=== PATIENT | male | born 1965 | race Caucasian/White ===

== ENCOUNTER 2019-08-30 08:31 | Emergency (ER) | payer OTHER, SELFPAY ==
[2019-08-30 08:44] VITALS: BP 144/81; PULSE 74; RESP 16; TEMP 37.2; O2SAT 100
--- NOTE | 2019-08-30 08:55 | ED.MALEGU ---
HPI - Male Genitourinary General Chief complaint: Urogenital-Male Stated complaint: Frequent urination and burning Time Seen by Provider: 08/30/19 08:56 Source: patient and RN notes reviewed History of Present Illness HPI Narrative: Patient is a 53-year-old male presents the urgent care with complaints of urinary frequency, urgency, burning with urination. Patient states is been ongoing for approximately 5 days. Patient has a history of kidney stones and had at the lips a trip see procedure done approximately 2 weeks ago. Patient denies any notable blood in the urine, visible with the naked eye. States that he called his urologist and they were unable to get him in until . Patient was instructed to follow-up at the urgent care to determine whether he had a urinary tract infection. Patient denies of any low back pain, fever, nausea, vomiting, abdominal pain. Patient has been using Tylenol. No other acute complaints. No acute distress noted. Patient read the plan of care. Related Data Home Medications Medication Instructions Recorded Confirmed aspirin 81 mg tablet,delayed 81 mg PO DAILY 07/22/19 release atorvastatin 80 mg tablet 80 mg PO DAILY 07/22/19 carvedilol 6.25 mg tablet 6.25 mg PO Q12H 07/22/19 ezetimibe 10 mg tablet 10 mg PO DAILY 07/22/19 losartan 25 mg tablet 25 mg PO DAILY 07/22/19 calcium polycarbophil [FiberCon] 1,250 mg PO WEEKLY 08/30/19 08/30/19 cholecalciferol (vitamin D3) 125 mcg PO DAILY 08/30/19 08/30/19 [Vitamin D3] nitroglycerin 0.4 mg SUBLINGUAL ONCE 08/30/19 08/30/19 tadalafil 20 mg PO DAILY 08/30/19 08/30/19 ticagrelor [Brilinta] 60 mg PO Q12H 08/30/19 08/30/19 Allergies Allergy/AdvReac Type Severity Reaction Status Date / Time lisinopril Allergy Unknown Verified 08/30/19 08:57 Review of Systems Review of Systems: Narrative: CONSTITUTIONAL: Denies fever, chills, or sweats. EYES: Denies visual changes, redness, or discharge. ENT: Denies rhinorrhea, congestion, sore throat, or otalgia. CARDIOVASCULAR: Denies chest pain, palpitations, or edema. RESPIRATORY: Denies cough or dyspnea. GASTROINTESTINAL: Denies abdominal pain, nausea, vomiting, or diarrhea. GENITOURINARY: Reports of dysuria, frequency, urgency SKIN: Denies rash or itching. MUSCULOSKELETAL: Denies back pain, joint pain, or myalgia. NEUROLOGIC: Denies headache, numbness, or weakness. All other systems reviewed are negative, except as documented in HPI. [facility] Past Medical History Medical History (Updated 08/30/19 @ 09:10 by KELLIE Pryor) Coronary artery disease involving [place] heart with angina pectoris Essential hypertension Surgical History Surgical History (Updated 07/22/19 @ 14:57 by Екатерина Ruiz, [facility]) History of heart artery stent Family History Family History (Updated 11/23/17 @ 07:15 by DOCTOR UNKNOWN) Sibling Family history of obesity Family history of coronary artery disease Family history of diabetes mellitus in first degree relative Mother Patient's mother is Family history of heart disease in male family member before age 55 Father Acute myocardial infarction, Onset Age: 52 Family history of coronary artery disease, Onset Age: 52 Family history of heart disease in male family member before age 55 Grandparent Carcinoma of colon Social History Social History Smoking status: Never smoker Second hand tobacco smoke exposure: No Alcohol intake: never Gender identity (if verbalized by the patient): Male Comments At the time of my signature, I reviewed and agree with the nursing past medical, surgical, social, and family history. There is no relevant family history pertinent to the patient complaint. Exam Narrative: Exam Narrative: GENERAL: This is a well-nourished, well-developed patient, in no apparent distress. HEAD: normocephalic, atraumatic. EYES: PERRL. Sclera clear/white. Vision
== END 2019-08-30 09:15 | disposition home or self-care (01) ==
PROVIDERS: Emergency Provider Nurse Practitioner Family; PCP Internal Medicine
DX: R30.0 Dysuria (principal); I25.110 Atherosclerotic heart disease of native coronary artery with unstable angina pectoris; I10 Essential (primary) hypertension; Z95.5 Presence of coronary angioplasty implant and graft; Z87.442 Personal history of urinary calculi
CPT/HCPCS: 81003; 99212; G0463

== ENCOUNTER 2020-02-06 08:21 | Outpatient (CLI) | payer OTHER, SELFPAY ==
[2020-02-06 09:09] LABS: Alanine Aminotransferase 33 U/L (4-50); Albumin Level 4.4 g/dL (3.5-5.1); Alkaline Phosphatase 63 U/L (38-126); Anion Gap 11.4 mmol/L (7-16); Aspartate Amino Transferase 26 U/L (17-59); Bilirubin,Total 0.8 mg/dL (0.2-1.3); Blood Urea Nitrogen 19 mg/dL (9-20); Calcium 9.5 mg/dL (8.4-10.2); Carbon Dioxide 27 mmol/L (22-30); Chloride 104 mmol/L (98-107); Cholesterol 152 mg/dL (0-200); Estimated Glomerular Filt Rate > 60; Glucose 104 mg/dL (75-110); HDL Direct 40 mg/dL; Potassium 4.4 mmol/L (3.4-5.0); Sodium 138 mmol/L (137-145); Triglycerides 79 mg/dL (<150)
[2020-02-06 09:20] LABS: LDL Cholesterol Direct 90 mg/dL
[2020-02-06 09:35] LABS: Vitamin D 25 Hydroxy 34.6 ng/mL
== END 2020-02-06 08:22 | disposition home or self-care (01) ==
PROVIDERS: PCP Internal Medicine; Visit Provider Nurse Practitioner Adult Health
DX: E78.00 Pure hypercholesterolemia, unspecified (principal); I25.2 Old myocardial infarction; E55.9 Vitamin D deficiency, unspecified
CPT/HCPCS: 36415; 80053; 80061; 82306

== ENCOUNTER 2021-08-18 10:30 | Emergency (ER) | payer OTHER, SELFPAY ==
[2021-08-18 10:39] VITALS: BP 136/86; PULSE 89; RESP 16; TEMP 36.8; O2SAT 98
--- NOTE | 2021-08-18 10:46 | ED.URI ---
HPI - URI/Sore Throat General Chief Complaint: Upper Respiratory Infection Stated Complaint: Cough Time Seen by Provider: 08/18/21 10:46 Source: patient, family, RN notes reviewed and old records reviewed Mode of arrival: ambulatory Limitations: no limitations History of Present Illness HPI Narrative: 55-year-old male presents to the [facility] with complaints of a cough. States he has had it since he is recovered from Covid. Was diagnosed July 31 with Covid. Reports very mild symptoms. States he just cannot get over the cough. Has tried [id number] products with minimal to no relief. Related Data Home Medications Medication Instructions Recorded Confirmed aspirin 81 mg tablet,delayed 81 mg PO DAILY 07/22/19 08/18/21 release atorvastatin 80 mg tablet 80 mg PO DAILY 07/22/19 08/18/21 carvedilol 6.25 mg tablet 6.25 mg PO Q12H 07/22/19 08/18/21 ezetimibe 10 mg tablet 10 mg PO DAILY 07/22/19 08/18/21 calcium polycarbophil [FiberCon] 1,250 mg PO WEEKLY 08/30/19 08/18/21 cholecalciferol (vitamin D3) 125 mcg PO DAILY 08/30/19 08/18/21 [Vitamin D3] nitroglycerin 0.4 mg SUBLINGUAL ONCE 08/30/19 08/18/21 tadalafil 20 mg PO DAILY 08/30/19 08/18/21 ticagrelor [Brilinta] 60 mg PO Q12H 08/30/19 08/18/21 losartan 50 mg PO DAILY 08/18/21 08/18/21 Allergies Allergy/AdvReac Type Severity Reaction Status Date / Time lisinopril Allergy Unknown Verified 08/18/21 10:49 Review of Systems Review of Systems: All systems reviewed & are unremarkable except as noted in HPI and below Constitutional: Constitutional: Reports no additional constitutional complaints, Denies chills, Denies fever(s) and Denies headache(s) Eyes: Eyes: Reports no additional eye complaints ENT: Reports system reviewed and no additional complaints, except as documented, Denies vertigo, Denies dizziness, Denies headache(s), Denies nasal congestion and Denies sore throat Cardiovascular: Cardiovascular: Reports no additional cardiovascular complaints, Denies chest pain, Denies syncope, Denies rapid heart rate and Denies dyspnea Respiratory: Respiratory: Reports no additional respiratory complaints, Denies chest congestion, Reports cough, Denies dyspnea and Denies wheezing Gastrointestinal: Gastrointestinal: Reports no additional gastrointestinal complaints, Denies abdominal pain, Denies diarrhea, Denies nausea and Denies vomiting Musculoskeletal: Musculoskeletal: Reports no additional musculoskeletal complaints and Denies numbness Integumentary/Breasts: Skin/Breast: Reports system reviewed and no additional complaints, except as docu Neurologic: Reports system reviewed and no additional complaints, except as documented, Denies vertigo, Denies dizziness, Denies syncope, Denies headache(s), Denies focal weakness and Denies numbness Psychiatric: Psychiatric: Reports no additional psychiatric complaints Allergic/Immunologic: Allergic/Immunologic: Reports no additional allergic/immunologic complaints and Denies wheezing PMFSH Past Medical History Medical History Coronary artery disease involving [place] heart with angina pectoris Essential hypertension Surgical History Surgical History History of heart artery stent Family History Family History Sibling Family history of obesity Family history of coronary artery disease Family history of diabetes mellitus in first degree relative Mother Patient's mother is Family history of heart disease in male family member before age 55 Father Acute myocardial infarction, Onset Age: 52 Family history of coronary artery disease, Onset Age: 52 Family history of heart disease in male family member before age 55 Grandparent Carcinoma of colon Social History Social History Smoking status: Never smoker Second h
== END 2021-08-18 11:06 | disposition home or self-care (01) ==
PROVIDERS: Emergency Provider Nurse Practitioner; PCP Internal Medicine
DX: U07.1 COVID-19 (principal); J20.8 Acute bronchitis due to other specified organisms; I25.110 Atherosclerotic heart disease of native coronary artery with unstable angina pectoris; I10 Essential (primary) hypertension; Z79.82 Long term (current) use of aspirin
CPT/HCPCS: 99213; G0463

== ENCOUNTER 2022-09-24 14:10 | Emergency (ER) | payer OTHER, SELFPAY ==
--- NOTE | 2022-09-24 14:12 | ED.URI ---
HPI - URI/Sore Throat General Chief Complaint: Upper Respiratory Infection Stated Complaint: Covid+ Time Seen by Provider: 09/24/22 14:12 Source: patient Mode of arrival: ambulatory Limitations: no limitations History of Present Illness HPI Narrative: Mr. Hubbard is a 56-year-old male patient presenting to the clinic today with complaints of cough and sinus congestion x5 days. He reports his tested positive for COVID earlier today clinic. He denies any fever or chills. He did an at-home COVID test and stated it was faintly positive. He denies any shortness of breath or chest pain. MD elicited complaint: sore throat and nasal congestion Related Data Home Medications Medication Instructions Recorded Confirmed aspirin 81 mg tablet,delayed 81 mg PO DAILY 07/22/19 10/30/21 release (Adult Aspirin Regimen) atorvastatin 80 mg tablet (Lipitor) 80 mg PO DAILY 07/22/19 10/30/21 carvedilol 6.25 mg tablet 6.25 mg PO Q12H 07/22/19 10/30/21 ezetimibe 10 mg tablet 10 mg PO DAILY 07/22/19 10/30/21 calcium polycarbophil 625 mg 1,250 mg PO WEEKLY 08/30/19 10/30/21 tablet (FiberCon) cholecalciferol (vitamin D3) 125 125 mcg PO DAILY 08/30/19 10/30/21 mcg (5,000 unit) tablet (Vitamin D3) tadalafil 20 mg tablet 20 mg PO DAILY 08/30/19 10/30/21 ticagrelor 60 mg tablet (Brilinta) 60 mg PO Q12H 08/30/19 10/30/21 losartan 50 mg tablet 50 mg PO DAILY 08/18/21 10/30/21 Allergies Allergy/AdvReac Type Severity Reaction Status Date / Time lisinopril Allergy Unknown Verified 09/24/22 14:22 Review of Systems Review of Systems: Pertinent positives per HPI. Patient denies any fever, chills, rash, headache, visual changes, dizziness, cough, shortness of breath, chest pain, palpitations, nausea, vomiting, diarrhea, constipation, abdominal pain, or any urinary issues. [facility] Past Medical History Medical History Coronary artery disease involving [place] heart with angina pectoris Essential hypertension Surgical History Surgical History History of heart artery stent Family History Family History Sibling Family history of obesity Family history of coronary artery disease Family history of diabetes mellitus in first degree relative Mother Patient's mother is Family history of heart disease in male family member before age 55 Father Acute myocardial infarction, Onset Age: 52 Family history of coronary artery disease, Onset Age: 52 Family history of heart disease in male family member before age 55 Grandparent Carcinoma of colon Social History Social History Smoking status: Never smoker Second hand tobacco smoke exposure: No Alcohol intake: never Gender identity (if verbalized by the patient): Male Comments At the time of my signature, I reviewed and agree with the nursing past medical, surgical, social, and family history. There is no relevant family history pertinent to the patient complaint. Exam Narrative: General: Well-developed, well nourished, in no apparent distress Head: Normocephalic, atraumatic Eyes: Pupils equally round and reactive to light bilaterally, EOM intact, sclera and conjunctive clear, no discharge, lids normal Ears: TMs intact and clear, ear canals clear, no drainage, grossly hearing normal. Nose: Nares patent, clear nasal discharge, no inflammation, no sinus tenderness. Mouth: Oral pharynx without lesions or masses, good dentition, MMM. Postnasal drip Neck: Supple, trachea midline, no enlargement of anterior or posterior cervical nodes, no thyroid masses or goiter palpable. Cardio: Regular rate and rhythm, s1 and s2 normal, no murmur appreciated. Resp: Clear to auscultation bilaterally, no rhonchi, rales, wheezing or rubs [place]
[2022-09-24 14:20] VITALS: BP 151/104; PULSE 65; RESP 16; TEMP 36.4; O2SAT 98
== END 2022-09-24 14:49 | disposition home or self-care (01) ==
PROVIDERS: Emergency Provider Nurse Practitioner Family; PCP Internal Medicine
DX: J06.9 Acute upper respiratory infection, unspecified (principal); I25.10 Atherosclerotic heart disease of native coronary artery without angina pectoris; I10 Essential (primary) hypertension; Z20.822 Contact with and (suspected) exposure to COVID-19
CPT/HCPCS: 87426; 99212; C9803; G0463

== ENCOUNTER 2023-12-08 06:33 | Emergency (ER) | payer OTHER, SELFPAY ==
[2023-12-08 06:37] VITALS: BP 185/112; PULSE 83; RESP 15; TEMP 36.8; O2SAT 100
[2023-12-08 07:26] VITALS: BP 149/102; PULSE 72; RESP 18; O2SAT 100
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
--- NOTE | 2023-12-08 07:38 | ECG_ITS ---
SEE SCANNED COPY FOR CONFIRMED REPORT MTDD
--- NOTE | 2023-12-08 07:39 | ED.EPISTAXIS ---
HPI - Epistaxis General Chief complaint: Epistaxis Stated complaint: nose bleed Time Seen by Provider: 12/08/23 06:54 History of Present Illness HPI Narrative: 57-year-old male presents emergency department for evaluation of epistaxis. Patient states Thursday he was getting into the shower had episode of nose bleeding. Patient suspects this was initiated by him blowing his nose. Patient had no epistaxis on Thursday. Patient was getting a shower today blew his nose again and did have some recurrent bleeding. Patient states he was unable to get the bleeding stopped at home so he presented to the emergency department for evaluation. Patient does take Brilinta. Patient does wear a CPAP at nighttime with the admitted he said to the lowest setting. Patient does have an air conditioner running in the house. Patient had epistaxis clamp placed in the waiting room and on on show evaluation bleeding had stopped. Related Data Home Medications Medication Instructions Recorded Confirmed aspirin 81 mg tablet,delayed 81 mg PO DAILY 07/22/19 09/24/22 release (Adult Aspirin Regimen) atorvastatin 80 mg tablet (Lipitor) 80 mg PO DAILY 07/22/19 09/24/22 carvedilol 6.25 mg tablet 6.25 mg PO Q12H 07/22/19 09/24/22 ezetimibe 10 mg tablet 10 mg PO DAILY 07/22/19 09/24/22 calcium polycarbophil 625 mg 1,250 mg PO WEEKLY 08/30/19 09/24/22 tablet (FiberCon) cholecalciferol (vitamin D3) 125 125 mcg PO DAILY 08/30/19 09/24/22 mcg (5,000 unit) tablet (Vitamin D3) tadalafil 20 mg tablet 20 mg PO DAILY 08/30/19 09/24/22 ticagrelor 60 mg tablet (Brilinta) 60 mg PO Q12H 08/30/19 09/24/22 losartan 50 mg tablet 50 mg PO DAILY 08/18/21 09/24/22 Allergies Allergy/AdvReac Type Severity Reaction Status Date / Time lisinopril Allergy Unknown Verified 12/08/23 07:29 Review of Systems Review of Systems: All systems reviewed & are unremarkable except as noted in HPI and below PMFSH Past Medical History Medical History Coronary artery disease involving [place] heart with angina pectoris Essential hypertension Surgical History Surgical History History of heart artery stent Family History Family History Sibling Family history of obesity Family history of coronary artery disease Family history of diabetes mellitus in first degree relative Mother Patient's mother is Family history of heart disease in male family member before age 55 Father Acute myocardial infarction, Onset Age: 52 Family history of coronary artery disease, Onset Age: 52 Family history of heart disease in male family member before age 55 Grandparent Carcinoma of colon Social History Social History Smoking status: Never smoker Second hand tobacco smoke exposure: No Alcohol intake: never Gender identity (if verbalized by the patient): Male Exam Narrative: APPEARANCE: Well appearing, no pain, no distress, well-nourished. HEAD: normocephalic, atraumatic. EYES: PERRLA/EOMI, conjunctivae clear. NOSE: Normal no drainage EARS:TMS clear with good light reflex. THROAT: Pharynx clear, no exudate. Nasal: Epistaxis was resolved after nasal clamp placed in triage, patient was asked to blow his nose and did clear additional clot out of the left nostril. Clamp was reapplied. NECK: Supple. No adenopathy, no masses. RESPIRATORY: Airway patent, respirations nonlabored. Clear to auscultation bilaterally, no rales, rhonchi, wheezing. CARDIOVASCULAR: Regular rate and rhythm without murmurs rubs or gallops. ABDOMINAL: Soft, nontender, nondistended, normal bowel sounds MUSCULOSKELETAL: Moves all extremities. Strength/ROM intact, No edema, No calf tenderness. NEURO: Alert. Cranial nerves II through XII intact. Good gait. Good
--- NOTE | 2023-12-08 08:18 | PC.NURSE ---
Active bleeding noted from left nares. Nasal clamped applied with gauze nasal drip pad. Dr. García informed
[2023-12-08 08:19] VITALS: BP 149/101; PULSE 70; RESP 18; TEMP 36.6; O2SAT 98
[2023-12-08 08:21] LABS: Basophils Percent Auto 0.7 % (0.2-1.2); Eosinophils Absolute Auto 0.1 K/mm3 (0-0.3); Eosinophils Percent Auto 1.7 % (0-4.4); Hematocrit 44.1 % (42.0-52.0); Hemoglobin 14.4 g/dL (14.0-18.0); Immature Granulocyte Absolute 0.02 K/mm3 (0.00-0.031); Immature Granulocyte Percent A 0.3 % (0-0.5); Lymphocytes Absolute Auto 1.64 K/mm3 (0.9-3.2); Lymphocytes Percent Auto 28.2 % (18.3-44.2); Mean Corpuscular HGB Conc 32.7 g/dl (32-36); Mean Corpuscular Hemoglobin 30.8 pg (26-34); Mean Corpuscular Volume 94.4 fl (80-100); Mean Platelet Volume 9.9 fl (7.4-10.4); Monocytes Absolute Auto 0.7 K/mm3 (0.1-0.6); Monocytes Percent Auto 11.9 % (2.6-8.5); Neutrophils Absolute Auto 3.3 K/mm3 (1.3-6.7); Neutrophils Percent Auto 57.2 % (45.5-73.1); Platelet Count Result 235 k/mm3 (150-375); Red Blood Count 4.67 M/mm3 (4.6-6.20); Red Cell Distribution Width 13.2 % (11.5-14.5); White Blood Count 5.8 K/mm3 (4.5-10.0)
[2023-12-08 08:31] LABS: Partial Thromboplastin Time 25.6 Seconds (22.3-36.8); Prothrombin Time 13.7 Seconds (11.1-14.7)
[2023-12-08 08:32] LABS: Alanine Aminotransferase 21 U/L (6-50); Albumin Level 3.9 g/dL (3.5-5.1); Alkaline Phosphatase 58 U/L (38-126); Anion Gap 4 mmol/L (4-12); Aspartate Amino Transferase 26 U/L (17-59); Blood Urea Nitrogen 22 mg/dL (9-20); Calcium 8.9 mg/dL (8.4-10.2); Carbon Dioxide 24 mmol/L (22-30); Chloride 110 mmol/L (98-107); Estimated CRCL calculation 90 ml/min; Estimated Glomerular Filt Rate > 60; Glucose 118 mg/dL (65-110); Potassium 3.8 mmol/L (3.4-5.0); Sodium 138 mmol/L (137-145)
--- NOTE | 2023-12-08 09:14 | PC.NURSE ---
Packing intact to left nares, no increase in bleeding noted.
[2023-12-08 09:37] VITALS: BP 151/90; PULSE 72; RESP 16; O2SAT 98
== END 2023-12-08 09:39 | disposition home or self-care (01) ==
PROVIDERS: Emergency Provider Emergency Medicine
DX: R04.0 Epistaxis (principal); I10 Essential (primary) hypertension; I25.119 Atherosclerotic heart disease of native coronary artery with unspecified angina pectoris; Z95.5 Presence of coronary angioplasty implant and graft; Z79.82 Long term (current) use of aspirin; Z79.899 Other long term (current) drug therapy; R94.31 Abnormal electrocardiogram [ECG] [EKG]; I51.7 Cardiomegaly
CPT/HCPCS: 30901; 36415; 80053; 85025; 85610; 85730; 93005; 99283; A9270

== ENCOUNTER 2023-12-16 19:30 | Emergency (ER) | payer OTHER, SELFPAY ==
[2023-12-16 19:35] VITALS: BP 151/89; PULSE 74; RESP 18; TEMP 36.6; O2SAT 100
--- NOTE | 2023-12-16 19:47 | ED.EPISTAXIS ---
HPI - Epistaxis General Chief complaint: Epistaxis Stated complaint: epitaxis Time Seen by Provider: 12/16/23 19:35 Source: patient Mode of arrival: ambulatory Limitations: no limitations History of Present Illness HPI Narrative: this is a 57-year-old male With PMH of CAD, HTN, NOAH who presents to the ED with chief complaint of epistaxis ongoing intermittently for the past week or so. Patient reports that today it started back up around 1800 and lasted about 20 minutes. He thought it had stopped but then it started again so he presents to the ER. takes Brilinta for CAD. reports starting air humidifier last night but does not seem to help. Bleeding is predominantly worse on the left. There was maybe a little bit of bleeding on the right today. He does feel the blood has been draining into his throat and he has had to hack up blood occasionally. Denies syncope, lightheadedness, shortness of breath. Related Data Home Medications Medication Instructions Recorded Confirmed aspirin 81 mg tablet,delayed 81 mg PO DAILY 07/22/19 09/24/22 release (Adult Aspirin Regimen) atorvastatin 80 mg tablet (Lipitor) 80 mg PO DAILY 07/22/19 09/24/22 carvedilol 6.25 mg tablet 6.25 mg PO Q12H 07/22/19 09/24/22 ezetimibe 10 mg tablet 10 mg PO DAILY 07/22/19 09/24/22 calcium polycarbophil 625 mg 1,250 mg PO WEEKLY 08/30/19 09/24/22 tablet (FiberCon) cholecalciferol (vitamin D3) 125 125 mcg PO DAILY 08/30/19 09/24/22 mcg (5,000 unit) tablet (Vitamin D3) tadalafil 20 mg tablet 20 mg PO DAILY 08/30/19 09/24/22 ticagrelor 60 mg tablet (Brilinta) 60 mg PO Q12H 08/30/19 09/24/22 losartan 50 mg tablet 50 mg PO DAILY 08/18/21 09/24/22 Allergies Allergy/AdvReac Type Severity Reaction Status Date / Time lisinopril Allergy Unknown Verified 12/08/23 07:29 Review of Systems Review of Systems: All systems as dictated in [facility] Past Medical History Medical History Coronary artery disease involving [place] heart with angina pectoris Essential hypertension Surgical History Surgical History History of heart artery stent Family History Family History Sibling Family history of obesity Family history of coronary artery disease Family history of diabetes mellitus in first degree relative Mother Patient's mother is Family history of heart disease in male family member before age 55 Father Acute myocardial infarction, Onset Age: 52 Family history of coronary artery disease, Onset Age: 52 Family history of heart disease in male family member before age 55 Grandparent Carcinoma of colon Social History Social History Smoking status: Never smoker Second hand tobacco smoke exposure: No Alcohol intake: never Gender identity (if verbalized by the patient): Male Exam Narrative: GENERAL: Well-appearing, well-nourished, and in no acute distress. HEAD: Normocephalic, atraumatic. EYES: PERRLA and EOMI. ENT: active epistaxis on the left. No active epistaxis on the right. Difficult to visualize exact spot of bleeding but seems to be anterior and along the septum. Mucous membranes moist. Oropharynx without tonsillar hypertrophy exudate or other lesions. NECK: Supple. No adenopathy or masses. CHEST: No respiratory distress. Clear to auscultation. No wheezes rales or rhonchi HEART: Regular rate and rhythm. No murmur heard. Normal peripheral pulses. ABDOMEN: Soft, nontender, nondistended, normal active bowel sounds. MSK: Normal range of motion. No edema. SKIN: Warm, dry, no rash. NEURO: Alert and oriented x3. No focal deficits. PSYCH: Normal mood and affect. Course Vital Signs Vital signs: Vital Signs Temperature 97.8 F 12/16/23 19:35 Pulse Rate 7
[2023-12-16] MEDS: OXYMETAZOLINE HCL 0.05% NAS 15 ML BTL (*BKC) 1 SPRAY NASAL (20:24)
== END 2023-12-16 21:52 | disposition home or self-care (01) ==
PROVIDERS: Emergency Provider Physician Assistant
DX: R04.0 Epistaxis (principal); I25.10 Atherosclerotic heart disease of native coronary artery without angina pectoris; I10 Essential (primary) hypertension; G47.33 Obstructive sleep apnea (adult) (pediatric); Z79.82 Long term (current) use of aspirin
CPT/HCPCS: 30901; 99283; A9270

== ENCOUNTER 2024-02-26 10:48 | Outpatient (CLI) | payer OTHER, SELFPAY ==
[2024-02-26 11:46] LABS: Cholesterol 149 mg/dL (0-200); HDL Direct 46 mg/dL; Triglycerides 73 mg/dL (<150)
[2024-02-26 11:57] LABS: LDL Cholesterol Direct 80 mg/dL
== END 2024-02-26 10:49 | disposition home or self-care (01) ==
LOC: ANHLAB 10:51
PROVIDERS: Visit Provider Nurse Practitioner Adult Health
DX: E78.00 Pure hypercholesterolemia, unspecified (principal)
CPT/HCPCS: 36415; 80061

== ENCOUNTER 2024-07-12 08:51 | Emergency (ER) | payer BC, SELFPAY ==
--- NOTE | ~2024-07-12 | XR_ITS ---
Clinical Indication: Cough PA and lateral views of the chest: Comparison: 03/17/2013 Findings: The lungs are clear, without evidence of focal consolidation or pleural effusion. Cardiome diastinal silhouette is within normal limits. Bones and soft tissues are unremarkable. Impression: Normal chest. Reviewed, dictated and finalized at [facility]. 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
--- NOTE | 2024-07-12 08:53 | ED_ITS ---
HPI - URI/Sore Throat General Chief Complaint: Upper Respiratory Infection Stated Complaint: Cold/flu symptoms Time Seen by Provider: 07/12/24 08:53 Source: patient Mode of arrival: ambulatory Limitations: no limitations History of Present Illness HPI Narrative: Ruben is a 58 old male patient presenting to the clinic today with complaints of cold/flu symptoms. He reports he is having cough, sinus pressure, nasal congestion, chest congestion, and chest discomfort with taking deep breaths and coughing. States the symptoms have been going on for or 6 days. Denies any known fever or chills. Cough is productive with yellow phlegm. Is a nonsmoker. No history of COPD or asthma. MD elicited complaint: sore throat and nasal congestion Related Data Home Medications ?Medication ?Instructions ?Recorded ?Confirmed ?Last Taken ?Type aspirin 81 mg tablet,delayed 81 mg PO DAILY 07/22/19 07/12/24 Unknown History release (Adult Aspirin Regimen) atorvastatin 80 mg tablet (Lipitor) 80 mg PO DAILY 07/22/19 07/12/24 Unknown History carvedilol 6.25 mg tablet 6.25 mg PO Q12H 07/22/19 07/12/24 Unknown History ezetimibe 10 mg tablet 10 mg PO DAILY 07/22/19 07/12/24 Unknown History calcium polycarbophil 625 mg 1,250 mg PO WEEKLY 08/30/19 07/12/24 Unknown History tablet (FiberCon) cholecalciferol (vitamin D3) 125 125 mcg PO DAILY 08/30/19 07/12/24 Unknown History mcg (5,000 unit) tablet (Vitamin D3) tadalafil 20 mg tablet 20 mg PO DAILY 08/30/19 07/12/24 Unknown History ticagrelor 60 mg tablet (Brilinta) 60 mg PO Q12H 08/30/19 07/12/24 Unknown History losartan 50 mg tablet 50 mg PO DAILY 08/18/21 07/12/24 Unknown History Allergies Allergy/AdvReac Type Severity Reaction Status Date / Time lisinopril Allergy Unknown Verified 07/12/24 08:59 Review of Systems Review of Systems: Pertinent positives per HPI. Patient denies any fever, chills, rash, headache, visual changes, dizziness, sore throat, chest pain, palpitations, nausea, vomiting, diarrhea, constipation, abdominal pain, or any urinary issues. PMFSH Past Medical History Medical History Coronary artery disease involving [place] heart with angina pectoris Essential hypertension Surgical History Surgical History History of heart artery stent Family History Family History Sibling Family history of obesity Family history of coronary artery disease Family history of diabetes mellitus in first degree relative Mother Patient's mother is Family history of heart disease in male family member before age 55 Father Acute myocardial infarction, Onset Age: 52 Family history of coronary artery disease, Onset Age: 52 Family history of heart disease in male family member before age 55 Grandparent Carcinoma of colon Social History Social History Smoking status: Never smoker Second hand tobacco smoke exposure: No Alcohol intake: never Gender identity (if verbalized by the patient): Male Comments At the time of my signature, I reviewed and agree with the nursing past medical, surgical, social, and family history. There is no relevant family history pertinent to the patient complaint. Exam Narrative: General: Well-developed, well nourished, in no apparent distress Head: Normocephalic, atraumatic Eyes: Pupils equally round and reactive to light bilaterally, EOM intact, sclera and conjunctive clear, no discharge, lids normal Ears: TMs intact and congested, ear canals ceruminous, no drainage, grossly hearing normal. Nose: Nares patent, and nasal discharge, no inflammation, no sinus tenderness. Mouth: Oral pharynx without lesions or masses, good dentition, MMM. Postnasal drip Neck: Supple, trachea midline, no enlargement of anterior or posterior cervical nodes, no thyroid masses or goiter palpable. Cardio: Regular rate and rhythm, s1 and s2 normal, no murmur appreciated. Resp: Diminished in the bases otherwise clear, no rhonchi, rales, wheezing or rubs Course Course Emergency Course: Portions of this record may have been created with voice recognition software. Level of Care: Express Care Visit Vital Signs Vital signs: Vital Signs Temperature 36.2 C L 07/12/24 09:01 Pulse Rate 87 07/12/24 09:01 Respiratory Rate 16 07/12/24 09:01 Blood Pressure 151/109 H 07/12/24 09:01 Pulse Oximetry 98 07/12/24 09:01 Oxygen Delivery Room Air 07/12/24 09:01 Temperature 36.2 C L 07/12/24 09:01 Pulse Rate 87 07/12/24 09:01 Respiratory Rate 16 07/12/24 09:01 Blood Pressure 151/109 H 07/12/24 09:01 Pulse Oximetry 98 07/12/24 09:01 Oxygen Delivery Room Air 07/12/24 09:01 Vital signs reviewed MDM - URI/Sore Throat MDM Narrative Medical decision making narrative: At the time of visit patient is resting comfortably on the exam table. Patient appears to be nontoxic. Diagnostics: Chest x-ray was performed negative in the clinic today. Plan: I suspect patient has bronchitis/URI. Supportive measures were discussed with the patient and they voiced understanding discharge instructions and agrees to treatment plan. Return precautions reviewed Differential Diagnosis Differential diagnosis: Likely upper respiratory infection, otitis media, sinusitis, viral infection, bronchitis, influenza, pharyngitis and other (COVID) Imaging Data Radiologist's impression: ITS Impressions Chest X-Ray 07/12/24 09:14 Impression: Normal chest. Discharge Plan Discharge Clinical Impression: Bronchitis Upper respiratory infection Qualifiers: URI type: unspecified URI Qualified Code(s): J06.9 - Acute upper respiratory infection, unspecified Patient Disposition: Home, Self-Care Condition: Stable Instructions: Antibiotic Form, Upper Respiratory Infection (ED), Acute Bronchitis (ED) Additional Instructions: Chest x-rays negative for any acute cardiopulmonary process. Take prescription medications only as prescribed-prednisone and albuterol inhaler Increase fluids and stay well hydrated Tylenol/motrin for pain/fever Flonase and OTC antihistamines as directed Vicks vapor rub to open sinuses Sinus rinses for congestion Cepacol spray, cough drops, throat lozenges, warm tea with honey/lemon, gargle salt water to soothe throat BRAT diet for diarrhea Clear liquids x 24 hours then advance as tolerated for nausea/vomiting Go to the ED if you develop a worsening in your condition- high fever not controlled by Tylenol or Motrin, dehydration, weakness, lethargy, shortness of breath, or chest pain. Follow up with your PCP in 3-5 days if symptoms persist. Patient Language: Korean Prescriptions: New prednisone 20 mg tablet 40 mg PO DAILY 5 Days Qty: 10 0RF albuterol sulfate 90 mcg/actuation HFA aerosol inhaler 2 puff inhalation Q4-6H PRN (Reason: shortness of breath or wheezing) 30 Days Qty: 8.5 0RF No Action losartan 50 mg tablet 50 mg PO DAILY calcium polycarbophil [FiberCon] 625 mg Tablet 1,250 mg PO WEEKLY Brilinta 60 mg Tablet 60 mg PO Q12H tadalafil 20 mg Tablet 20 mg PO DAILY cholecalciferol (vitamin D3) [Vitamin D3] 125 mcg (5,000 unit) Tablet 125 mcg PO DAILY aspirin [Adult Aspirin Regimen] 81 mg tablet,delayed release (DR/EC) 81 mg PO DAILY Patient Comments: carvedilol 6.25 mg tablet 6.25 mg PO Q12H ezetimibe 10 mg tablet 10 mg PO DAILY atorvastatin [Lipitor] 80 mg tablet 80 mg PO DAILY Follow-up/Referrals: UNKNOWN,DOCTOR [Non-Staff] - Time of Disposition: 09:19 Quality NIHSS Nursing Documentation ED NIHSS nursing documentation: reviewed/agree
[2024-07-12 09:01] VITALS: BP 151/109; PULSE 87; RESP 16; TEMP 36.2; O2SAT 98
== END 2024-07-12 09:25 | disposition home or self-care (01) ==
PROVIDERS: Emergency Provider Nurse Practitioner Family
DX: J40 Bronchitis, not specified as acute or chronic (principal); J06.9 Acute upper respiratory infection, unspecified; I25.110 Atherosclerotic heart disease of native coronary artery with unstable angina pectoris; I10 Essential (primary) hypertension; Z95.5 Presence of coronary angioplasty implant and graft
CPT/HCPCS: 71046; 99213; G0463

== ENCOUNTER 2024-12-19 13:40 | Emergency (ER) | payer BC, SELFPAY ==
--- NOTE | ~2024-12-19 | CT_ITS ---
EXAMINATION: CT abdomen pelvis wo con DATE: 12/19/2024 14:55 INDICATION: flank pain, hematuria TECHNIQUE: Computed tomography (CT) of the abdomen and pelvis was performed without intravenous contr ast. Automated exposure control and iterative reconstruction technique were employed. The dose-length product was 856.95 mGy-cm. COMPARISON: 05/29/2017; MR abdomen 06/12/2017. FINDINGS: Lower thorax: Coronary artery calcifications. Liver: Unremarkable. Redemonstration of a segment 4A hemangioma as determined by prior MR, decreased in size. Biliary/Gallbladder: Gallbladder is normal. No bile duct dilation. Pancreas: No mass or duct dilation. Spleen: Normal. Adrenals:No mass. Kidneys: Subcentimeter right upper pole hypodensity, too small to characterize, cyst on prior MRI. Mi ld right hydronephrosis. Normal left kidney. GI tract: No small or large bowel dilation. Normal appendix. Mesentery/Peritoneum: No ascites, mass, or free air. Retroperitoneum: No mass. Atherosclerotic calcifications of intra-abdominal arterial vessels. Pelvis: Nearly empty urinary bladder. Prostatomegaly 5 x 9 mm calcification in the right distal urete r. Soft Tissues: Small uncomplicated fat-containing umbilical and left inguinal hernias. Bones: No acute osseous finding. IMPRESSION: 5 x 9 mm right distal ureteral stone causing mild obstructive uropathy. Reviewed, dictated and finalized at location K.
[2024-12-19 13:43] VITALS: BP 177/100; PULSE 90; RESP 16; TEMP 36.6; O2SAT 96
[2024-12-19 14:02] VITALS: BP 194/111; PULSE 76; RESP 12; TEMP 36.6; O2SAT 97
[2024-12-19 14:14] VITALS: BP 194/111; PULSE 76; RESP 15; O2SAT 99
--- OUTSIDE RECORDS SUMMARY | 2024-12-19 14:53 | XMS_ITS | Clinical Summary ---
Author Organization [facility] [address] Address [address] [place] [address] Care Team Providers Care Car Repairer Name Role Phone Unknown, Notinfile Primary Care Provider Unavail able Allergies Active Allergy Reactions Criticality Noted Date Comments Lisinopril Cough Low 02/15/2019 Medications aspirin (ASPIRIN LOW DOSE) 81 mg tablet take 1 tablet by oral route every day 0 0 4 Active cholecalciferol (VITAMIN D-3) 5,000 unit tablet Take 1 tablet (5,000 Units total) by mouth daily Active polycarbophil (FIBERCON) 625 mg tablet Take 1 tablet (625 mg total) by mouth as needed Active tadalafiL (CIALIS) 20 mg tabletIndications :Erectile dysfunction due to arterial insufficiency TAKE 1 TABLET DAILY NEEDED FOR ERECTILE DYSFUNCTION 10 tablet 11 3 Active atorvastatin (LIPITOR) 80 mg tabletIndications :Pure hypercholesterole gelacio,Coronary artery disease involving [place] coronary artery of [place] heart without angina pectoris Take 1 tablet (80 mg total) by mouth daily 90 tablet 3 4 Active ticagrelor (Brilinta) 60 mg tabletIndications :Coronary artery disease involving [place] coronary artery of [place] heart without angina pectoris Take 1 tablet (60 mg total) by mouth 2 (two) times a day 180 tablet 3 4 Active carvediloL (COREG) 6.25 mg tabletIndications :Coronary artery disease involving [place] coronary artery of [place] heart without angina pectoris,Essentia l hypertension Take 1 tablet (6.25 mg total) by mouth 2 (two) times a day with meals 180 tablet 3 4 Active ezetimibe (ZETIA) 10 mg tabletIndications :Pure hypercholesterole gelacio,Coronary artery disease involving [place] coronary artery of [place] heart without angina pectoris Take 1 tablet (10 mg total) by mouth daily 90 tablet 3 4 Active losartan (COZAAR) 50 mg tabletIndications :Essential hypertension Take 1 tablet (50 mg total) by mouth daily 90 tablet 3 4 Active Active Problems Problem Noted Date Diagnosed Date Morbid (severe) obesity due to excess calories 0 03/07/2022 Essential hypertension 03/13/2021 NOAH (obstructive sleep apnea) 03/13/2021 Obesity (BMI 30-39.9) 08/10/2018 Family history of premature CAD 08/10/[address] elevation myocardial infarction (S TAVO) 03/04/2018 Presence of stent in coronary artery 01/23/2016 Overview (10/18/2016): Hx of heart artery stent Male erectile disorder 07/09/2015 Overview (10/18/2016): Mixed erectile dysfunction Coronary artery disease invo lving [place] coronary artery of [place] heart without angina pectoris 12/12/2014 Overview (10/18/2016): Coronary atherosclerosis Old myocardial infarction 12/12/2014 Overview (10/18/2016): Old myocardial infarction Pure hypercholesterolemia 12/12/2014 Overview (10/18/2016): Hyperlipidemia Resolved Problems Problem Noted Date Diagnosed Date Resolved Date Acute pain of left knee 03/13/202102/11 Counseling procedure with explicit context 07/09/2015 03/13/2021 Overview (10/18/2016): Encounter for medication counseling Patient encounter status 07/09/201507/2020 Overview (10/18/2016): Dietary counseling Encounters Date Type Department Care Team Description 12/14/[address] [facility] Cardiology [address] [place] [id number] Keesha Robertson NP from Last 3 Months Surgical History Surgery Date Site/Laterality Comments LITHOTRIPSY 08/13/2019 - 09/10/2019 CORONARY ANGIOPLASTY CARDIAC CATHETERIZATION Medical History Medical History Date Comments Hx Other Medical NOAH, HLD, CAD s /p PCI to Dx/LAD/Cx Heart disease 03/14/2013 Sleep apnea 03/15/2013 Kidney stone 1999 and 2019 Family History Medical History Relation Name Comments Coronary artery disease Brother 2 Hamilton Dorothy nary Artery Disease; Coronary artery disease Father Donavan Hubbard Dorothy nary Artery Disease; Cause of : Coronary Artery Disease Heart attack Father Donavan Hubbard Several MIs, st arting age 37, at 52 y.o. 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 Gender Identity Male 03/13/2021 12:39 AM CDT Sexual Orientation Straight 03/13/2021 12 :39 AM CDT Obstetrics History Last Filed Vital Signs Vital Sign Reading Time Taken Comments Blood Pressure 122/72 03/01/2024 3:36 PM CDT Pulse 82 03/01/2024 3:36 PM CDT Temperature - - Respiratory Rate - - Oxygen Saturation 96% 03/01/2024 3:36 PM CDT Inhaled Oxygen Concentration - - Weight 107 kg (236 lb) 03/01/2024 3:36 PM CDT Height 167.6 cm (5' 6) 03/01/2024 3:36 PM CDT Body Mass Index 38.09 03/01/2024 3:36 PM CDT Plan of Treatment Health Maintenance Due Date Last Done Comments Colon Cancer Screening-Colonoscopy 1965 Depression Screening 1965 Hepatitis C Screening 1965 Prostate Cancer Screening-PSA 1965 Hepatitis B Screening 12/28/1983 Regular Well Visit/Exam 18-64 12/28/1983 Zoster Vaccine (1 of 2) 12/28/2015 Influenza Vaccine (Season Ended) 2025 04/01/2021, 04/18/2020, 04/22/2019, Additional history exists DTaP/Tdap/Td Vaccine (2 - Td or Tdap) 06/29/2029 06/29/2019 Pneumococcal vaccine <65 Aged Out No longer eligible based on patient's age to complete this topic Insurance ANTHEM ACCESS ANTHEM ACCESS Care Teams Car Repairer Relationship Specialty Start Date End Date Unknown, Notinfile PCP - General 04/06/23
--- OUTSIDE RECORDS SUMMARY | 2024-12-19 14:53 | XMS_ITS | Clinical Summary ---
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 Gender Identity Not on file Sexual Orientation Not on file Plan of Treatment Health Maintenance Due Date Last Done Comments Hepatitis C Virus (HCV) Screening 1965 Hepatitis B Immunization (1 of 3 - 19+ 3-dose series) 1984 Colonoscopy 2010 Colorectal Cancer Screening 2010 Cologuard 12/28/2015 Immunochemical Fecal Occult Blood 12/28/2015 Pneumococcal Immunization (50+ years) (1 of 1 - PCV) 12/28/2015 Zoster Immunization (1 of 2) 12/28/2015 PSA Discussion 2020 Influenza Immunization (#1) 03/13/20240 01/2020, 04/22/2019, 04/12/2019, Additional history exists SARS-COV-2 Immunization ( season) 2024 Respiratory Syncytial Virus (RSV) Immunization (Adult) (1 - 1-dose 75+ series) 2040 DTaP/Tdap/Td Immunization Discontinued 06/29/2019 TdaP Immunization Completed 06/29/2019 Meningococcal Immunization (ACWY) Aged Out No longer eligible based on patient's age to complete this topic Pneumococcal Immunization Combined Aged Out No longer eligible based on patient's age to complete this topic Rotavirus Immunization Aged Out No lo nger eligible based on patient's age to complete this topic Insurance [employer] Member Subscriber Plan / Payer (Ef fective for All Dates) Name:Ruben Hubbard Member ID:[id number] Relation to Subscriber:Self Name:Ruben Hubbard Subscriber ID:Not on file Payer ID:PAPER Type:Not on file
--- OUTSIDE RECORDS SUMMARY | 2024-12-19 14:53 | XMS_ITS | Referral Summary ---
Author Organization [facility] [address] Address [address] [place] [address] Care Team Providers Care Water Carter Name Role Phone Unknown, Notinfile Primary Care Provider Unavail able Encounters Date Type Department Care Team Description 12/14/[address] [facility] Cardiology [address] [place] [address] Keesha Robertson NP from Last 3 Months Allergies Active Allergy Reactions Criticality Noted Date [...] tabletIndications :Pure hypercholesterole gelacio,Coronary artery disease involving [place] coronary artery of [place] heart without angina pectoris Take 1 tablet (80 mg total) by mouth daily 90 tablet 3 4 Active ticagrelor (Brilinta) 60 mg tabletIndications :Coronary artery disease involving [place] coronary artery of [place] heart without angina pectoris Take 1 tablet (60 mg total) by mouth 2 (two) times a day 180 tablet 3 4 Active carvediloL (COREG) 6.25 mg tabletIndications :Coronary artery disease involving [place] coronary artery of [place] heart without angina pectoris,Essentia l hypertension Take 1 tablet (6.25 mg total) by mouth 2 (two) times a day with meals 180 tablet 3 4 Active ezetimibe (ZETIA) 10 mg tabletIndications :Pure hypercholesterole gelacio,Coronary artery disease involving [place] coronary artery of [place] heart without angina pectoris Take 1 tablet [...] erectile dysfunction Coronary artery disease invo lving [place] coronary artery of [place] heart without angina pectoris 12/12/2014 Overview (10/18/2016): Coronary atherosclerosis Old myocardial infarction 12/12/2014 Overview (10/18/2016): Old myocardial infarction Pure hypercholesterolemia 12/12/2014 Overview (10/18/2016): Hyperlipidemia Resolved Problems Problem Noted Date Diagnosed Date Resolved Date Acute pain of left knee 03/13/202102/11 Counseling procedure with explicit context 07/09/2015 03/13/2021 Overview (10/18/2016): Encounter for medication counseling Patient encounter status 07/09/201507/2020 Overview (10/18/2016): Dietary counseling Social History Tobacco Use Types Packs/Day Years Used Date Smoking Tobacco: Never Smokeless Tobacco: Never Alcohol Use Standard Drinks/Week Comments Never 0 (1 standard drink = 0.6 oz pur e alcohol) Sex and Gender Information Value Date Recorded Sex Assigned at Not on file Legal Sex Male 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
--- OUTSIDE RECORDS SUMMARY | 2024-12-19 14:53 | XMS_ITS | Clinical Summary ---
Author Organization [facility] Address [address] [place] [address] Phone Care Team Providers Care Trust Evaluation Supervisor Name Role Phone Cecilia Gomez MD Primary Care Provider [phone] Allergies No known active allergies Medications carvedilol (COREG) 12.5 mg tablet Take 12.5 mg by mouth 2 times daily with meals. Active losartan (COZAAR) 100 mg tablet Take 100 mg by mouth daily. Active aspirin (JOHANN CHEWABLE) 81 mg Tablet, Chewable Take 81 mg by mouth daily. Active polycarbophil calcium (FIBERCON) 625 mg tablet Take 625 mg by mouth daily. Active prasugrel (EFFIENT) 10 mg Tablet Take 10 mg by mouth. Active silver sulfADIAZINE (SILVADENE) 1 % Cream Apply to affected area daily. 50 Gram None 6 Active traMADol (ULTRAM) 50 mg tablet Take 1 Tablet (50 mg) by mouth every 6 hours as needed for Pain, Moderate or Pain, Severe. 12 Tablet None 6 Active atorvastatin (LIPITOR) 10 mg tablet Take 10 mg by mouth Daily LATE. Active Active Problems No known active problems Social History Tobacco Use Types Packs/Day Years Used Date Smoking Tobacco: Never Smokeless Tobacco: Never Alcohol Use Standard Drinks/Week Comments No 0 (1 standard drink = 0.6 oz pur e alcohol) Sex and Gender Information Value Date Recorded Sex Assigned at Not on file Legal Sex Male 7:33 PM CDT Gender Identity Not on file Sexual Orientation Not on file Last Filed Vital Signs Vital Sign Reading Time Taken Comments Blood Pressure 112/76 02/05/2016 1:31 PM CDT Pulse - - Temperature 37.6 C (99.6 F) 01/16/2016 7:41 PM CDT Respiratory Rate 15 01/16/2016 10:54 PM CDT Oxygen Saturation 94% 01/16/2016 10:54 PM CDT Inhaled Oxygen Concentration - - Weight 102.1 kg (225 lb) 02/05/2016 1:31 PM CDT Height 167.6 cm (5' 6) 02/05/2016 1:31 PM CDT Body Mass Index 36.32 02/05/2016 1:31 PM CDT Plan of Treatment Health Maintenance Due Date Last Done Comments DTAP/TDAP/TD VACCINES (1 - Tdap) 1984 HEPATITIS B VACCINES (1 of 3 - 19+ 3-dose series) 12/11 COLORECTAL SCREENING 2010 Colorectal Cancer Screening 2010 FIT-DNA Q 3 years 2010 FIT/FOBT Q 1 year 2010 Flex Sig/CT Colonography Q 5 years 2010 ZOSTER VACCINE (1 of 2) 12/28/2015 INFLUENZA VACCINE (#1) 2024 Care Teams Trust Evaluation Supervisor Relationship Specialty Start Date End Date Cecilia Gomez MD PCP - General Family Practice 01/16/16
[2024-12-19 14:58] LABS: Add Urine Microscopic? YES; Appearance Urine Clear (Clear); Bacteria Urine None Seen /hpf; Bilirubin Urine Negative (Negative); Blood Urine 3+ (Negative); Color Urine Yellow (Yellow); Glucose Urine UA Negative (Negative); Ketones Urine Trace mg/dL (Negative); Leukocyte Esterase Ur Negative LEU/UL (Negative); Nitrate Urine Negative (Negative); Non Pathogenic Casts 0-2; Protein Urine Trace mg/dL (Negative); RBC Urine >100 /hpf (0-2); Specific Grav Ur 1.022 (1.001-1.035); Squamous Epithelial Cell Urine None Seen /hpf (Few); WBC Urine 0-5 /hpf (0-3); pH Urine 5.5 (5.0-9.0)
--- NOTE | 2024-12-19 15:07 | ED.MALEGU ---
HPI - Male Genitourinary General Chief complaint: Urogenital-Male Stated complaint: possible stone obstruction? Urinary output decreas Time Seen by Provider: 12/19/24 14:27 Source: patient, RN notes reviewed and old records reviewed Mode of arrival: ambulatory Limitations: no limitations History of Present Illness HPI Narrative: This is a 58 year old male who presents for evaluation of difficulty urinating. PAtient states that starting 1 month ago he developed right flank pain. He was out of town so did not seek treatment but he presumed he had a kidney stone. He was evaluated at an urgent care 2 weeks ago for penile pain, dysuria and he was treated for UTI. He states his flank pain has resolved but he reports he is urinating little bit at a time. He states his urine is dark yellow but he has not seen blood since the beginning of November. Related Data Home Medications ?Medication ?Instructions ?Recorded ?Confirmed ?Last Taken ?Type aspirin 81 mg tablet,delayed 81 mg PO DAILY 07/22/19 07/12/24 Unknown History release (Adult Aspirin Regimen) atorvastatin 80 mg tablet (Lipitor) 80 mg PO DAILY 07/22/19 07/12/24 Unknown History carvedilol 6.25 mg tablet 6.25 mg PO Q12H 07/22/19 07/12/24 Unknown History ezetimibe 10 mg tablet 10 mg PO DAILY 07/22/19 07/12/24 Unknown History calcium polycarbophil 625 mg 1,250 mg PO WEEKLY 08/30/19 07/12/24 Unknown History tablet (FiberCon) cholecalciferol (vitamin D3) 125 125 mcg PO DAILY 08/30/19 07/12/24 Unknown History mcg (5,000 unit) tablet (Vitamin D3) tadalafil 20 mg tablet 20 mg PO DAILY 08/30/19 07/12/24 Unknown History ticagrelor 60 mg tablet (Brilinta) 60 mg PO Q12H 08/30/19 07/12/24 Unknown History losartan 50 mg tablet 50 mg PO DAILY 08/18/21 07/12/24 Unknown History Allergies Allergy/AdvReac Type Severity Reaction Status Date / Time lisinopril Allergy Unknown Verified 07/12/24 08:59 [facility] Past Medical History Medical History (Updated 12/19/24 @ 16:31 by Melissa Ruiz MD) Calculus of ureter Coronary artery disease involving [place] heart with angina pectoris Essential hypertension Surgical History Surgical History History of heart artery stent Family History Family History Sibling Family history of obesity Family history of coronary artery disease Family history of diabetes mellitus in first degree relative Mother Patient's mother is Family history of heart disease in male family member before age 55 Father Acute myocardial infarction, Onset Age: 52 Family history of coronary artery disease, Onset Age: 52 Family history of heart disease in male family member before age 55 Grandparent Carcinoma of colon Social History Social History Smoking status: Never smoker Second hand tobacco smoke exposure: No Alcohol intake: never Gender identity (if verbalized by the patient): Male Exam Const: General: no acute distress and alert HENMT: Head: normal to inspection Ears: TM's normal bilaterally Eyes: EOM: EOMs intact bilaterally Resp: Effort & Inspection: normal respiratory effort Auscultation: clear to auscultation bilaterally Cardio: Rate: regular rate Rhythm: regular rhythm Heart sounds: no murmurs GI: GI Palp: Yes Soft to palpation, No Tenderness to palpation present (GI), No Guarding due to palpation present (GI) and No Rigid due to palpation Auscultation: normal bowel sounds : General: Yes no CVA tenderness Back/Spine/Pelvis: Back: no CVA tenderness Skin: General skin exam: normal color Rashes: no rashes Wounds: no wounds Neuro: General: patient oriented x3 and moves all extremities Cranial nerves: Yes CN's II-XII intact bilaterally Extrem: General: normal to inspection Psych: Mental Status: mental status grossly normal Affect: normal affect Attitude: cooperative Course Reevaluation(s) Reevaluation #1: I Discussed follow up with patient and CT findings of distal ureter stone as well as enlarged prostate. He understands and denies any other questions or concerns. Date: 12/19/24 Time: 16:28 Consultations Consultation #1: I spoke with Dr. Barrientos with urology of [facility]. I discussed case and that patient is to be discharged on flomax with follow up . He took patient;s info and patient and call [facility] for follow up . Date: 12/19/24 Time: 16:27 Vital Signs Vital signs: Vital Signs Temperature 97.9 F 12/19/24 13:43 Pulse Rate 90 12/19/24 13:43 Respiratory Rate 16 12/19/24 13:43 Blood Pressure 177/100 H 12/19/24 13:43 Pulse Oximetry 96 12/19/24 13:43 Oxygen Delivery Room Air 12/19/24 13:43 Temperature 97.9 F 12/19/24 14:02 Pulse Rate 70 12/19/24 16:48 Respiratory Rate 20 12/19/24 16:48 Blood Pressure 159/101 H 12/19/24 16:48 Pulse Oximetry 96 12/19/24 16:48 Oxygen Delivery Room Air 12/19/24 14:02 MDM - Male Genitourinary Differential Diagnosis Differential diagnosis: Likely urinary tract infection, urethritis, acute retention of urine, inguinal hernia and other (renal colic, kidney stone) Medical Records Attestation: I reviewed the patient's medical records. Lab Data Attestation: I reviewed the patient's lab results. 12/19/24 15:04 12/19/24 15:04 Labs: Lab Results 12/19/24 12/19/24 Range/Units 14:48 15:04 WBC 6.7 (4.5-10.0) K/mm3 RBC 4.68 (4.6-6.20) M/mm3 Hgb 14.5 (14.0-18.0) g/dL Hct 43.4 (42.0-52.0) % MCV 92.7 (80-100) fl MCH 31.0 (26-34) pg MCHC 33.4 (32-36) g/dl RDW 13.1 (11.5-14.5) % Plt Count 245 (150-375) k/mm3 MPV 9.7 (7.4-10.4) fl Immature Gran % (Auto) 0.2 (0-0.5) % Neut % (Auto) 51.8 (45.5-73.1) % Lymph % (Auto) 32.7 (18.3-44.2) % [place] % (Auto) 13.1 H (2.6-8.5) % Eos % (Auto) 1.4 (0-4.4) % Baso % (Auto) 0.8 (0.2-1.2) % Lymph # (Auto) 2.18 (0.9-3.2) K/mm3 [place] # (Auto) 0.9 H (0.1-0.6) K/mm3 Eos # (Auto) 0.1 (0-0.3) K/mm3 Baso # (Auto) 0.1 (0.0-0.1) K/mm3 Abs Immat Gran (auto) 0.01 (0.00-0.031) K/mm3 Absolute Neuts (auto) 3.5 (1.3-6.7) K/mm3 Absolute Nucleated RBC 0.000 (0.0-0.012) K/mm3 Nucleated RBC % 0.0 (0.0-0.2) % Sodium 136 L (137-145) mmol/L Potassium 3.7 (3.4-5.0) mmol/L Chloride 106 (98-107) mmol/L Carbon Dioxide 25 (22-30) mmol/L Anion Gap 5 (4-12) mmol/L BUN 17 (9-20) mg/dL Creatinine 0.82 (0.7-1.3) mg/dL Estim Creat Clear Calc 94 ml/min Estimated GFR > 60 (59 - ) Glucose 91 (65-110) mg/dL Calcium 9.5 (8.4-10.2) mg/dL Total Bilirubin 0.8 (0.2-1.3) mg/dL AST 28 (17-59) U/L ALT 29 (6-50) U/L Alkaline Phosphatase 65 (38-126) U/L Total Protein 7.0 (6.3-8.2) g/dL Albumin 4.0 (3.5-5.1) g/dL Urine Color Yellow (Yellow) Urine Appearance Clear (Clear) Urine pH 5.5 (5.0-9.0) Ur Specific [place] 1.022 (1.001-1.035) Urine Protein Trace (Negative) mg/dL Urine Glucose (UA) Negative (Negative) mg/dL Urine Ketones Trace H (Negative) mg/dL Ur Blood (Man) 3+ H (Negative) Urine Nitrate Negative (Negative) Urine Bilirubin Negative (Negative) Urine Urobilinogen 1.0 (<2.0) mg/dL Leukocyte Esterase Rfl Negative (Negative) MARY CARMEN/UL Urine RBC >100 H (0-2) /hpf Urine WBC 0-5 (0-3) /hpf Ur Squamous Epith Cells None seen (Few) /hpf Urine Bacteria None seen /hpf Urine Casts 0-2 Imaging Data Radiologist's impression: ITS Impressions Abdomen/Pelvis CT 12/19/24 15:56 IMPRESSION: 5 x 9 mm right distal ureteral stone causing mild obstructive uropathy. Discharge Plan Discharge Clinical Impression: Calculus of distal right ureter Patient Disposition: Home Condition: Stable Instructions: Antibiotic Form, Kidney Stones (ED), How to Strain Your Urine (ED) Additional Instructions: Today you were found to have right distal ureter kidney stone that is 5x9 mm. You will need to call urology for further treatment. Take flomax daily. REturn to ER if you develop vomiting, fever, or unbearable pain. You can call urology of [facility] [phone] or to arrange for evaluation of your kidney stone Patient Language: Chinese Prescriptions: New tamsulosin [Flomax] 0.4 mg capsule 0.4 mg PO DAILY Qty: 7 0RF No Action losartan 50 mg tablet 50 mg PO DAILY calcium polycarbophil [FiberCon] 625 mg Tablet 1,250 mg PO WEEKLY Brilinta 60 mg Tablet 60 mg PO Q12H tadalafil 20 mg Tablet 20 mg PO DAILY cholecalciferol (vitamin D3) [Vitamin D3] 125 mcg (5,000 unit) Tablet 125 mcg PO DAILY prednisone 20 mg tablet 40 mg PO DAILY 5 Days Qty: 10 0RF albuterol sulfate 90 mcg/actuation HFA aerosol inhaler 2 puff inhalation Q4-6H PRN (Reason: shortness of breath or wheezing) 30 Days Qty: 8.5 0RF aspirin [Adult Aspirin Regimen] 81 mg tablet,delayed release (DR/EC) 81 mg PO DAILY Patient Comments: carvedilol 6.25 mg tablet 6.25 mg PO Q12H ezetimibe 10 mg tablet 10 mg PO DAILY atorvastatin [Lipitor] 80 mg tablet 80 mg PO DAILY Follow-up/Referrals: Ankit Barrientos MD [Physician] - UNKNOWN,DOCTOR [Primary Care Provider] -
[2024-12-19 15:12] LABS: Basophils Absolute Auto 0.1 K/mm3 (0.0-0.1); Basophils Percent Auto 0.8 % (0.2-1.2); Eosinophils Absolute Auto 0.1 K/mm3 (0-0.3); Eosinophils Percent Auto 1.4 % (0-4.4); Hematocrit 43.4 % (42.0-52.0); Hemoglobin 14.5 g/dL (14.0-18.0); Immature Granulocyte Absolute 0.01 K/mm3 (0.00-0.031); Immature Granulocyte Percent A 0.2 % (0-0.5); Lymphocytes Absolute Auto 2.18 K/mm3 (0.9-3.2); Lymphocytes Percent Auto 32.7 % (18.3-44.2); Mean Corpuscular HGB Conc 33.4 g/dl (32-36); Mean Corpuscular Volume 92.7 fl (80-100); Mean Platelet Volume 9.7 fl (7.4-10.4); Monocytes Absolute Auto 0.9 K/mm3 (0.1-0.6); Monocytes Percent Auto 13.1 % (2.6-8.5); Neutrophils Absolute Auto 3.5 K/mm3 (1.3-6.7); Neutrophils Percent Auto 51.8 % (45.5-73.1); Platelet Count Result 245 k/mm3 (150-375); Red Blood Count 4.68 M/mm3 (4.6-6.20); Red Cell Distribution Width 13.1 % (11.5-14.5); White Blood Count 6.7 K/mm3 (4.5-10.0)
[2024-12-19 15:19] VITALS: BP 142/104; PULSE 72; RESP 14; O2SAT 97
[2024-12-19 15:27] LABS: Alanine Aminotransferase 29 U/L (6-50); Alkaline Phosphatase 65 U/L (38-126); Anion Gap 5 mmol/L (4-12); Aspartate Amino Transferase 28 U/L (17-59); Bilirubin,Total 0.8 mg/dL (0.2-1.3); Blood Urea Nitrogen 17 mg/dL (9-20); Calcium 9.5 mg/dL (8.4-10.2); Carbon Dioxide 25 mmol/L (22-30); Chloride 106 mmol/L (98-107); Estimated CRCL calculation 94 ml/min; Estimated Glomerular Filt Rate > 60; Glucose 91 mg/dL (65-110); Potassium 3.7 mmol/L (3.4-5.0); Sodium 136 mmol/L (137-145)
--- OUTSIDE RECORDS SUMMARY | 2024-12-19 15:45 | XMS_ITS | Clinical Summary ---
Author Organization [facility] Address [address] [place] [address] Phone Care Team Providers Care Mirror Fabrication Supervisor Name Role Phone Cecilia Gomez MD Primary Care Provider [phone] Allergies No known active allergies Medications carvedilol [...] 12/28/2015 INFLUENZA VACCINE (#1) 2024 Care Teams Mirror Fabrication Supervisor Relationship Specialty Start Date End Date Cecilia Gomez MD PCP - General Family Practice 01/16/16
--- OUTSIDE RECORDS SUMMARY | 2024-12-19 15:45 | XMS_ITS | Clinical Summary ---
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
--- OUTSIDE RECORDS SUMMARY | 2024-12-19 15:45 | XMS_ITS | Referral Summary ---
Author Organization [facility] [place] [address] Address [address] [place] [address] Care Team Providers Care Senior Support Analyst Name Role Phone Unknown, Notinfile Primary Care Provider Unavail able Encounters Date Type Department Care Team Description 12/14/2024 Telephone [facility] Cardiology [address] [place] [address] Keesha Robertson NP from Last [...] tabletIndications :Pure hypercholesterole gelacio,Coronary artery disease involving [place] coronary artery of [place] heart without angina pectoris Take 1 tablet (80 mg total) by mouth daily 90 tablet 3 4 Active ticagrelor (Brilinta) 60 mg tabletIndications :Coronary artery disease involving [place] coronary artery of [place] heart without angina pectoris Take 1 tablet (60 mg total) by mouth 2 (two) times a day 180 tablet 3 4 Active carvediloL (COREG) 6.25 mg tabletIndications :Coronary artery disease involving [place] coronary artery of [place] heart without angina pectoris,Essentia l hypertension Take 1 tablet (6.25 mg total) by mouth 2 (two) times a day with meals 180 tablet 3 4 Active ezetimibe (ZETIA) 10 mg tabletIndications :Pure hypercholesterole gelacio,Coronary artery disease involving [place] coronary artery of [place] heart without angina pectoris Take 1 tablet [...] erectile dysfunction Coronary artery disease invo lving [place] coronary artery of [place] heart without angina pectoris 12/12/2014 Overview (10/18/2016): [...] on file 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
--- OUTSIDE RECORDS SUMMARY | 2024-12-19 15:45 | XMS_ITS | Clinical Summary ---
Author Organization [facility] [address] Address [address] [place] [address] Care Team Providers Care Party Plan Dealer Name Role Phone Unknown, Notinfile Primary Care [...] tabletIndications :Pure hypercholesterole gelacio,Coronary artery disease involving [place] coronary artery of [place] heart without angina pectoris Take 1 tablet (80 mg total) by mouth daily 90 tablet 3 4 Active ticagrelor (Brilinta) 60 mg tabletIndications :Coronary artery disease involving [place] coronary artery of [place] heart without angina pectoris Take 1 tablet (60 mg total) by mouth 2 (two) times a day 180 tablet 3 4 Active carvediloL (COREG) 6.25 mg tabletIndications :Coronary artery disease involving [place] coronary artery of [place] heart without angina pectoris,Essentia l hypertension Take 1 tablet (6.25 mg total) by mouth 2 (two) times a day with meals 180 tablet 3 4 Active ezetimibe (ZETIA) 10 mg tabletIndications :Pure hypercholesterole gelacio,Coronary artery disease involving [place] coronary artery of [place] heart without angina pectoris Take 1 tablet [...] erectile dysfunction Coronary artery disease invo lving [place] coronary artery of [place] heart without angina pectoris 12/12/2014 Overview (10/18/2016): [...] Type Department Care Team Description 12/14/2024 Telephone [facility] Medical [facility] Cardiology [address] [place] [phone] Keesha Robertson NP from Last 3 Months [...] on file 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
[2024-12-19 16:48] VITALS: BP 159/101; PULSE 70; RESP 20; O2SAT 96
== END 2024-12-19 16:50 | disposition home or self-care (01) ==
PROVIDERS: Emergency Provider General Practice
DX: N13.9 Obstructive and reflux uropathy, unspecified (principal); N20.1 Calculus of ureter; I25.119 Atherosclerotic heart disease of native coronary artery with unspecified angina pectoris; I10 Essential (primary) hypertension; Z95.5 Presence of coronary angioplasty implant and graft; Z87.442 Personal history of urinary calculi; Z79.82 Long term (current) use of aspirin; Z79.899 Other long term (current) drug therapy
CPT/HCPCS: 36415; 74176; 80053; 81001; 85025; 99284

== ENCOUNTER 2024-12-26 12:16 | Outpatient (CLI) | payer BC, SELFPAY ==
--- NOTE | ~2024-12-26 | XR_ITS ---
XR abdomen/kub 1V Ordering provider: Simi Harley APRN History: . Rt ureteral stone . Comparison: None. FINDINGS: BOWEL: Nonobstructive bowel gas pattern. ORGANOMEGALY: None. SIGNIFICANT PATHOLOGIC CALCIFICATIONS: Calcification seen bilaterally laterally in the pelvis are most likely phlebolith' s. Linear calcific ations seen in the area of the right sacral alar inferiorly which may be a stone in the right lower u reter measuring 10 x 2.4 millimeters. OTHER: No free air is seen under the diaphragm. IMPRESSION: Highly suggestive stone in the right lower ureter. Follow-up advised. Reviewed, dictated and finalized at location A.
--- OUTSIDE RECORDS SUMMARY | 2024-12-26 13:15 | XMS_ITS | Clinical Summary ---
Author Organization 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
--- OUTSIDE RECORDS SUMMARY | 2024-12-26 13:15 | XMS_ITS | Clinical Summary ---
Author Organization [facility] [address] Address [address] [place] [address] Care Team Providers Care Gunner'S Mate G Name Role Phone Unknown, Notinfile Primary Care [...] tabletIndications :Pure hypercholesterole gelacio,Coronary artery disease involving [place] coronary artery of [place] heart without angina pectoris Take 1 tablet (80 mg total) by mouth daily 90 tablet 3 4 Active ticagrelor (Brilinta) 60 mg tabletIndications :Coronary artery disease involving [place] coronary artery of [place] heart without angina pectoris Take 1 tablet (60 mg total) by mouth 2 (two) times a day 180 tablet 3 4 Active carvediloL (COREG) 6.25 mg tabletIndications :Coronary artery disease involving [place] coronary artery of [place] heart without angina pectoris,Essentia l hypertension Take 1 tablet (6.25 mg total) by mouth 2 (two) times a day with meals 180 tablet 3 4 Active ezetimibe (ZETIA) 10 mg tabletIndications :Pure hypercholesterole gelacio,Coronary artery disease involving [place] coronary artery of [place] heart without angina pectoris Take 1 [...] erectile dysfunction Coronary artery disease invo lving [place] coronary artery of [place] heart without angina pectoris 12/12/2014 Overview [...] Encounters Date Type Department Care Team Description 12/23/2024 Telephone [facility] Medical [facility] Cardiology [address] [place] [phone] Keseha Robertson NP 12/14/2024 Telephone [facility] Medical [facility] Cardiology [address] [facility] [address] [place] [address] Keesha Robertson NP from Last [...] on file 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
--- OUTSIDE RECORDS SUMMARY | 2024-12-26 13:15 | XMS_ITS | Clinical Summary ---
Author Organization [facility] Address [address] [place] [address] Phone Care Team Providers Care Welfare Worker Name Role Phone Cecilia Gomez MD Primary Care Provider [phone]- [phone] Allergies No known active allergies Medications carvedilol [...] 12/28/2015 INFLUENZA VACCINE (#1) 2024 Care Teams Welfare Worker Relationship Specialty Start Date End Date Cecilia Gomez MD PCP - General Family Practice 01/16/16
--- OUTSIDE RECORDS SUMMARY | 2024-12-26 13:15 | XMS_ITS | Referral Summary ---
Author Organization [facility] [place] [address] [facility] [address] Address [address] [place] [address] Care Team Providers Care Office Executive Name Role Phone Unknown, Notinfile Primary Care Provider Unavail able Encounters Date Type Department Care Team Description 12/23/2024 Telephone [facility] Medical [facility] Cardiology [address] [place] [address] Keesha Robertson NP 12/14/2024 Telephone [facility] Cardiology [address] [place] [address] Keesha Robertson NP from Last [...] tabletIndications :Pure hypercholesterole gelacio,Coronary artery disease involving [place] coronary artery of [place] heart without angina pectoris Take 1 tablet (80 mg total) by mouth daily 90 tablet 3 4 Active ticagrelor (Brilinta) 60 mg tabletIndications :Coronary artery disease involving [place] coronary artery of [place] heart without angina pectoris Take 1 tablet (60 mg total) by mouth 2 (two) times a day 180 tablet 3 4 Active carvediloL (COREG) 6.25 mg tabletIndications :Coronary artery disease involving [place] coronary artery of [place] heart without angina pectoris,Essentia l hypertension Take 1 tablet (6.25 mg total) by mouth 2 (two) times a day with meals 180 tablet 3 4 Active ezetimibe (ZETIA) 10 mg tabletIndications :Pure hypercholesterole gelacio,Coronary artery disease involving [place] coronary artery of [place] heart without angina pectoris Take 1 tablet [...] erectile dysfunction Coronary artery disease invo lving [place] coronary artery of [place] heart without angina pectoris 12/12/2014 Overview (10/18/2016): [...] on file 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
--- OUTSIDE RECORDS SUMMARY | 2024-12-26 13:15 | XMS_ITS | Encounter Summary ---
Author Organization [facility] Address [address] [place] [address] Care Team Providers Care Single Needle Operator Name Role Phone Unknown, Notinfile Primary Care Provider Unavail able Encounter Details Date Type Department Care Team (Late st Contact Info) Description 12/23/[address] 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 * Telephone Encounter - Ria Zhou - 12/23/2024 8:12 AM CDT Pt states he is currently taking Losartan but he has kidney stones and he was just prescribed Flomax (Tamsulosin). Wants to know if it is safe to take both meds together. Please advise, thank you. Contact: documented in this encounter Plan of Treatment Not on file documented as of this encounter Visit Diagnoses Not on filedocumented in this encounter Care Teams Single Needle Operator Relationship Specialty Start Date End Date Unknown, Notinfile PCP - General 04/06/23 documented as of this encounter
== END 2024-12-26 12:17 | disposition home or self-care (01) ==
PROVIDERS: Visit Provider Nurse Practitioner Family
DX: N20.1 Calculus of ureter (principal)
CPT/HCPCS: 74018

== ENCOUNTER 2025-01-12 09:02 | Outpatient (CLI) | payer BC, SELFPAY ==
--- OUTSIDE RECORDS SUMMARY | 2025-01-12 09:11 | XMS_ITS | Clinical Summary ---
Author Organization [facility] Address [address] [place] [address] Phone Care Team Providers Care Processing Spec Name Role Phone Cecilia Gomez MD Primary Care Provider +1- [phone] Allergies No known active allergies Medications carvedilol [...] (1 of 2) 12/28/2015 INFLUENZA VACCINE (#1) 2025 Care Teams Processing Spec Relationship Specialty Start Date End Date Cecilia Gomez MD PCP - General Family Practice 01/16/16
--- OUTSIDE RECORDS SUMMARY | 2025-01-12 09:11 | XMS_ITS | Encounter Summary ---
Author Organization [facility] Address [address] [place] [address] Care Team Providers Care Treating Plant Pumper Name Role Phone Lc Mosher MD Primary Care Provider Yamel Siu NP Primary Care Provider [phone] Encounter Details Date Type Department Care Team (Late st Contact Info) Description 10/04/2021 [place] Message Enc [facility] Medical Group Family & Internal Medicine [address] [address] [facility] Provider WANDA Social History Tobacco Use Types Packs/Day Years Used Date Smoking Tobacco: Never Smokeless Tobacco: Never Alcohol Use Standard Drinks/Week Comments No 0 (1 standard drink = 0.6 oz pur e alcohol) AUDIT-C Answer Date Recorded Frequency of Alcohol Consumption Never 06/28/2018 Average Number of Drinks Not on file 018 Frequency of Binge Drinking Not on file 06/12 PHQ-2 Answer Date Recorded PHQ-2 Score - If the patient scores above 3, please move on to questions 3-9 0 08/23/2021 Education Answer Date Recorded What is the highest level of school you have completed or the highest degree you have received? Associate degree: occupational, technical, or vocational program 06/28/2018 Sex and Gender Information Value Date Recorded Sex Assigned at Not on file Legal Sex Male 8:54 PM CDT Gender Identity Male 07/29/2021 3:15 PM CAREGIVER SERVICES HOME Sexual Orientation Straight 07/29/2021 3: 15 PM CAREGIVER SERVICES HOME documented as of this encounter Plan of Treatment Not on file documented as of this encounter Visit Diagnoses Not on filedocumented in this encounter Additional Health Concerns Assessment Noted Time PHQ-9 Depression Total Score: 0 08/23/19 9:05 AM CAREGIVER SERVICES HOME documented as of this encounter Care Teams Treating Plant Pumper Relationship Specialty Start Date End Date Lc Mosher MD PCP - General INTERNAL MEDICINE 06/28/18 10/16/22 Yamel Gonzalez NP [address] [place] [address] PCP - General NURSE PRACTITIONER 10/17/22 documented as of this encounter
--- OUTSIDE RECORDS SUMMARY | 2025-01-12 09:11 | XMS_ITS | Clinical Summary ---
Author Organization [facility] Address [address] [place] [address] Care Team Providers Care Implant Coordinator Name Role Phone Yamel Gonzalez NP Primary Care Provider [phone] Allergies Active Allergy Reactions Criticality Noted Date Comments Lisinopril Cough Low 02/15/2019 Medications aspirin (ASPIRIN LOW DOSE) 81 MG tablet Take 1 tablet by mouth daily. 8 Active atorvastatin 80 MG tablet Take 1 tablet by mouth nightly at bedtime. 7 Active polycarbophil (FIBERCON) 625 MG tablet Take 1 tablet by mouth once a week. 8 Active carvedilol 6.25 MG tablet Take 1 tablet by mouth 2 (two) times daily. 7 Active Cholecalciferol (VITAMIN D-3) 5000 units Tab Take 4,000 Units by mouth daily. 8 Active nitroglycerin 0.[address] 0.4 mg under the tongue. 8 Active ezetimibe 10 MG tablet Take 10 mg by mouth daily. 9 Active BRILINTA 60 MG tablet Take 1 tablet by mouth 2 (two) times daily. 9 Active losartan 50 MG tablet Take 50 mg by mouth daily. 2 Active benzonatate 100 MG capsule TAKE 1 CAPSULE BY MOUTH 3 TIMES A DAY NEEDED FOR COUGH 2 Active predniSONE 20 MG tablet Take 20 mg by mouth daily. 2 Active tadalafil (CIALIS) 20 MG tabletIndications :Vasculogenic erectile dysfunction, unspecified vasculogenic erectile dysfunction type Take 1 tablet (20 mg total) by mouth daily as needed. 10 tablet 4 2 Active Active Problems Problem Noted Date Diagnosed Date Bilateral impacted cerumen 08/23/2021 COVID-19 07/31/2021 Nephrolithiasis 01/04/2020 Hemangioma of liver 07/20/2019 Overview (07/20/2019): Seen on MRI of Abdomen 06/12/17 (in Media tab hx notes from 10/23/17) BMI 37.0-37.9, adult 08/10/[address] elevation myocardial infarction (S TAVO) 03/04/2018 Constipation 01/05/2018 Coronary disease 10/01/2017 Essential hypertension 10/01/2017 Hyperlipidemia 10/01/2017 S/P angioplasty with stent 10/01/2017 Sleep apnea 10/01/2017 Vitamin D deficiency 10/01/2017 Presence of stent in coronary artery 01/23/2016 Overview (06/29/2018): Overview: Hx of heart artery stent Male erectile disorder 07/09/2015 Overview (06/29/2018): Overview: Mixed erectile dysfunction Old myocardial infarction 12/12/2014 Overview (06/29/2018): Overview: Old myocardial infarction Resolved Problems Problem Noted Date Diagnosed Date Resolved Date Screening for prostate cancer 02/13/2021 02/18/2021 Wears glasses 10/01/2017 03/23/2020 Immunizations Immunization Administration Dates Next Due Flucelvax 6 Months+ (Prefill ed Syringe) 04/18/2020,04/22/2019 Influenza (Generic) 05/16/2018, 8,03/29/2017,2015,05/15/2014,04/28/2013 Influenza Adult (Generic) 04/01/2021,01/2020,04/12/2019,2017 Tdap (Adacel) 06/29/2019 Family History Medical History Relation Comments No Known Problems Daughter Heart Father Heart Disease Father IN Father Colon Cancer Maternal Grandmother Heart Mother IN Mother Diabetes Sister Relation Status Comments Daughter Alive Father Maternal Grandmother Mother Sister Social History Tobacco Use Types Packs/Day Years Used Date Smoking Tobacco: Never Smokeless Tobacco: Never Tobacco Cessation:Counseling Given: No Alcohol Use Standard Drinks/Week Comments No 0 [...] CDT Gender Identity Male 07/29/2021 3:15 PM LOCOMOTIVE OBSERVER Sexual Orientation Straight 07/29/2021 3: 15 PM LOCOMOTIVE OBSERVER Last Filed Vital Signs Vital Sign Reading Time Taken Comments Blood Pressure 120/80 08/23/2021 8:53 AM LOCOMOTIVE OBSERVER Pulse 78 08/23/2021 8:53 AM LOCOMOTIVE OBSERVER Temperature 36.6 C (97.8 F) 08/23/2021 8:53 AM LOCOMOTIVE OBSERVER Respiratory Rate 18 08/23/2021 8:53 AM LOCOMOTIVE OBSERVER Oxygen Saturation 98% 08/23/2021 8:53 AM LOCOMOTIVE OBSERVER Inhaled Oxygen Concentration - - Weight 103.1 kg (227 lb 3.2 oz) 08/23/2021 8:53 AM LOCOMOTIVE OBSERVER Height 167.6 cm (5' 6) 08/23/2021 8:53 AM LOCOMOTIVE OBSERVER Body Mass Index 36.67 08/23/2021 8:53 AM LOCOMOTIVE OBSERVER Plan of Treatment Health Maintenance Due Date Last Done Comments ASCVD Statin 1965 Colorectal Cancer Screening Colonoscopy (10 Years) 1965 Annual Physical 1968 Hepatitis C 12/28/1983 Hepatitis B Vaccines (1 of 3 - 19+ 3-dose series) 1984 Pneumococcal Vaccine: 50+ Years (1 of 2 - PCV) 1984 Zoster Vaccines (1 of 2) 12/28/2015 ASCVD LDL 11/05/2018 11/05/2017, 11/05/2017 COVID-19 Vaccine (4 - 2023-2 5 season) 2024 06/30/2021, 10/27/2020, 10/06/2020 DTaP, Tdap and Td Vaccines ( 2 - Td or Tdap) 06/29/2029 06/29/2019 Meningococcal B Vaccine Aged Out No l onger eligible based on patient's age to complete this topic Meningococcal Vaccine Aged Out No zachery katia eligible based on patient's age to complete this topic RSV Immunizations Under 20 Months Aged Out No longer eligible b ased on patient's age to complete this topic Procedures Procedure Name Priority Date/Time Associated Diagnosis Comments LIPID PANEL Routine 11/05/2017 9:32 AM CDT from Last 3 Months or Most Recently Relevant to Health Maintenance Results * (ABNORMAL) LIPID PANEL (11/05/2017 9:32 AM CDT) CHOLESTEROL 132 0.0 - 199.0 MG/DL 11/05/2017 10:55 AM T [facility] TRIGLYCERIDES 66 <150 MG/DL 11/05/2017 10:55 AM T [facility] HDL 41(H) >40.0 MG/DL 11/05/2017 10:55 AM [facility] LDL (CALCULATED) 77.8 <100 MG/L 11/06/19 18 10:55 AM T [facility] NON HDL CHOLESTEROL 91 0 - 129 MG/DL 11/05/2017 10:55 AM [facility] CHOL/HDL RATIO 3.2 0.0 - 4.5 11/05/2017 10:55 AM T [facility] VLDL CALCULATION 13 5 - 55 MG/DL 11/05/2017 10:55 AM [facility] LIPID INTERPRETATION 11/05/2017 10:55 AM T [facility] Comment: NIH CONCENSUS REPORT RECOMMENDATIONS: ADULT CHILD LOW RISK: CHOLESTEROL <200 <170 TRIGLYCERIDE <150 --- HDL >=60 --- LDL <100 <110 BORDERLINE: CHOLESTEROL 200-239 170-199 TRIGLYCERIDE 150-199 --- HDL 40-59 --- LDL 100-159 110-129 HIGH RISK: CHOLESTEROL >=240 >=200 TRIGLYCERIDE >=200 --- HDL <40 --- LDL >=160 >=130 11/05/2017 9:32 AM CDT 11/05/2017 9:33 AM CDT us Generic Conversion Md [facility] Final R esult [facility] [address] [place] [address], from Last 3 Months or Most Recently Relevant to Health Maintenance Insurance [employer] Advance Directives * Full Code (Latest Code Status on File) Date Activated Date Inactivated Comments 08/15/2019 3:15 PM 08/15/2019 6:32 PM Care Teams Implant Coordinator Relationship Specialty Start Date End Date Yamel Gonzalez NP [address] [place] [address] PCP - General NURSE PRACTITIONER 10/17/22
--- OUTSIDE RECORDS SUMMARY | 2025-01-12 09:11 | XMS_ITS | Encounter Summary ---
Author Organization [facility] Address [address] [place] [address] Care Team Providers Care Single Stayer Operator Name Role Phone Lc Mosher MD Primary Care Provider U Yamel Liriano NP Primary Care Provider [phone] Encounter Details Date Type Department Care Team (Late st Contact Info) Description 05/15/2020 [employer] Message Enc [facility] Medical Group Family & Internal Medicine [address] [address] [facility] MEDICATION CONTRA-INDICATION Social History Tobacco Use Types Packs/Day Years [...] please move on to questions 3-9 0 05/15/2020 Education Answer Date Recorded What is the highest level of school you have completed or the highest degree you have received? Associate degree: occupational, technical, or vocational program 06/28/2018 Sex and Gender Information Value Date Recorded Sex Assigned at Not on file Legal Sex Male 8:54 PM CDT Gender Identity Male 07/29/2021 3:15 PM MANAGER PATIENT Sexual Orientation Straight 07/29/2021 3: 15 PM MANAGER PATIENT COVID-19 Exposure Response Date Recorded In the last month, have you been in contact with someone who was confirmed or suspected to have Coronavirus / COVID-19? No / Unsure 05/14/2020 5:31 PM MANAGER PATIENT documented as of this encounter Plan of Treatment Not on file documented as of this encounter Visit Diagnoses Not on filedocumented in this encounter Additional Health Concerns Infection Onset Date Last Indicated Resolved Time COVID-19 Rule Out 07/29/2021 07/29/2021 07/30/2021 6:19 AM MANAGER PATIENT COVID-19 Confirmed 07/29/2021 07/29/2021 12:35 AM MANAGER PATIENT documented as of this encounter Care Teams Single Stayer Operator Relationship Specialty Start Date End Date Lc Mosher MD PCP - General INTERNAL MEDICINE 06/28/18 10/16/22 Yamel Gonzalez NP [address] [place] [address] PCP - General NURSE PRACTITIONER 10/17/22 documented as of this encounter
--- OUTSIDE RECORDS SUMMARY | 2025-01-12 09:11 | XMS_ITS | Encounter Summary ---
Author Organization [facility] Address Formerly [facility], [id number] [place] [address] Care Team Providers Care Veneer Clipper Name Role Phone Lc Mosher MD Primary Care Provider U Yamel Liriano NP Primary Care Provider [phone] Encounter Details Date Type Department Care Team (Late st Contact Info) Description 08/09/2019 Prep for Procedure [facility] [address] [place], [place] [id number] Josefina Mcdonald MD [address] [address] Social History Tobacco Use Types Packs/Day Years Used Date Smoking Tobacco: Never Smokeless Tobacco: Never Alcohol Use Standard Drinks/Week Comments No 0 (1 standard drink = 0.6 oz pur e alcohol) AUDIT-C Answer Date Recorded Frequency of Alcohol Consumption Never 06/28/2018 Average Number of Drinks Not on file 018 Frequency of Binge Drinking Not on file 06/12 PHQ-2 Answer Date Recorded PHQ-2 Score 0 06/21/2019 Education Answer Date Recorded What is the highest level of school you have completed or the highest degree you have received? Associate degree: occupational, technical, or vocational program 06/28/2018 Sex and Gender Information Value Date Recorded Sex Assigned at Not on file Legal Sex Male 8:54 PM CDT Gender Identity Male 07/29/2021 3:15 PM ENDOSCOPY RN Sexual Orientation Straight 07/29/2021 3: 15 PM ENDOSCOPY RN documented as of this encounter Plan of Treatment Not on file documented as of this encounter Results * XR ABD KUB (08/15/2019 10:46 AM ENDOSCOPY RN) Anatomical Region Laterality Modality Abdomen Radiographic Lakeshia ging 08/15/2019 3:50 PM ENDOSCOPY RN Impressions 08/15/2019 3:51 PM ENDOSCOPY RN IMPRESSION: 1. There is a 9 mm stone near the left UPJ. 2. Additional 6 mm left renal stone. Interpreted By: Roscoe Patel MD, 08/15/2019 3:50 PM Narrative 08/15/2019 3:51 PM ENDOSCOPY RN EXAMINATION: XR ABD KUB HISTORY: Postop evaluation, lithotripsy DATE: 08/15/2019 10:40 AM COMPARISON: None available TECHNIQUE: Supine AP view of the abdomen FINDINGS: There is a ovoid 9 mm stone near the expected position of the left UPJ. Additional 6 mm stone in the left kidney. No obvious right-sided stones. Calcified pelvic phleboliths. Nonobstructive gas pattern. Procedure Note Roscoe Patel MD - 08/15/2019 EXAMINATION: XR ABD KUB HISTORY: Postop evaluation, lithotripsy DATE: 08/15/2019 10:40 AM COMPARISON: None available TECHNIQUE: Supine AP view of the abdomen FINDINGS: There is a ovoid 9 mm stone near the expected position of theleft UPJ. Additional 6 mm stone in the left kidney. No obviousright-sided stones. Calcified pelvic phleboliths. Nonobstructive gaspattern. IMPRESSION: 1. There is a 9 mm stone near the left UPJ. 2. Additional 6 mm left renal stone. Interpreted By: Roscoe Patel MD, 08/15/2019 3:50 PM Josefina Mcdonald MD GENERAL IMAGING F inal Result * PROTIME/INR, VENOUS (08/15/2019 9:50 AM ENDOSCOPY RN) PROTIME 11.5 9.6 - 12.2 SEC 08/15/2019 10:31 AM ENDOSCOPY RN [facility] INR 1.0 08/15/2019 10:31 AM ENDOSCOPY RN [facility] Comment: Recommended INR Therapeutic Goals: 2.0-3.0 Routine Therapy 2.5-3.5 Mechanical Prosthetic Valves (High Risk) 3.0-4.0 Acute NV (to prevent Systemic Embolism) The INR is used only for patients on stable oral anticoagulant therapy. It makes no significant contribution to the diagnosis or treatment of patients whose Protime is prolonged for other reasons. 08/15/2019 9:50 AM ENDOSCOPY RN us Josefina Mcdonald MD LABORATORY F inal Result [facility] [address] [place] [address], [place] [phone] documented in this encounter Visit Diagnoses Diagnosis Kidney stone on left side- Primary Calculus of kidney Hematuria Hematuria, unspecified Kidney stone on left side Calculus of kidney Hematuria Hematuria, unspecified documented in this encounter Additional Health Concerns Infection Onset Date Last Indicated Resolved Time COVID-19 Rule Out 07/29/2021 07/29/2021 07/30/2021 6:19 AM ENDOSCOPY RN COVID-19 Confirmed 07/29/2021 07/29/2021 12:35 AM ENDOSCOPY RN documented as of this encounter Care Teams Veneer Clipper Relationship Specialty Start Date End Date Lc Mosher MD PCP - General INTERNAL MEDICINE 06/28/18 10/16/22 Yamel Gonzalez NP [address] [place] [address] PCP - General NURSE PRACTITIONER 10/17/22 documented as of this encounter
--- OUTSIDE RECORDS SUMMARY | 2025-01-12 09:11 | XMS_ITS | Encounter Summary ---
Author Organization [facility] Healthcare Address [address] [place] [address] Care Team Providers Care Technology Strategist Name Role Phone Unknown, Notinfile Primary Care Provider Unavail able Encounter Details Date Type Department Care Team (Late st Contact Info) Description 12/23/2024 Telephone [facility] Medical Group Cardiology [address] [facility] [address] [place] [address] Keesha Robertson NP [address] [place] [address] Social History Tobacco Use Types Packs/Day Years Used Date Smoking Tobacco: Never Smokeless Tobacco: Never Alcohol Use Standard Drinks/Week Comments Never 0 (1 standard drink = 0.6 oz pur e alcohol) Sex and Gender Information Value Date Recorded Sex Assigned at Not on file Legal Sex Male 3:00 AM WINDOWS SOFTWARE DEVELOPER Gender Identity Male 03/13/2021 12:39 AM CDT [...] on filedocumented in this encounter Care Teams Technology Strategist Relationship Specialty Start Date End Date Unknown, Notinfile PCP - General 04/06/23 documented as of this encounter
--- OUTSIDE RECORDS SUMMARY | 2025-01-12 09:11 | XMS_ITS | Referral Summary ---
Author Organization [facility] [address] Address [address] [place] [address] Care Team Providers Care Freight Adjuster Name Role Phone Unknown, Notinfile Primary Care Provider Unavail able Encounters Date Type Department Care Team Description 12/23/2024 Telephone [facility] Medical [facility] Cardiology [address] [place] [address] Keesha Robertson NP 12/14/2024 Telephone [facility] Cardiology [address] [place] [address] Keesha Robertson NP from Last [...] tabletIndications :Pure hypercholesterole gelacio,Coronary artery disease involving [place] coronary artery of [place] heart without angina pectoris Take 1 tablet (80 mg total) by mouth daily 90 tablet 3 4 Active ticagrelor (Brilinta) 60 mg tabletIndications :Coronary artery disease involving [place] coronary artery of [place] heart without angina pectoris Take 1 tablet (60 mg total) by mouth 2 (two) times a day 180 tablet 3 4 Active carvediloL (COREG) 6.25 mg tabletIndications :Coronary artery disease involving [place] coronary artery of [place] heart without angina pectoris,Essentia l hypertension Take 1 tablet (6.25 mg total) by mouth 2 (two) times a day with meals 180 tablet 3 4 Active ezetimibe (ZETIA) 10 mg tabletIndications :Pure hypercholesterole gelacio,Coronary artery disease involving [place] coronary artery of [place] heart without angina pectoris Take 1 tablet [...] erectile dysfunction Coronary artery disease invo lving [place] coronary artery of [place] heart without angina pectoris 12/12/2014 Overview (10/18/2016): [...] on file Legal Sex Male 3:00 AM OVEREDGER Gender Identity Male 03/13/2021 12:39 AM CDT [...] Plan of Treatment Not on file Insurance [facility] ACCESS JO ACCESS Care Teams Freight Adjuster Relationship Specialty Start Date End Date Unknown, Notinfile PCP - General 04/06/23
--- OUTSIDE RECORDS SUMMARY | 2025-01-12 09:11 | XMS_ITS | Clinical Summary ---
Author Organization [facility] [address] Address [address] [place] [address] Care Team Providers Care Gold Stamper Name Role Phone Unknown, Notinfile Primary Care [...] tabletIndications :Pure hypercholesterole gelacio,Coronary artery disease involving [place] coronary artery of [place] heart without angina pectoris Take 1 tablet (80 mg total) by mouth daily 90 tablet 3 4 Active ticagrelor (Brilinta) 60 mg tabletIndications :Coronary artery disease involving [place] coronary artery of [place] heart without angina pectoris Take 1 tablet (60 mg total) by mouth 2 (two) times a day 180 tablet 3 4 Active carvediloL (COREG) 6.25 mg tabletIndications :Coronary artery disease involving [place] coronary artery of [place] heart without angina pectoris,Essentia l hypertension Take 1 tablet (6.25 mg total) by mouth 2 (two) times a day with meals 180 tablet 3 4 Active ezetimibe (ZETIA) 10 mg tabletIndications :Pure hypercholesterole gelacio,Coronary artery disease involving [place] coronary artery of [place] heart without angina pectoris Take 1 tablet [...] erectile dysfunction Coronary artery disease invo lving [place] coronary artery of [place] heart without angina pectoris 12/12/2014 Overview (10/18/2016): [...] Type Department Care Team Description 12/23/2024 Telephone [facility] Medical Group Cardiology [address] [place] [phone] Keesha Robertson NP 12/14/2024 Telephone [facility] Medical Group Cardiology [address] [facility] [address] [place] [address] Keesha Robertson NP from Last [...] on file Legal Sex Male 3:00 AM FORGE TENDER Gender Identity Male 03/13/2021 12:39 AM CDT [...] patient's age to complete this topic Insurance [place] Care Teams Gold Stamper Relationship Specialty Start Date End Date Unknown, Notinfile PCP - General 04/06/23
--- OUTSIDE RECORDS SUMMARY | 2025-01-12 09:11 | XMS_ITS | Clinical Summary ---
Author Organization [facility] Address [address] [place] [address] Care Team Providers Care Claims Auditor Name Role Phone Unavailable Primary Care Provider Unavailabl e Social History Tobacco Use Types Packs/Day Years Used Date Smoking Tobacco: Never Assessed Sex and Gender Information Value Date Recorded Sex Assigned at Not on file Legal Sex Male 2:47 PM AUDIOLOGY DOCTOR Gender Identity Not on file Sexual Orientation [...]
[2025-01-12 09:33] LABS: Anion Gap 9 mmol/L (4-12); Blood Urea Nitrogen 20 mg/dL (9-20); Calcium 9.2 mg/dL (8.4-10.2); Carbon Dioxide 24 mmol/L (22-30); Chloride 108 mmol/L (98-107); Cholesterol 133 mg/dL (0-200); Estimated Glomerular Filt Rate > 60; Glucose 105 mg/dL (65-110); HDL Direct 42 mg/dL; Potassium 4.2 mmol/L (3.4-5.0); Sodium 141 mmol/L (137-145); Triglycerides 71 mg/dL (<150)
== END 2025-01-12 09:03 | disposition home or self-care (01) ==
LOC: ANHLAB 09:07
PROVIDERS: Visit Provider Nurse Practitioner Adult Health
DX: I25.10 Atherosclerotic heart disease of native coronary artery without angina pectoris (principal); I10 Essential (primary) hypertension; E78.00 Pure hypercholesterolemia, unspecified; I25.2 Old myocardial infarction
CPT/HCPCS: 36415; 80048; 80061

== ENCOUNTER 2025-01-20 09:23 | Outpatient (CLI) | payer BC, SELFPAY ==
--- NOTE | 2025-01-20 09:30 | ECG_ITS ---
Test Date: 2025-01-20 09:35:39 Measurements Intervals [place] Rate: 61 P: 40 [place]: 168 QRS: -31 QRSD: 128 T: -22 QT: 415 QTc: 420 Interpretive Statements SINUS RHYTHM LEFTWARD AXIS LEFT VENTRICULAR HYPERTROPHY AND ST-T CHANGE ANTEROSEPTAL MYOCARDIAL INFARCTION, PROBABLY RECENT Electronically Signed On 01-20-2025 11:08:25 CDT by Anderson Newell D.O
--- OUTSIDE RECORDS SUMMARY | 2025-01-20 09:31 | XMS_ITS | Encounter Summary ---
Author Organization [facility] Healthcare Address [address] [place] [address] Care Team Providers Care Electric Mule Driver Name Role Phone Unknown, Notinfile Primary Care Provider Unavail able No, Physician Primary Care Provider [phone] Encounter Details Date Type Department Care Team (Late st Contact Info) Description 12/23/2024 Telephone [facility] Medical Group Cardiology [address] [place] [address] Keesha Robertson NP [address] [place] [address] Social History Tobacco Use Types Packs/Day Years Used Date Smoking Tobacco: Never Smokeless Tobacco: Never Alcohol Use Standard Drinks/Week Comments Never 0 (1 standard drink = 0.6 oz pur e alcohol) Sex and Gender Information Value Date Recorded Sex Assigned at Not on file Legal Sex Male 3:00 AM PLATE FITTER Gender Identity Male 03/13/2021 12:39 AM CDT [...] on filedocumented in this encounter Care Teams Electric Mule Driver Relationship Specialty Start Date End Date Unknown, Notinfile PCP - General 04/06/23 01/19/25 No, Physician PCP - General 01/20/25 documented as of this encounter
--- OUTSIDE RECORDS SUMMARY | 2025-01-20 09:31 | XMS_ITS | Clinical Summary ---
Author Organization [facility] Address [address] [place] [address] Care Team Providers Care Cell Reliner Name Role Phone Unavailable Primary Care Provider Unavailabl e Social History Tobacco Use Types Packs/Day Years Used Date Smoking Tobacco: Never Assessed Sex and Gender Information Value Date Recorded Sex Assigned at Not on file Legal Sex Male 2:47 PM NEURORADIOLOGIST Gender Identity Not on file Sexual Orientation [...]
--- OUTSIDE RECORDS SUMMARY | 2025-01-20 09:31 | XMS_ITS | Encounter Summary ---
Author Organization [facility] Address [address] [place] [id number] Care Team Providers Care Real Estate Administrator Name Role Phone Lc Mosher MD Primary Care Provider Yamel Siu NP Primary Care Provider [phone] Encounter Details Date Type Department Care Team (Late st Contact Info) Description 10/04/2021 Avinger Message Enc [facility] Family & Internal Medicine [address] [address] [facility] Provider WANDA Social History Tobacco Use Types [...] CDT Gender Identity Male 07/29/2021 3:15 PM ORGAN PIPE VOICER Sexual Orientation Straight 07/29/2021 3: 15 PM ORGAN PIPE VOICER documented as of this encounter Plan of Treatment Not on file documented as of this encounter Visit Diagnoses Not on filedocumented in this encounter Additional Health Concerns Assessment Noted Time PHQ-9 Depression Total Score: 0 08/23/19 9:05 AM ORGAN PIPE VOICER documented as of this encounter Care Teams Real Estate Administrator Relationship Specialty Start Date End Date Lc Mosher MD PCP - General INTERNAL MEDICINE 06/28/18 10/16/22 Yamel Gonzalez NP [address] [place] [address] PCP - General NURSE PRACTITIONER 10/17/22 documented as of this encounter
--- OUTSIDE RECORDS SUMMARY | 2025-01-20 09:31 | XMS_ITS | Encounter Summary ---
Author Organization [facility] Address [address] [place] [id number] Care Team Providers Care Software Performance Engineer Name Role Phone Lc Mosher MD Primary Care Provider U Yamel Liriano NP Primary Care Provider [phone] Encounter Details Date Type Department Care Team (Late st Contact Info) Description 05/15/2020 Propertybase Message Enc [facility] Family & Internal Medicine [address] [address] [facility] Provider MEDICATION CONTRA-INDICATION Social History Tobacco Use [...] CDT Gender Identity Male 07/29/2021 3:15 PM SEAM SEWER Sexual Orientation Straight 07/29/2021 3: 15 PM SEAM SEWER COVID-19 Exposure Response Date Recorded In the last month, have you been in contact with someone who was confirmed or suspected to have Coronavirus / COVID-19? No / Unsure 05/14/2020 5:31 PM SEAM SEWER documented as of this encounter Plan of Treatment Not on file documented as of this encounter Visit Diagnoses Not on filedocumented in this encounter Additional Health Concerns Infection Onset Date Last Indicated Resolved Time COVID-19 Rule Out 07/29/2021 07/29/2021 07/30/2021 6:19 AM SEAM SEWER COVID-19 Confirmed 07/29/2021 07/29/2021 12:35 AM SEAM SEWER documented as of this encounter Care Teams Software Performance Engineer Relationship Specialty Start Date End Date Lc Mosher MD PCP - General INTERNAL MEDICINE 06/28/18 10/16/22 Yamel Gonzalez NP [address] [place] [address] PCP - General NURSE PRACTITIONER 10/17/22 documented as of this encounter
--- OUTSIDE RECORDS SUMMARY | 2025-01-20 09:31 | XMS_ITS | Encounter Summary ---
Author Organization [facility] Address [facility] [place] [address] Care Team Providers Care Linecasting Machine Keyboard Operator Name Role Phone Lc Mosher MD Primary Care Provider U Yamel Liriano NP Primary Care Provider [phone] Encounter Details Date Type Department Care Team (Late st Contact Info) Description 08/09/2019 Prep for Procedure [facility]-Admission Testing [address] [place], [place] [id number] Josefina Mcdonald MD [address] [address] Social History Tobacco Use Types [...] CDT Gender Identity Male 07/29/2021 3:15 PM SEWING TECHNIQUES DEMONSTRATOR Sexual Orientation Straight 07/29/2021 3: 15 PM SEWING TECHNIQUES DEMONSTRATOR documented as of this encounter Plan of Treatment Not on file documented as of this encounter Results * XR ABD KUB (08/15/2019 10:46 AM SEWING TECHNIQUES DEMONSTRATOR) Anatomical Region Laterality Modality Abdomen Radiographic Lakeshia ging 08/15/2019 3:50 PM SEWING TECHNIQUES DEMONSTRATOR Impressions 08/15/2019 3:51 PM SEWING TECHNIQUES DEMONSTRATOR IMPRESSION: 1. There is a 9 mm stone near the left UPJ. 2. Additional 6 mm left renal stone. Interpreted By: Roscoe Patel MD, 08/15/2019 3:50 PM Narrative 08/15/2019 3:51 PM SEWING TECHNIQUES DEMONSTRATOR EXAMINATION: XR ABD KUB HISTORY: Postop evaluation, [...] Result * PROTIME/INR, VENOUS (08/15/2019 9:50 AM SEWING TECHNIQUES DEMONSTRATOR) PROTIME 11.5 9.6 - 12.2 SEC 08/15/2019 10:31 AM SEWING TECHNIQUES DEMONSTRATOR [facility] INR 1.0 08/15/2019 10:31 AM SEWING TECHNIQUES DEMONSTRATOR [facility] Comment: Recommended INR Therapeutic Goals: 2.0-3.0 Routine Therapy 2.5-3.5 Mechanical Prosthetic Valves (High Risk) 3.0-4.0 Acute GA (to prevent Systemic Embolism) The INR is used only for patients on stable oral anticoagulant therapy. It makes no significant contribution to the diagnosis or treatment of patients whose Protime is prolonged for other reasons. 08/15/2019 9:50 AM SEWING TECHNIQUES DEMONSTRATOR us Josefina Mcdonald MD LABORATORY F inal Result [facility] [address] [place] [address], [place] [phone] documented in this encounter Visit Diagnoses Diagnosis Kidney stone on left side- Primary Calculus of kidney Hematuria Hematuria, unspecified Kidney stone on left side Calculus of kidney Hematuria Hematuria, unspecified documented in this encounter Additional Health Concerns Infection Onset Date Last Indicated Resolved Time COVID-19 Rule Out 07/29/2021 07/29/2021 07/30/2021 6:19 AM SEWING TECHNIQUES DEMONSTRATOR COVID-19 Confirmed 07/29/2021 07/29/2021 12:35 AM SEWING TECHNIQUES DEMONSTRATOR documented as of this encounter Care Teams Linecasting Machine Keyboard Operator Relationship Specialty Start Date End Date Lc Mosher MD PCP - General INTERNAL MEDICINE 06/28/18 10/16/22 Yamel Gonzalez NP [address] [place] [address] PCP - General NURSE PRACTITIONER 10/17/22 documented as of this encounter
--- OUTSIDE RECORDS SUMMARY | 2025-01-20 09:31 | XMS_ITS | Clinical Summary ---
Author Organization [facility] Address [address] [place] [address] Phone Care Team Providers Care Appliance Repair Technician Name Role Phone Cecilia Gomez MD Primary Care Provider [phone] Allergies No known active allergies Medications carvedilol [...] 12/28/2015 INFLUENZA VACCINE (#1) 2025 Care Teams Appliance Repair Technician Relationship Specialty Start Date End Date Cecilia Gomez MD PCP - General Family Practice 01/16/16
--- OUTSIDE RECORDS SUMMARY | 2025-01-20 09:31 | XMS_ITS | Referral Summary ---
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; Lipid screening; Pure hypercholesterolemia; Essential hypertension 12/23/2024 Telephone [facility] Cardiology [address] [place] [phone] Keesha Robertson NP 12/14/2024 Telephone [facility] Cardiology [address] [place] [phone] Keesha Robertson NP from Last 3 [...] tabletIndications :Pure hypercholesterole gelacio,Coronary artery disease involving upper [place] coronary artery of upper [place] heart without angina pectoris Take 1 tablet (80 mg total) by mouth daily 90 tablet 3 4 Active ticagrelor (Brilinta) 60 mg tabletIndications :Coronary artery disease involving upper [place] coronary artery of [place] heart without angina pectoris Take 1 tablet (60 mg total) by mouth 2 (two) times a day 180 tablet 3 4 Active carvediloL (COREG) 6.25 mg tabletIndications :Coronary artery disease involving upper [place] coronary artery of [place] heart without angina pectoris,Essentia l hypertension Take 1 tablet (6.25 mg total) by mouth 2 (two) times a day with meals 180 tablet 3 4 Active ezetimibe (ZETIA) 10 mg tabletIndications :Pure hypercholesterole gelacio,Coronary artery disease involving upper [place] coronary artery of [place] heart without angina pectoris Take 1 tablet [...] erectile dysfunction Coronary artery disease invo lving upper [place] coronary artery of [place] heart without angina pectoris 12/12/2014 Overview (10/18/2016): Coronary atherosclerosis Old myocardial infarction 12/12/2014 Overview (10/18/2016): Old myocardial infarction Pure hypercholesterolemia 12/12/2014 Overview (10/18/2016): Hyperlipidemia Resolved Problems Problem Noted Date Diagnosed Date Resolved Date Acute pain of left knee 03/13/2021 0812/2021 Counseling procedure with explicit context 07/09/2015 03/13/2021 [...] on file 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 Gender Identity Male 03/13/2021 12:39 AM CDT Sexual Orientation Straight 03/13/2021 12 :39 AM CDT Last Filed Vital Signs Vital Sign Reading Time Taken Comments Blood Pressure 96/60 01/20/2025 8:36 AM CDT Pulse 71 01/20/2025 8:36 AM CDT Temperature - - Respiratory Rate - - Oxygen Saturation 98% 01/20/2025 8:36 AM CDT Inhaled Oxygen Concentration - - Weight 95.7 kg (211 lb) 01/20/2025 8:36 AM CDT Height 167.6 cm (5' 6) 01/20/2025 8:36 AM CDT Body Mass Index 34.06 01/20/2025 8:36 AM CDT Plan of Treatment Not on file Procedures Procedure Name Priority Date/Time Associated Diagnosis Comments POCT LIPID PANEL Routine 01/20/2025 8:40 AM CDT Lipid screening from Last 3 Months Results * POCT lipid panel (01/20/2025 8:40 AM CDT) Cholesterol, POC 144 <200 MG/DL HDL, POC 43 >=40 mg/dL Triglycerides, POC 58 <=149 mg/dL LDL Cholesterol POC 89 <=129 mg/dL Chol/HDL Ratio, POC 2.1 NONE Non-HDL Cholesterol, POC 101 NONE mg/dL Cholesterol Total, POC 144 30 - 199 mg/dL Capillary blood 01/20/2025 8 :40 AM CDT Keesha Robertson NP POINT OF CARE TEST ORDERA BLES Final Result from Last 3 Months Insurance ANTHEM ACCESS ANTHEM ACCESS Care Teams Bumboater Relationship Specialty Start Date End Date No, Physician PCP - General 01/20/25
--- OUTSIDE RECORDS SUMMARY | 2025-01-20 09:31 | XMS_ITS | Encounter Summary ---
Author Organization [facility] Address [address] [place] [address] Care Team Providers Care System Development Manager Name Role Phone No, Physician Primary Care Provider [phone] Reason for Referral * Diagnostic Imaging (Routine) - Pending Review Specialty Diagnoses / Procedures Referred By Mimi t Referred To Contact Diagnoses Coronary artery disease of [place] artery of [place] heart with stable angina pectoris Procedures NM MPI SPECT (Rest and/or Stress) Multiple Studies Keesha Robertson NP [address] [address] Phone: tel: fax: [facility] Referral ID Status Reason Start Date Expiration Date V isits Requested Visits Authorized [id number] Pending Review 01/20/2025 02/19/2026 5 5 Reason for Visit * Reason Comments Annual Exam Encounter Details Date Type Department Care Team (Late st Contact Info) Description 01/20/2025 8:30 AM CDT Office Visit [facility] Cardiology [address] [phone] Keesha Robertson NP [address] [facility] [address] [id number] Coronary artery disease of [place] artery of [place] heart with stable angina pectoris; Lipid screening; Pure hypercholesterolemia; Essential hypertension Social History Tobacco Use Types Packs/Day Years Used Date Smoking Tobacco: Never Smokeless Tobacco: Never Alcohol Use Standard Drinks/Week Comments Never 0 (1 standard drink = 0.6 oz pur e alcohol) Sex and Gender Information Value Date Recorded Sex Assigned at Not on file 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 [facility] Cardiology [address] [place] [address] Date of Visit: 01/20/2025 Patient ID: Ruben Hubbard 1965 Chief Complaint Patient presents with Annual Exam Ruben Hubbard is a 59 y.o. male who is a former patient of Dr. Pacheco with a history of coronary artery disease coming to the office for routine follow-up. History of Present Illness: Ruben Hubbard is a 59 y.o. male with history of CAD starting when he was 47 years old. Also a hyperlipidemia, HTN, CPAP. Mr. Hubbard suffered an anterior STEMI & and had PCI to LAD 03/15/13. He occluded his LAD shortly thereafter and had a FAUSTINA to the Dx and the LAD placed. He recovered well after that. He had a staged intervention to his Cx with FAUSTINA x1 on 04/07/13. Developed chest tightness again and had a FAUSTINA to mRCA 03/2018 (Dr. Walker). Previously followed by Dr. Henning, Dr. Nieto, and Dr. Pacheco. 03/13/[address] Pacheco: Doing well. SBP at home 133-140 mmHg. No exertional CP or CHAHAL. Heavy breathing after two flights of steps. Uses CPAP. Lost 8#. Trying to fast for 16 hours/day. No trouble w/ meds, no bleeding. Active at work, no regular exercise. Mows the lawn w/ push mower and no pr oblems. 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 Trying diclofenac cream. Does use Cialis/Adcirca for ED; aware of interaction between this and TNG. His TNG is old, not used. Increase losartan to 50 mg daily. 03/05/[address] Pacheco: Doing well, no heart problems, angina, SOB. Still w/ left knee pain, takes Tylenol, Voltaren cream didn't help. Lost 5#. Watches 2 [email or web address] sometimes. Had COVID in July, mild case. Has questions re: getting a colonoscopy. Julia works, but gives him a H/A which lasts for 2 days. POC lipids reviewed 04/06/2023 OV with CHAIRMAN EMERITUS Sujit Ailyn: He is here for annual follow-up and has no complaints or concerns. He denies any changes in his health. He is had no significant chest pains. 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 Over the past 2 months he estimates he is missed his medication about 5 times. 03/01/2024 ov with CHAIRMAN EMERITUS C Ailyn: He is here for routine follow-up. He has no cardiac concerns. He denies any episodes of chest pain. Just started a new job where he will be walking around more. He had an episode of nosebleed a few months ago required cauterization with ENT, now resolved. 01/20/2025 office visit with CHAIRMAN EMERITUS: He is here for routine follow-up. He has been more active over thelast year due to a job change that requires more physical activity, resulting in weight loss. He isscheduled for ureteroscopy and lithotripsy next week and he began holding antiplatelets 2 days ago.Over the past few months he has noticed increasing episodes of pressure on the left side of the chest. However it is not daily. He tends to notice it more in the evening before he goes to work. It does remind him of the chest pressure he felt in 2018 before his RCA stenting. 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 Medical History: Past Medical History: Diagnosis Date Heart disease 03/14/2013 HX OTHER MEDICAL NOAH, HLD, CAD s/p PCI to Dx/LAD/Cx Kidney stone 1999 and 2019 Sleep apnea 03/15/2013 Past Surgical History: Procedure Laterality Date CARDIAC CATHETERIZATION CORONARY ANGIOPLASTY LITHOTRIPSY 08/2019 Social History Tobacco Use Smoking Status Never Smokeless Tobacco Never Social History Tobacco Use Smoking status: Never Smokeless tobacco: Never Substance and Sexual Activity Drug use: Never Sexual activity: Yes Partners: Female control/protection: None Alcohol Use: Not At Risk (06/28/2018) Received from [facility] AUDIT-C Frequency of Alcohol Consumption: Never Average Number of Drinks: Not on file Frequency of Binge Drinking: Not on file Family History Problem Relation Age of Onset Heart attack Father Several MIs, starting age 37, at 52 y.o. Coronary artery disease Father Coronary Artery Disease; Cause of : Coronary Artery Disease Coronary artery disease Mother Coronary Artery Disease; CABG Coronary artery disease Brother Coronary Artery Disease; Cancer Maternal Grandmother Review of Systems Constitutional: Positive for malaise/fatigue. Negative for weight gain and weight loss. Cardiovascular: Positive for chest pain. Negative for claudication, dyspnea on exertion, leg swelling, near-syncope, orthopnea, palpitations, paroxysmal nocturnal dyspnea and syncope. Respiratory: Negative for cough and sleep disturbances due to breathing. Hematologic/Lymphatic: Negative for bleeding problem. Does not bruise/bleed easily. Neurological: Negative for dizziness and light-headedness. Vital Signs: BP 96/60 (BP Location: Right arm, Patient Position: Sitting) Pulse 71 Ht 167.6 cm (5' 6) Wt 95.7 kg (211 lb) SpO2 98% BMI 34.06 kg/m?? Physical Exam Constitutional: General: He is not in acute distress. Appearance: He is well-developed. He is obese. HENT: Head: Normocephalic and atraumatic. Eyes: General: No scleral icterus. Conjunctiva/sclera: Conjunctivae normal. Neck: Vascular: No JVD. Trachea: No tracheal deviation. Cardiovascular: Rate and Rhythm: Normal rate and regular rhythm. Heart sounds: Normal heart sounds. No murmur heard. Pulmonary: Effort: Pulmonary effort is normal. No respiratory distress. Breath sounds: Normal breath sounds. Skin: General: Skin is warm and dry. Neurological: Mental Status: He is alert and oriented to person, place, and time. Psychiatric: Mood and Affect: Mood normal. Behavior: Behavior normal. Allergies Allergen Reactions Lisinopril Cough Current Outpatient Medications: atorvastatin (LIPITOR) 80 mg tablet, Take 1 tablet (80 mg total) by mouth daily, Disp: 90 tablet, Rfl: 3 carvediloL (COREG) 6.25 mg tablet, Take 1 tablet (6.25 mg total) by mouth 2 (two) times a day with meals, Disp: 180 tablet, Rfl: 3 cholecalciferol (VITAMIN D-3) 5,000 unit tablet, Take 1 tablet (5,000 Units total) by mouth daily, Disp: , Rfl: ezetimibe (ZETIA) 10 mg tablet, Take 1 tablet (10 mg total) by mouth daily, Disp: 90 tablet, Rfl: 3 losartan (COZAAR) 50 mg tablet, Take 1 tablet (50 mg total) by mouth daily, Disp: 90 tablet, Rfl: 3 tadalafiL (CIALIS) 20 mg tablet, TAKE 1 TABLET DAILY NEEDED FOR ERECTILE DYSFUNCTION, Disp: 10 tablet, Rfl: 11 aspirin (ASPIRIN LOW DOSE) 81 mg tablet, take 1 tablet by oral route every day, Disp: 0, Rfl: 0 polycarbophil (FIBERCON) 625 mg tablet, Take 1 tablet (625 mg total) by mouth as needed (Patient not taking: Reported on 01/20/2025), Disp: , Rfl: ticagrelor (Brilinta) 60 mg tablet, Take 1 tablet (60 mg total) by mouth 2 (two) times a day, Disp:180 tablet, Rfl: 3 Lab Results Component Value Date BUNSER 17 08/28/2016 CREATININE 0.89 08/28/2016 CHOL 142 08/28/2016 TRIG 84 08/28/2016 LDL 86 08/28/2016 HDL 39 (L) 08/28/2016 No results found for: WBC, HGB, HCT, MCV, PLT Recent Results (from the past 4 hours) POCT lipid panel Collection Time: 01/20/25 8:40 AM Result Value Ref Range Cholesterol, POC 144 <200 MG/DL HDL, POC 43 >=40 mg/dL Triglycerides, POC 58 <=149 mg/dL LDL Cholesterol POC 89 <=129 mg/dL Chol/HDL Ratio, POC 2.1 NONE Non-HDL Cholesterol, POC 101 NONE mg/dL Cholesterol Total, POC 144 30 - 199 mg/dL Lab Results Component Value Date POCCHOL 144 01/20/2025 POCHDL 43 01/20/2025 POCTRIG 58 01/20/2025 POCLDL 89 01/20/2025 POCNONHDL 101 01/20/2025 POCCHLPL 144 01/20/2025 Assessment: Diagnoses and all orders for this visit: Coronary artery disease of [place] artery of [place] heart with stable angina pectoris - NM MPI SPECT (Rest and/or Stress) Multiple Studies; Future Lipid screening - POCT lipid panel Pure hypercholesterolemia Essential hypertension Plan/Recommendations: He is noticing increasing left-sided chest pressure which reminds him of his previous angina. It has been 7 years since his last stress test and PCI. I recommend repeat ischemic evaluation to reassess his coronary perfusion. We will perform an exercise nuclear stress test which is the same study hehad in 2018. At this point his symptoms are mild and not occurring daily, but are gradually increasing. Therefore I feel he is an acceptable candidate to move forward with his lithotripsy next week and we will plan his stress testing after he recovers from that. However I cautioned him that if his symptoms accelerate that he needs to notify me sooner. He verbalized understanding and agreed. Continue aspirin, Brilinta, atorvastatin, carvedilol and losartan. His LDL has improved and is now at goal based on his lab draw lipids he had done on 01/12/2025, theLDL is 70. Continue ezetimibe and atorvastatin. Blood pressure is controlled. Continue carvedilol and losartan. I will have routine follow-up with him in 6 months but we will adjust this if clinically indicated. 01/20/2025 Keesha Robertson, ANP-BC Nurse Practitioner with [facility] This note is dictated and transcribed using [employer] Direct Software. Car Distributor variancesmay occur. Despite proofreading, typographical errors may occur. documented in this encounter Plan of Treatment Scheduled Orders Name Type Priority Associated Diagnoses Orde r Schedule NM MPI SPECT (Rest and/or Stress) Multiple Studies Imaging Schedule Routine, Read Routine (OP Routine) Coronary artery disease of [place] artery of [place] heart with stable angina pectoris Expected: 03/23/2025 (Approximate), Expires: 01/20/2026 documented as of this encounter Procedures Procedure Name Priority Date/Time Associated Diagnosis Comments POCT LIPID PANEL Routine 01/20/2025 8:40 AM CDT Lipid screening documented in this encounter Results * POCT lipid panel (01/20/2025 8:40 [...] OF CARE TEST ORDERA BLES Final Result documented in this encounter Visit Diagnoses Diagnosis Coronary artery disease of [place] artery of [place] heart with stable angina pectoris Lipid screening Screening for lipoid disorders Pure hypercholesterolemia Essential hypertension Unspecified essential hypertension documented in this encounter Care Teams System Development Manager Relationship Specialty Start Date End Date No, Physician PCP - General 01/20/25 documented as of this encounter
--- OUTSIDE RECORDS SUMMARY | 2025-01-20 09:31 | XMS_ITS | Clinical Summary ---
Author Organization [facility] [address] Address [address] [place] [address] Care Team Providers Care Electrician Front Name Role Phone No, Physician Primary Care Provider [phone] Allergies Active Allergy Reactions Criticality Noted Date [...] tabletIndications :Pure hypercholesterole gelacio,Coronary artery disease involving eastern shoshone coronary artery of eastern shoshone heart without angina pectoris Take 1 tablet (80 mg total) by mouth daily 90 tablet 3 4 Active ticagrelor (Brilinta) 60 mg tabletIndications :Coronary artery disease involving eastern shoshone coronary artery of eastern shoshone heart without angina pectoris Take 1 tablet (60 mg total) by mouth 2 (two) times a day 180 tablet 3 4 Active carvediloL (COREG) 6.25 mg tabletIndications :Coronary artery disease involving eastern shoshone coronary artery of eastern shoshone heart without angina pectoris,Essentia l hypertension Take 1 tablet (6.25 mg total) by mouth 2 (two) times a day with meals 180 tablet 3 4 Active ezetimibe (ZETIA) 10 mg tabletIndications :Pure hypercholesterole gelacio,Coronary artery disease involving eastern shoshone coronary artery of eastern shoshone heart without angina pectoris Take 1 tablet [...] erectile dysfunction Coronary artery disease invo lving eastern shoshone coronary artery of eastern shoshone heart without angina pectoris 12/12/2014 Overview (10/18/2016): [...] Description 01/20/2025 8:30 AM CDT Office Visit [facility] Medical [facility] Cardiology [address] [place] [address] Keesha Robertson NP Coronary artery disease of eastern shoshone artery of eastern shoshone heart with stable angina pectoris; Lipid screening; Pure hypercholesterolemia; Essential hypertension 12/23/2024 Telephone [facility] Cardiology [address] [place] [address] Keesha Robertson NP 12/14/2024 Telephone [facility] Cardiology [address] [place] [address] Keesha Robertson NP from Last [...] file 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 Gender Identity Male 03/13/2021 12:39 AM CDT [...] 01/20/2025 8:36 AM CDT Plan of Treatment Health Maintenance Due Date Last Done Comments Colon Cancer Screening-Colonoscopy 1965 Depression Screening 1965 Hepatitis C Screening 1965 Prostate Cancer Screening-PSA 1965 Hepatitis B Screening 12/28/1983 Regular Well Visit/Exam 18-64 12/28/1983 Pneumococcal vaccine <65 (1 of 2 - PCV) 1984 Zoster Vaccine (1 of 2) 12/28/2015 Influenza Vaccine (#1) 2025 1, 04/18/2020, 04/22/2019, Additional history exists DTaP/Tdap/Td Vaccine (2 - Td or Tdap) 06/29/2029 06/29/2019 Procedures Procedure Name Priority Date/Time Associated Diagnosis [...] Insurance ANTHEM ACCESS ANTHEM ACCESS Care Teams Electrician Front Relationship Specialty Start Date End Date No, Physician PCP - General 01/20/25
--- OUTSIDE RECORDS SUMMARY | 2025-01-20 09:31 | XMS_ITS | Clinical Summary ---
Author Organization [facility] Address [address] [place] [address] Care Team Providers Care Trust And Estates Attorney Name Role Phone Yamel Gonzalez NP Primary Care Provider [phone] Allergies Active Allergy Reactions Criticality Noted Date [...] Problems Daughter Heart Father Heart Disease Father AR Father Colon Cancer Maternal Grandmother Heart Mother AR Mother Diabetes Sister Relation Status Comments Daughter [...] CDT Gender Identity Male 07/29/2021 3:15 PM PERFORATOR TYPIST Sexual Orientation Straight 07/29/2021 3: 15 PM PERFORATOR TYPIST Last Filed Vital Signs Vital Sign Reading Time Taken Comments Blood Pressure 120/80 08/23/2021 8:53 AM PERFORATOR TYPIST Pulse 78 08/23/2021 8:53 AM PERFORATOR TYPIST Temperature 36.6 C (97.8 F) 08/23/2021 8:53 AM PERFORATOR TYPIST Respiratory Rate 18 08/23/2021 8:53 AM PERFORATOR TYPIST Oxygen Saturation 98% 08/23/2021 8:53 AM PERFORATOR TYPIST Inhaled Oxygen Concentration - - Weight 103.1 kg (227 lb 3.2 oz) 08/23/2021 8:53 AM PERFORATOR TYPIST Height 167.6 cm (5' 6) 08/23/2021 8:53 AM PERFORATOR TYPIST Body Mass Index 36.67 08/23/2021 8:53 AM PERFORATOR TYPIST Plan of Treatment Health Maintenance Due Date [...] - 199.0 MG/DL 11/05/2017 10:55 AM T [facility] TRIGLYCERIDES 66 <150 MG/DL 11/05/2017 10:55 AM T [facility] HDL 41(H) >40.0 MG/DL 11/05/2017 10:55 AM [facility] LDL (CALCULATED) 77.8 <100 MG/L 11/06/19 18 10:55 AM T [facility] NON HDL CHOLESTEROL 91 0 - 129 MG/DL 11/05/2017 10:55 AM [facility] CHOL/HDL RATIO 3.2 0.0 - 4.5 11/05/2017 10:55 AM T [facility] VLDL CALCULATION 13 5 - 55 MG/DL 11/05/2017 10:55 AM [facility] LIPID INTERPRETATION 11/05/2017 10:55 AM T [facility] Comment: NIH CONCENSUS REPORT RECOMMENDATIONS: [...] Conversion Md [facility] Final R esult [facility] [address] [place] [address], from Last 3 Months or Most Recently Relevant to Health Maintenance Insurance [employer] Advance Directives * Full Code (Latest Code Status on File) Date Activated Date Inactivated Comments 08/15/2019 3:15 PM 08/15/2019 6:32 PM Care Teams Trust And Estates Attorney Relationship Specialty Start Date End Date Yamel Gonzalez NP [address] [place] [address] PCP - General NURSE PRACTITIONER 10/17/22
== END 2025-01-20 09:24 | disposition home or self-care (01) ==
LOC: ANHSURGERY 09:28
PROVIDERS: Visit Provider Urology
DX: I10 Essential (primary) hypertension (principal)
CPT/HCPCS: 93005

== ENCOUNTER 2025-01-21 14:03 | Inpatient (IN) | payer BC, SELFPAY ==
[2025-01-21] VITALS (26 sets, daily range): BP systolic 121–198; BP diastolic 76–130; PULSE 56–75; RESP 12–22; TEMP 36.4–36.6; O2SAT 95–100; BMI 33.7
--- NOTE | ~2025-01-21 | XR_ITS ---
XR chest 2V Ordering provider: Vasile Goldberg History: 59 years Male with . chest pain . Comparison: July 12, 2024 FINDINGS: MEDIASTINUM: The cardiac silhouette is not enlarged. LUNGS: No infiltrates, effusions or pneumothorax. OTHER: No free air under the diaphragm. Degenerative changes of the spine. IMPRESSION: No acute cardiopulmonary pathology. Reviewed, dictated and finalized at location A.
--- NOTE | 2025-01-21 14:05 | ECG_ITS ---
Test Date: 2025-01-21 14:09:06 Measurements Intervals [place] Rate: 61 P: 45 MO: 175 QRS: -16 QRSD: 126 T: -17 QT: 412 QTc: 416 Interpretive Statements SINUS RHYTHM POSSIBLE LEFT ATRIAL ENLARGEMENT [-0.1mV P-WAVE IN V1/V2] LEFT VENTRICULAR HYPERTROPHY AND ST-T CHANGE [VOLTAGE CRITERIA PLUS ST/T ABNORMALITY] ANTEROSEPTAL MYOCARDIAL INFARCTION , PROBABLY RECENT [40+ ms Q WAVE IN V1-V4] ABNORMAL ECG Compared to ECG 01/20/2025 09:35:39 Left-axis deviation no longer present ST (T wave) deviation still present Myocardial infarct finding still present Electronically Signed On 01-21-2025 16:02:36 CDT by José Miguel Dsouza M.D.
--- OUTSIDE RECORDS SUMMARY | 2025-01-21 14:05 | XMS_ITS | Encounter Summary ---
Author Organization 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 Sexual Orientation Straight 07/29/2021 3: 15 PM FABRICATOR ASSEMBLER METAL PRODUCTS documented as of this encounter Plan of Treatment Not on file documented as of this encounter Visit Diagnoses Not on filedocumented in this encounter Additional Health Concerns Assessment Noted Time PHQ-9 Depression Total Score: 0 08/23/19 9:05 AM FABRICATOR ASSEMBLER METAL PRODUCTS documented as of this encounter Care Teams Lithograph Operator Relationship Specialty Start Date End Date Lc Mosher MD PCP - General INTERNAL MEDICINE 06/28/18 10/16/22 Yamel Gonzalez NP [address] [place] [address] PCP - General NURSE PRACTITIONER 10/17/22 documented as of this encounter
--- OUTSIDE RECORDS SUMMARY | 2025-01-21 14:05 | XMS_ITS | Encounter Summary ---
Author Organization [facility] Healthcare Address [address] [place] [address] Care Team Providers Care Land Inspector Name Role Phone Unknown, Notinfile Primary Care Provider Unavail able No, Physician Primary Care Provider [phone] Encounter Details Date Type Department Care Team (Late st Contact Info) Description 12/23/2024 Telephone [facility] Medical Group Cardiology [address] [place] [address] Keesha Robertson NP [address] [place] [address] Social History Tobacco Use Types Packs/Day Years Used Date Smoking Tobacco: Never Smokeless Tobacco: Never Alcohol Use Standard Drinks/Week Comments Never 0 (1 standard drink = 0.6 oz pur e alcohol) Sex and Gender Information Value Date Recorded Sex Assigned at Not on file Legal Sex Male 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
--- OUTSIDE RECORDS SUMMARY | 2025-01-21 14:05 | XMS_ITS | Clinical Summary ---
Author Organization [facility] Address [address] [place] [address] Care Team Providers Care Robotic Technician Name Role Phone Yamel Gonzalez NP Primary Care Provider [phone] Allergies Active Allergy Reactions Criticality Noted Date [...] CDT Gender Identity Male 07/29/2021 3:15 PM GASTROENTEROLOGIST Sexual Orientation Straight 07/29/2021 3: 15 PM GASTROENTEROLOGIST Last Filed Vital Signs Vital Sign Reading Time Taken Comments Blood Pressure 120/80 08/23/2021 8:53 AM GASTROENTEROLOGIST Pulse 78 08/23/2021 8:53 AM GASTROENTEROLOGIST Temperature 36.6 C (97.8 F) 08/23/2021 8:53 AM GASTROENTEROLOGIST Respiratory Rate 18 08/23/2021 8:53 AM GASTROENTEROLOGIST Oxygen Saturation 98% 08/23/2021 8:53 AM GASTROENTEROLOGIST Inhaled Oxygen Concentration - - Weight 103.1 kg (227 lb 3.2 oz) 08/23/2021 8:53 AM GASTROENTEROLOGIST Height 167.6 cm (5' 6) 08/23/2021 8:53 AM GASTROENTEROLOGIST Body Mass Index 36.67 08/23/2021 8:53 AM GASTROENTEROLOGIST Plan of Treatment Health Maintenance Due Date [...] - 199.0 MG/DL 11/05/2017 10:55 AM T [facility] TRIGLYCERIDES 66 <150 MG/DL 11/05/2017 10:55 AM T [facility] HDL 41(H) >40.0 MG/DL 11/05/2017 10:55 AM [facility] LDL (CALCULATED) 77.8 <100 MG/L 11/06/19 18 10:55 AM T [facility] NON HDL CHOLESTEROL 91 0 - 129 MG/DL 11/05/2017 10:55 AM [facility] CHOL/HDL RATIO 3.2 0.0 - 4.5 11/05/2017 10:55 AM T [facility] VLDL CALCULATION 13 5 - 55 MG/DL 11/05/2017 10:55 AM [facility] LIPID INTERPRETATION 11/05/2017 10:55 AM T [facility] Comment: NIH CONCENSUS REPORT RECOMMENDATIONS: [...] Conversion Md [facility] Final R esult [facility] [address] [place] [address], from Last 3 Months or Most Recently Relevant to Health Maintenance Insurance AET[employer] Advance Directives * Full Code (Latest Code Status on File) Date Activated Date Inactivated Comments 08/15/2019 3:15 PM 08/15/2019 6:32 PM Care Teams Robotic Technician Relationship Specialty Start Date End Date Yamel Gonzalez NP [address] [place] [address] PCP - General NURSE PRACTITIONER 10/17/22
--- OUTSIDE RECORDS SUMMARY | 2025-01-21 14:05 | XMS_ITS | Encounter Summary ---
Author Organization [facility] Address [facility] [place] [address] Care Team Providers Care Field Service Supervisor Name Role Phone Lc Mosher MD Primary Care Provider U Yamel Liriano NP Primary Care Provider [phone] Encounter Details Date Type Department Care Team (Late st Contact Info) Description 08/09/2019 Prep for Procedure [facility] Testing [address] [place], [place] [id number] Josefina Mcdonald MD [address] [address] Social History Tobacco Use Types [...] CDT Gender Identity Male 07/29/2021 3:15 PM SENIOR ETL DEVELOPER Sexual Orientation Straight 07/29/2021 3: 15 PM SENIOR ETL DEVELOPER documented as of this encounter Plan of Treatment Not on file documented as of this encounter Results * XR ABD KUB (08/15/2019 10:46 AM SENIOR ETL DEVELOPER) Anatomical Region Laterality Modality Abdomen Radiographic Lakeshia ging 08/15/2019 3:50 PM SENIOR ETL DEVELOPER Impressions 08/15/2019 3:51 PM SENIOR ETL DEVELOPER IMPRESSION: 1. There is a 9 mm stone near the left UPJ. 2. Additional 6 mm left renal stone. Interpreted By: Roscoe Patel MD, 08/15/2019 3:50 PM Narrative 08/15/2019 3:51 PM SENIOR ETL DEVELOPER EXAMINATION: XR ABD KUB HISTORY: Postop evaluation, [...] Result * PROTIME/INR, VENOUS (08/15/2019 9:50 AM SENIOR ETL DEVELOPER) PROTIME 11.5 9.6 - 12.2 SEC 08/15/2019 10:31 [address] SENIOR ETL DEVELOPER [facility] INR 1.0 08/15/2019 10:31 [address]IOR ETL DEVELOPER [facility] Comment: Recommended INR Therapeutic Goals: 2.0-3.0 Routine Therapy 2.5-3.5 Mechanical Prosthetic Valves (High Risk) 3.0-4.0 Acute LA (to prevent Systemic Embolism) The INR is used only for patients on stable oral anticoagulant therapy. It makes no significant contribution to the diagnosis or treatment of patients whose Protime is prolonged for other reasons. 08/15/2019 9:50 AM SENIOR ETL DEVELOPER us Josefina Mcdonald MD LABORATORY F inal Result [facility] [address] [place] [address], [place] [phone] documented in this encounter Visit Diagnoses Diagnosis Kidney stone on left side- Primary Calculus of kidney Hematuria Hematuria, unspecified Kidney stone on left side Calculus of kidney Hematuria Hematuria, unspecified documented in this encounter Additional Health Concerns Infection Onset Date Last Indicated Resolved Time COVID-19 Rule Out 07/29/2021 07/29/2021 07/30/2021 6:19 AM SENIOR ETL DEVELOPER COVID-19 Confirmed 07/29/2021 07/29/2021 12:35 AM SENIOR ETL DEVELOPER documented as of this encounter Care Teams Field Service Supervisor Relationship Specialty Start Date End Date Lc Mosher MD PCP - General INTERNAL MEDICINE 06/28/18 10/16/22 Yamel Gonzalez NP [address] [place] [address] PCP - General NURSE PRACTITIONER 10/17/22 documented as of this encounter
--- OUTSIDE RECORDS SUMMARY | 2025-01-21 14:05 | XMS_ITS | Clinical Summary ---
Author Organization [facility] Address [address] [place] [address] Care Team Providers Care Technical Adjuster Name Role Phone Unavailable Primary Care Provider Unavailabl e Social History Tobacco Use Types Packs/Day Years Used Date Smoking Tobacco: Never Assessed Sex and Gender Information Value Date Recorded Sex Assigned at Not on file Legal Sex Male 2:47 PM PHOTOGRAPHIC INTELLIGENCE OFFICER Gender Identity Not on file Sexual Orientation [...]
--- OUTSIDE RECORDS SUMMARY | 2025-01-21 14:05 | XMS_ITS | Clinical Summary ---
Author Organization [facility] [address] Address [address] [place] [address] Care Team Providers Care Printing Machine Operator Tape Rules Name Role Phone No, Physician Primary Care Provider [phone] Allergies Active Allergy Reactions Criticality Noted Date [...] tabletIndications :Pure hypercholesterole gelacio,Coronary artery disease involving shinnecock coronary artery of shinnecock heart without angina pectoris Take 1 tablet (80 mg total) by mouth daily 90 tablet 3 4 Active ticagrelor (Brilinta) 60 mg tabletIndications :Coronary artery disease involving shinnecock coronary artery of shinnecock heart without angina pectoris Take 1 tablet (60 mg total) by mouth 2 (two) times a day 180 tablet 3 4 Active carvediloL (COREG) 6.25 mg tabletIndications :Coronary artery disease involving sh[place]cock coronary artery of shinnecock heart without angina pectoris,Essentia l hypertension Take 1 tablet (6.25 mg total) by mouth 2 (two) times a day with meals 180 tablet 3 4 Active ezetimibe (ZETIA) 10 mg tabletIndications :Pure hypercholesterole gelacio,Coronary artery disease involving shinnecock coronary artery of shinnecock heart without angina pectoris Take 1 tablet [...] erectile dysfunction Coronary artery disease invo lving shinnecock coronary artery of shinnecock heart without angina pectoris 12/12/2014 Overview (10/18/2016): [...] Description 01/20/2025 8:30 AM CDT Office Visit 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 Cardiology [address] [place] [address] Keesha Robertson NP 12/14/[address] 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
--- OUTSIDE RECORDS SUMMARY | 2025-01-21 14:05 | XMS_ITS | Clinical Summary ---
Author Organization [facility] Address [address] [place] [address] Phone Care Team Providers Care Marine Plumber Name Role Phone Cecilia Gomez MD Primary Care Provider [phone] Allergies No known active allergies Medications carvedilol [...] 12/28/2015 INFLUENZA VACCINE (#1) 2025 Care Teams Marine Plumber Relationship Specialty Start Date End Date Cecilia Gomez MD PCP - General Family Practice 01/16/16
--- OUTSIDE RECORDS SUMMARY | 2025-01-21 14:05 | XMS_ITS | Encounter Summary ---
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 Procedures NM MPI SPECT (Rest and/or Stress) Multiple Studies Keesha Robertson NP [address] [facility] [address] [address] Phone: tel: fax: [facility] Referral ID Status Reason Start Date Expiration Date V isits Requested Visits Authorized [id number] Pending Review 01/20/2025 02/19/2026 5 5 Reason for Visit * Reason Comments Annual Exam Encounter Details Date Type Department Care Team (Late st Contact Info) Description 01/20/2025 8:30 AM CDT Office Visit [facility] Cardiology [address] [address] Keesha Robertson NP [address] [facility] [address] [id number] 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; Lipid screening; Pure hypercholesterolemia; Essential hypertension Social History Tobacco Use Types Packs/Day Years Used Date Smoking Tobacco: Never Smokeless Tobacco: Never Alcohol Use Standard Drinks/Week Comments Never 0 (1 standard drink = 0.6 oz pur e alcohol) Sex and Gender Information Value Date Recorded Sex Assigned at Not on file Legal Sex Male 3:00 AM OUTREACH LIAISON Gender Identity Male 03/13/2021 12:39 AM CDT [...] Group Cardiology [address] [place] [address] Date of Visit: 01/20/2025 Patient ID: Ruben [...] Developed chest tightness again and had a FASUTINA to mRCA 03/2018 (Dr. Walker). Previously followed [...] leg from knee which is positional, finger fur designer weaker on right, less bendable on the left. Trying diclofenac cream. Does use Cialis/Adcirca for ED; aware of interaction between this and TNG. His TNG is old, not used. Increase losartan to 50 mg daily. 03/05/[address] Pacheco: Doing well, no heart problems, angina, SOB. Still w/ left knee pain, takes Tylenol, Voltaren cream didn't help. Lost 5#. Watches 2 WAYN sometimes. Had COVID in July, mild case. Has questions re: getting a colonoscopy. Julia works, but gives him a H/A which lasts for 2 days. POC lipids reviewed 04/06/2023 OV with SALES CONSULTING DIRECTOR uSjit Ailyn: He is here for annual follow-up and has no complaints or concerns. He denies any changes in his health. He is had no significant chest pains. 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 Over the past 2 months he estimates he is missed his medication about 5 times. 03/01/2024 ov with SALES CONSULTING DIRECTOR C Ailyn: He is here for routine follow-up. He has no cardiac concerns. He denies any episodes of chest pain. Just started a new job where he will be walking around more. He had an episode of nosebleed a few months ago required cauterization with ENT, now resolved. 01/20/2025 office visit with SALES CONSULTING DIRECTOR: He is here for routine follow-up. 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 01/20/2025 Keesha Roebrtson, ANP-BC Nurse Practitioner with [facility] This note is dictated and transcribed using [employer] Direct Software. Mathematician Research variancesmay occur. Despite proofreading, typographical errors may occur. documented in this encounter Plan of Treatment Scheduled Orders Name Type Priority Associated Diagnoses Orde r Schedule NM MPI SPECT (Rest and/or Stress) Multiple Studies Imaging Schedule Routine, Read Routine (OP Routine) 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 Expected: 03/23/2025 [...] Visit Diagnoses Diagnosis 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 Lipid screening Screening for lipoid disorders Pure hypercholesterolemia Essential hypertension Unspecified essential hypertension documented in this encounter Care Teams Weaver Needle Loom Relationship Specialty Start Date End Date No, Physician PCP - General 01/20/25 documented as of this encounter
--- OUTSIDE RECORDS SUMMARY | 2025-01-21 14:05 | XMS_ITS | Referral Summary ---
Author Organization [facility] [place] [address] [place] [address] [place] [phone] Care Team Providers Care Board Certified Arts Therapist Name Role Phone No, Physician Primary Care Provider [phone] Encounters Date Type Department Care Team Description 01/20/2025 8:30 AM CDT Office Visit [facility] Cardiology [address] [place] [address] [place] [phone] Keesha Robertson NP Coronary artery disease of [place] artery of [place] heart with stable angina pectoris; Lipid screening; Pure hypercholesterolemia; Essential hypertension 12/23/2024 Telephone [facility] Cardiology [address] [place] [phone] Keesha Robertson NP 12/14/2024 Telephone [facility] Cardiology [address] [place] [phone] Keesha Robertson NP from Last 3 [...] tabletIndications :Pure hypercholesterole gelacio,Coronary artery disease involving [place] coronary artery of [place] heart without angina pectoris Take 1 tablet (80 mg total) by mouth daily 90 tablet 3 4 Active ticagrelor (Brilinta) 60 mg tabletIndications :Coronary artery disease involving [place] coronary artery of [place] heart without angina pectoris Take 1 tablet (60 mg total) by mouth 2 (two) times a day 180 tablet 3 4 Active carvediloL (COREG) 6.25 mg tabletIndications :Coronary artery disease involving [place] coronary artery of [place] heart without angina pectoris,Essentia l hypertension Take 1 tablet (6.25 mg total) by mouth 2 (two) times a day with meals 180 tablet 3 4 Active ezetimibe (ZETIA) 10 mg tabletIndications :Pure hypercholesterole gelacio,Coronary artery disease involving [place] coronary artery of [place] heart without angina pectoris Take 1 tablet [...] erectile dysfunction Coronary artery disease invo lving [place] coronary artery of [place] heart without angina pectoris 12/12/2014 Overview (10/18/2016): [...] on file 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 Gender Identity Male 03/13/2021 12:39 AM CDT [...] from Last 3 Months Insurance ANTHEM ACCESS Member Subscriber Plan / Payer (Ef fective 2024-Present) Name:Ruben Hubbard Relation to Subscriber:Self Name:Rbuen Hubbard Payer ID:[id number] (NAIC) Type:Rapid Pathogen Screening Address: [address] [place] [address] ANTHEM ACCESS Member Subscriber Plan / Payer (Ef fective 2024-Present) Name:Ruben Hubbard Relation to Subscriber:Self Name:Ruben Hubbard Payer ID:[id number] (NAIC) Type:Rapid Pathogen Screening Address: [id number] [place] [address] Care Teams Board Certified Arts Therapist Relationship Specialty Start Date End Date No, Physician PCP - General 01/20/25
--- OUTSIDE RECORDS SUMMARY | 2025-01-21 14:05 | XMS_ITS | Encounter Summary ---
Author Organization [facility] Address [address] [place] [id number] Care Team Providers Care Cyber Systems Engineer Name Role Phone Lc Mosher MD Primary Care Provider U Yamel Liriano NP Primary Care Provider [phone] Encounter Details Date Type Department Care Team (Late st Contact Info) Description 05/15/2020 Flight[employer]aster Message Enc [facility] Family & Internal Medicine [address] [phone] [facility] Provider MEDICATION CONTRA-INDICATION Social History Tobacco Use [...] CDT Gender Identity Male 07/29/2021 3:15 PM ASSET PROTECTION AGENT Sexual Orientation Straight 07/29/2021 3: 15 PM ASSET PROTECTION AGENT COVID-19 Exposure Response Date Recorded In the last month, have you been in contact with someone who was confirmed or suspected to have Coronavirus / COVID-19? No / Unsure 05/14/2020 5:31 PM ASSET PROTECTION AGENT documented as of this encounter Plan of Treatment Not on file documented as of this encounter Visit Diagnoses Not on filedocumented in this encounter Additional Health Concerns Infection Onset Date Last Indicated Resolved Time COVID-19 Rule Out 07/29/2021 07/29/2021 07/30/2021 6:19 AM ASSET PROTECTION AGENT COVID-19 Confirmed 07/29/2021 07/29/2021 12:35 AM ASSET PROTECTION AGENT documented as of this encounter Care Teams Cyber Systems Engineer Relationship Specialty Start Date End Date Lc Mosher MD PCP - General INTERNAL MEDICINE 06/28/18 10/16/22 Yamel Gonzalez NP [address] [place] [id number] PCP - General NURSE PRACTITIONER 10/17/22 documented as of this encounter
[2025-01-21] MEDS: NITROGLYCERIN SL 0.4 MG TABLET SUBLINGUAL (14:19)
[2025-01-21 14:20] LABS: Hematocrit 45.4 % (42.0-52.0); Hemoglobin 15.0 g/dL (14.0-18.0); Immature Granulocyte Percent A 0.2 % (0-0.5); Lymphocytes Absolute Auto 2.87 K/mm3 (0.9-3.2); Mean Corpuscular HGB Conc 33.0 g/dl (32-36); Mean Corpuscular Hemoglobin 30.9 pg (26-34); Mean Corpuscular Volume 93.4 fl (80-100); Nucleated Red Blood Cells Absolute Auto 0.000 K/mm3 (0.0-0.012); Nucleated Red Blood Cells Perc 0.0 % (0.0-0.2); Platelet Count Result 248 k/mm3 (150-375); Red Blood Count 4.86 M/mm3 (4.6-6.20); White Blood Count 8.4 K/mm3 (4.5-10.0)
--- NOTE | 2025-01-21 14:21 | ECG_ITS ---
Test Date: 2025-01-21 14:23:33 Measurements Intervals [place] Rate: 73 P: 42 OR: 165 QRS: -33 QRSD: 134 T: -29 QT: 403 QTc: 445 Interpretive Statements SINUS RHYTHM POSSIBLE LEFT ATRIAL ENLARGEMENT [-0.1mV P-WAVE IN V1/V2] LEFT AXIS DEVIATION [QRS AXIS < -30] INTRAVENTRICULAR CONDUCTION DELAY [130+ ms QRS DURATION] POSSIBLE LEFT VENTRICULAR HYPERTROPHY [VOLTAGE CRITERIA PLUS LAE OR QRS WIDENING] ANTEROSEPTAL MYOCARDIAL INFARCTION , PROBABLY RECENT [40+ ms Q WAVE IN V1-V4] ABNORMAL ECG Compared to ECG 01/21/2025 14:09:06 Left-axis deviation now present Intraventricular conduction delay now present Myocardial infarct finding still present Electronically Signed On 01-21-2025 16:06:58 CDT by José Miguel Dsouza M.D.
--- NOTE | 2025-01-21 14:21 | PC.NURSE ---
Per Dr. Gonzalez verbal order, pt. placed on 2L NC.
[2025-01-21 14:32] LABS: INR 1.0; Prothrombin Time 12.9 Seconds (11.1-14.7)
[2025-01-21] MEDS: ASPIRIN 81 MG CHEWABLE TABLET 324 MG PO (14:32)
[2025-01-21 14:33] LABS: Partial Thromboplastin Time 24.4 Seconds (22.3-36.8)
--- NOTE | 2025-01-21 14:38 | ED_ITS ---
HPI - General Adult General Chief complaint: Chest Pain Stated complaint: chest pain Time Seen by Provider: 01/21/25 14:06 History of Present Illness HPI narrative: This is a 59-year-old male with history coronary artery disease with stents placed in 2012 and 1017 presenting for chest pain. Patient was doing lawn work when he developed pressure in his chest. 1 hour later it turned into pain that was radiating into his jaw and shoulders. He was not associated diaphoresis or vomiting. Patient says this feels similar to a when he had previous MIs. Related Data Home Medications ?Medication ?Instructions ?Recorded ?Confirmed ?Last Taken ?Type aspirin 81 mg tablet,delayed 81 mg PO DAILY 07/22/19 01/19/25 Unknown History release (Adult Aspirin Regimen) atorvastatin 80 mg tablet (Lipitor) 80 mg PO HS 07/22/19 01/19/25 Unknown History carvedilol 6.25 mg tablet 6.25 mg PO Q12H 07/22/19 01/19/25 Unknown History ezetimibe 10 mg tablet 10 mg PO HS 07/22/19 01/19/25 Unknown History tadalafil 20 mg tablet 20 mg PO DAILY PRN sexual activity 08/30/19 01/19/25 Unknown History ticagrelor 60 mg tablet (Brilinta) 60 mg PO Q12H 08/30/19 01/19/25 Unknown History losartan 50 mg tablet 50 mg PO DAILY 08/18/21 01/19/25 Unknown History Allergies Allergy/AdvReac Type Severity Reaction Status Date / Time lisinopril Allergy Unknown Verified 01/19/25 14:05 [facility] Past Medical History Medical History (Updated 01/21/25 @ 18:06 by Wilfredo Gonzalez MD) Calculus of ureter Coronary artery disease involving [place] heart with angina pectoris Essential hypertension Surgical History Surgical History History of heart artery stent Family History Family History Sibling Family history of obesity Family history of coronary artery disease Family history of diabetes mellitus in first degree relative Mother Patient's mother is Family history of heart disease in male family member before age 55 Father Acute myocardial infarction, Onset Age: 52 Family history of coronary artery disease, Onset Age: 52 Family history of heart disease in male family member before age 55 Grandparent Carcinoma of colon Social History Social History Smoking status: Never smoker Second hand tobacco smoke exposure: No Alcohol intake: never Living arrangements: with family Gender identity (if verbalized by the patient): Male Exam 2 Narrative: APPEARANCE: No apparent distress. Head: atraumatic. EYES: EOMI, NOSE: Atraumatic NECK: Trachea midline RESPIRATORY: No increased rate of breathing clear to auscultation CARDIOVASCULAR: RRR, no peripheral edema ABDOMINAL: Non-distended soft nontender MUSCULOSKELETAl: No obvious deformities NEURO: Alert. Moving 4/4 extremities SKIN:: Warm, dry. Normal color PSYCHIATRIC: Normal affect Course Vital Signs Vital signs: Vital Signs Temperature 97.6 F 01/21/25 14:07 Pulse Rate 71 01/21/25 14:07 Respiratory Rate 19 01/21/25 14:07 Blood Pressure 172/122 H 01/21/25 14:07 Pulse Oximetry 100 01/21/25 14:07 Oxygen Delivery Room Air 01/21/25 14:07 Temperature 97.6 F 01/21/25 14:07 Pulse Rate 60 01/21/25 16:46 Respiratory Rate 17 01/21/25 16:46 Blood Pressure 141/92 H 01/21/25 16:46 Pulse Oximetry 99 01/21/25 16:46 Oxygen Delivery Nasal Cannula 01/21/25 14:36 Oxygen Flow Rate 2 01/21/25 14:36 Medical Decision Making [facility] Narrative Medical decision making narrative: -Course: 59-year-old male history of coronary artery disease presenting chest pain radiating to his jaw and arm. Pain is improved with nitro. Patient given morphine and oxygen. EKG shows diffuse T-wave inversions. Previous EKGs reviewed and the T-wave inversions are unchanged. -DDX includes but is not limited to: Unstable angina, NSTEMI -Co-morbidities complicating care: Coronary disease, HTN, HL Independent EKG interpretation: Rhythm [sinus], Rate [61], [place] -[normal], IN -[normal], QRS [narrow], QTC [normal], T waves -[T-wave inversions in V1 through 6], ST Segments - [Negative for concerning elevations] Final interpretations: Normal sinus rhythm with diffuse T-wave inversions, unchanged from previous Vital Signs Vital Signs: Vital Signs Temperature 97.6 F 01/21/25 14:07 Pulse Rate 71 01/21/25 14:07 Respiratory Rate 19 01/21/25 14:07 Blood Pressure 172/122 H 01/21/25 14:07 Pulse Oximetry 100 01/21/25 14:07 Oxygen Delivery Room Air 01/21/25 14:07 Temperature 97.6 F 01/21/25 14:07 Pulse Rate 60 01/21/25 16:46 Respiratory Rate 17 01/21/25 16:46 Blood Pressure 141/92 H 01/21/25 16:46 Pulse Oximetry 99 01/21/25 16:46 Oxygen Delivery Nasal Cannula 01/21/25 14:36 Oxygen Flow Rate 2 01/21/25 14:36 Lab Data 01/21/25 14:13 01/21/25 14:13 Labs: Lab Results 01/21/25 Range/Units 14:13 WBC 8.4 (4.5-10.0) K/mm3 RBC 4.86 (4.6-6.20) M/mm3 Hgb 15.0 (14.0-18.0) g/dL Hct 45.4 (42.0-52.0) % MCV 93.4 (80-100) fl MCH 30.9 (26-34) pg MCHC 33.0 (32-36) g/dl RDW 13.0 (11.5-14.5) % Plt Count 248 (150-375) k/mm3 MPV 9.7 (7.4-10.4) fl Immature Gran % (Auto) 0.2 (0-0.5) % Neut % (Auto) 53.6 (45.5-73.1) % Lymph % (Auto) 34.0 (18.3-44.2) % [place] % (Auto) 10.9 H (2.6-8.5) % Eos % (Auto) 0.8 (0-4.4) % Baso % (Auto) 0.5 (0.2-1.2) % Lymph # (Auto) 2.87 (0.9-3.2) K/mm3 [place] # (Auto) 0.9 H (0.1-0.6) K/mm3 Eos # (Auto) 0.1 (0-0.3) K/mm3 Baso # (Auto) 0.0 (0.0-0.1) K/mm3 Abs Immat Gran (auto) 0.02 (0.00-0.031) K/mm3 Absolute Neuts (auto) 4.5 (1.3-6.7) K/mm3 Absolute Nucleated RBC 0.000 (0.0-0.012) K/mm3 Nucleated RBC % 0.0 (0.0-0.2) % PT 12.9 (11.1-14.7) Seconds INR 1.0 APTT 24.4 (22.3-36.8) Seconds Sodium 138 (137-145) mmol/L Potassium 3.8 (3.4-5.0) mmol/L Chloride 105 (98-107) mmol/L Carbon Dioxide 27 (22-30) mmol/L Anion Gap 6 (4-12) mmol/L BUN 17 (9-20) mg/dL Creatinine 0.83 (0.7-1.3) mg/dL Estim Creat Clear Calc 92 ml/min Estimated GFR > 60 (59 - ) Glucose 104 (65-110) mg/dL Calcium 9.7 (8.4-10.2) mg/dL Total Bilirubin 1.1 (0.2-1.3) mg/dL AST 32 (17-59) U/L ALT 26 (6-50) U/L Alkaline Phosphatase 54 (38-126) U/L Troponin I < 0.012 (0.000-0.034) ng/mL Total Protein 7.4 (6.3-8.2) g/dL Albumin 4.2 (3.5-5.1) g/dL Lipase 168 (23-300) U/L Critical Care Time Critical Care Time Critical Care Time: Yes Total Critical Care Time: 35 Discharge Plan Discharge Clinical Impression: Non-ST elevation IN (NSTEMI) Patient Disposition: Still a Patient Condition: Stable Patient Language: Danish Prescriptions: No Action losartan 50 mg tablet 50 mg PO DAILY ticagrelor [Brilinta] 60 mg Tablet 60 mg PO Q12H tadalafil 20 mg Tablet 20 mg PO DAILY PRN (Reason: sexual activity) aspirin [Adult Aspirin Regimen] 81 mg tablet,delayed release (DR/EC) 81 mg PO DAILY Patient Comments: carvedilol 6.25 mg tablet 6.25 mg PO Q12H ezetimibe 10 mg tablet 10 mg PO HS atorvastatin [Lipitor] 80 mg tablet 80 mg PO HS tamsulosin [Flomax] 0.4 mg capsule 0.4 mg PO DAILY Qty: 7 0RF Follow-up/Referrals: UNKNOWN,DOCTOR [Primary Care Provider] -
[2025-01-21 14:56] LABS: Alanine Aminotransferase 26 U/L (6-50); Albumin Level 4.2 g/dL (3.5-5.1); Alkaline Phosphatase 54 U/L (38-126); Anion Gap 6 mmol/L (4-12); Aspartate Amino Transferase 32 U/L (17-59); Bilirubin,Total 1.1 mg/dL (0.2-1.3); Blood Urea Nitrogen 17 mg/dL (9-20); Calcium 9.7 mg/dL (8.4-10.2); Carbon Dioxide 27 mmol/L (22-30); Chloride 105 mmol/L (98-107); Estimated CRCL calculation 92 ml/min; Estimated Glomerular Filt Rate > 60; Glucose 104 mg/dL (65-110); Lipase 168 U/L (23-300); Potassium 3.8 mmol/L (3.4-5.0); Sodium 138 mmol/L (137-145); Total Protein 7.4 g/dL (6.3-8.2)
[2025-01-21 15:08] LABS: Troponin I < 0.012 ng/mL (0.000-0.034)
--- NOTE | 2025-01-21 16:58 | ECG_ITS ---
Test Date: 2025-01-21 17:01:54 Measurements Intervals [place] Rate: 53 P: 42 MA: 180 QRS: -22 QRSD: 134 T: -49 QT: 453 QTc: 429 Interpretive Statements SINUS BRADYCARDIA POSSIBLE LEFT ATRIAL ENLARGEMENT [-0.1mV P-WAVE IN V1/V2] INTRAVENTRICULAR CONDUCTION DELAY [130+ ms QRS DURATION] POSSIBLE LEFT VENTRICULAR HYPERTROPHY [VOLTAGE CRITERIA PLUS LAE OR QRS WIDENING] ANTEROSEPTAL MYOCARDIAL INFARCTION , PROBABLY RECENT [40+ ms Q WAVE IN V1-V4] ACUTE [place] ABNORMAL ECG Electronically Signed On 01-22-2025 11:32:52 CDT by José Miguel Dsouza M.D.
[2025-01-21 17:41] LABS: Troponin I 0.040 ng/mL (0.000-0.034)
[2025-01-21] MEDS: HEPARIN SOD/D5W 100 UNITS/ML 25,000 UNITS/250 ML BAG 9 UNITS IV CONT (18:20)
[2025-01-21] MEDS: NITROGLYCERIN/D5W 200 MCG/ML 50 MG/250 ML BTL IV CONT (18:21)
[2025-01-21 18:40] LABS: INR 1.0; Prothrombin Time 13.2 Seconds (11.1-14.7)
[2025-01-21 18:41] LABS: Partial Thromboplastin Time 24.3 Seconds (22.3-36.8)
--- NOTE | 2025-01-21 19:24 | ADMGEN ---
This patient, Ruben Hubbard, was admitted to Intensive Care Unit-1. Patient/family oriented to hospital policies and general routines including ID bracelet, bed and alarms, visiting hours, pain management, procedures, bathroom and other care routines, personal items, smoking policy, room service/diet, and visiting hours. Information on how to activate the Rapid Response Team has been discussed. Patient/Family are encouraged to report perceived risks to care and to ask questions if they do not understand what they are told or what they should do.
--- NOTE | 2025-01-21 19:30 | PM.IMHP ---
H&P: HPI History of Present Illness Date/Time: 01/21/25 20:30 Chief Complaint: Chest pain. Narrative: This is a 59-year-old male with coronary artery disease with history of stents in 2012 and 2018, hypertension, hyperlipidemia, and benign prostatic hyperplasia chronic emergency department via private vehicle with complaints of chest pain. Over the last several months he has had intermittent, brief, and self-resolving episodes of chest pressure, not necessarily related to exertion. 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 Today he was doing yard work (mowing the lawn and raking) when he developed central to left-sided anterior chest pressure. Over the course of the next hours the pain intensified to and almost stabbing pain which radiated to the neck, jaw, and shoulders. These symptoms are similar to those he had with previous MIs. He denies lightheadedness, sweats, anxiety, nausea, and vomiting. Of note, he has been off of aspirin and ticagrelor for the last 3 days in anticipation of an upcoming urologic procedure to remove a kidney stone. In the ED: Vital signs on arrival include a temperature of 97.6?, blood pressure 172/122, pulse 71, respiratory 19, SpO2 100% on room air. EKG showed sinus rhythm with evidence of left ventricular hypertrophy as well as possible recent anteroseptal myocardial infarction. mc kay machine operator was consulted immediately and after reviewing previous EKGs, most of these findings appear chronic. His initial troponin was normal however 3 hour troponin did increase to 0.040. It was felt that this was not indicative of an ST-elevation myocardial infarction. He was started on a heparin drip and due to ongoing chest pressure, a nitroglycerin drip. He is being admitted in this setting for close monitoring and plans for possible cardiac catheterization tomorrow Review of Systems Review of Systems: 12 systems were reviewed and are negative except for as per HPI. [facility] Past Medical History Medical History (Updated 01/21/25 @ 20:38 by Sabrina Navas PA-C) Essential hypertension Hyperlipidemia Coronary artery disease Kidney stone Surgical History Surgical History (Updated 01/21/25 @ 20:38 by Sabrina Navas PA-C) History of lithotripsy History of coronary angioplasty with insertion of stent Family History Family History Sibling Family history of obesity Family history of coronary artery disease Family history of diabetes mellitus in first degree relative Mother Patient's mother is Family history of heart disease in male family member before age 55 Father Acute myocardial infarction, Onset Age: 52 Family history of coronary artery disease, Onset Age: 52 Family history of heart disease in male family member before age 55 Grandparent Carcinoma of colon Social History Social History (Updated 01/21/25 @ 19:32 by Sabrina Navas PA-C) Social History: Surrogate medical decision maker: Erma Hubbard, spouse. Code status: Full code. Smoking status: Never smoker Second hand tobacco smoke exposure: No Alcohol intake: never Substance use: never Do You Feel Safe in your Home?: Yes Lack of Transportation: No Lack of Food: Never True Current Housing: I Have Housing Concerned About Future Housing: No Difficulty Paying Gas/Electric Bills: No Difficulty Paying for Meds: No Currently Unemployed: No Education: Trade/Vocational Certificate Difficulty w/ Childcare or Family Care: No Spiritual care concerns: No Meds Home Medications and Allergies Home Medications ?Medication ?Instructions ?Recorded ?Confirmed ?Type aspirin 81 mg tablet,delayed 81 mg PO DAILY 07/22/19 01/21/25 History release (Adult Aspirin Regimen) atorvastatin 80 mg tablet (Lipitor) 80 mg PO HS 07/22/19 01/21/25 History carvedilol 6.25 mg tablet 6.25 mg PO Q12H 07/22/19 01/21/25 History ezetimibe 10 mg tablet 10 mg PO HS 07/22/19 01/21/25 History tadalafil 20 mg tablet 20 mg PO DAILY PRN sexual activity 08/30/19 01/21/25 History ticagrelor 60 mg tablet (Brilinta) 60 mg PO Q12H 08/30/19 01/21/25 History losartan 50 mg tablet 50 mg PO DAILY 08/18/21 01/21/25 History tamsulosin 0.4 mg capsule (Flomax) 0.4 mg PO DAILY #7 caps 12/19/24 01/21/25 Rx Allergies Allergy/AdvReac Type Severity Reaction Status Date / Time lisinopril Allergy Unknown Verified 01/19/25 14:05 Vital Signs Vital Signs - 24 hr 01/21/25 14:07 01/21/25 14:12 01/21/25 14:15 Temperature 97.6 F Pulse Rate 71 60 75 Respiratory Rate 19 22 H 13 Blood Pressure 172/122 H 177/122 H 198/130 H Pulse Oximetry 100 100 95 Oxygen Delivery Room Air Oxygen Flow Rate 01/21/25 14:30 01/21/25 14:34 01/21/25 14:34 Temperature Pulse Rate 70 75 Respiratory Rate 13 Blood Pressure 123/76 Pulse Oximetry 99 100 Oxygen Delivery Nasal Cannula Oxygen Flow Rate 2 01/21/25 14:36 01/21/25 14:45 01/21/25 15:12 Temperature Pulse Rate 71 65 Respiratory Rate 14 14 Blood Pressure 131/92 H 125/81 Pulse Oximetry 100 100 98 Oxygen Delivery Nasal Cannula Oxygen Flow Rate 2 01/21/25 15:15 01/21/25 15:30 01/21/25 15:46 Temperature Pulse Rate 62 62 62 Respiratory Rate 13 17 13 Blood Pressure 125/83 121/77 124/85 Pulse Oximetry 98 98 100 Oxygen Delivery Oxygen Flow Rate 01/21/25 16:01 01/21/25 16:16 01/21/25 16:31 Temperature Pulse Rate 61 59 L 62 Respiratory Rate 12 14 13 Blood Pressure 125/86 128/84 134/82 Pulse Oximetry 100 100 100 Oxygen Delivery Oxygen Flow Rate 01/21/25 16:46 01/21/25 17:00 01/21/25 17:30 Temperature Pulse Rate 60 62 61 Respiratory Rate 17 12 15 Blood Pressure 141/92 H 140/102 H 179/103 H Pulse Oximetry 99 100 100 Oxygen Delivery Oxygen Flow Rate 01/21/25 18:00 01/21/25 18:21 01/21/25 18:32 Temperature Pulse Rate 67 57 L 66 Respiratory Rate 15 12 Blood Pressure 174/107 H 174/107 H 158/108 H Pulse Oximetry 100 100 Oxygen Delivery Oxygen Flow Rate Exam Narrative: General: Well-developed, nontoxic-appearing male sitting up in bed in no acute distress. Weight: 97.9 kg. BMI: 33.8. HEENT: PERRL, EOMI. Sclera anicteric. Oral mucosa moist. Oropharynx clear. Neck: Supple. Respiratory: Lungs are clear to auscultation bilaterally. Cardiovascular: Regular rate and rhythm with S1-S2. Gastrointestinal: Abdomen is soft, nontender, and nondistended with positive bowel sounds. Skin: Warm and dry. No rash or lesions on limited exam. Extremities: No cyanosis, clubbing, or edema. Radial and pedal pulses intact. Neurological: Alert. Cranial nerves grossly intact. No gross focal deficits to casual conversation. Psychiatric: Pleasant and cooperative with normal mood and affect. Judgment and insight intact. H&P: Results Labs Labs: Short CBC 01/21/25 Range/Units 14:13 WBC 8.4 (4.5-10.0) K/mm3 Hgb 15.0 (14.0-18.0) g/dL Hct 45.4 (42.0-52.0) % Plt Count 248 (150-375) k/mm3 BMP 01/21/25 14:13 Sodium 138 Potassium 3.8 Chloride 105 Carbon Dioxide 27 BUN 17 Creatinine 0.83 Glucose 104 Calcium 9.7 Cardiac Enzymes 01/21/25 01/21/25 Range/Units 14:13 17:10 Troponin I < 0.012 0.040 H* D (0.000-0.034) ng/mL Liver Function 01/21/25 Range/Units 14:13 Total Bilirubin 1.1 (0.2-1.3) mg/dL AST 32 (17-59) U/L ALT 26 (6-50) U/L Alkaline Phosphatase 54 (38-126) U/L Albumin 4.2 (3.5-5.1) g/dL Imaging Chest X-Ray 01/21/25 15:05 IMPRESSION: No acute cardiopulmonary pathology. Assessment and Plan Assessment and plan (1) Non-ST elevation HI (NSTEMI): Code(s): I21.4 - Non-ST elevation (NSTEMI) myocardial infarction Status: Acute (2) Coronary artery disease: Code(s): I25.10 - Atherosclerotic heart disease of [place] coronary artery without angina pectoris Status: Acute (3) Essential hypertension: Code(s): I10 - Essential (primary) hypertension Status: Acute (4) Hyperlipidemia: Code(s): E78.5 - Hyperlipidemia, unspecified Status: Acute Plan The patient presented to the emergency department for evaluation of chest pressure radiating to the jaw and shoulders which started while mowing the lawn earlier today as detailed in HPI. Labs, imaging, EKG, and all reports were personally reviewed. EKG was grossly abnormal on arrival when interventional cardiology was consulted immediately. Upon further review, the EKG changes appear chronic and his baseline troponin was negative. Three hour troponin came back slightly elevated 0.040 and due to ongoing chest pressure, he was started on a heparin drip and nitroglycerin drip. It is my understanding that there are plans for possible cardiac catheterization tomorrow and he will be NPO after midnight. Blood pressures have fluctuated from the 120s systolic to the 190s systolic and his nitro drip has been increased to 10 mcgs/min with improvement. Continue carvedilol, losartan, and atorvastatin. The rest of his home medications will be reviewed and resumed as appropriate. Findings and treatment plan were discussed with the patient. Questions were solicited and answered to satisfaction. The patient's medical management will be taken over by the hospitalist team in a.m. Quality VTE Prophylaxis VTE prophylaxis: pharmacologic ordered (on heparin drip) Hospitalist [facility] Advance Care Plan I have confirmed that the patient's Advanced Care Plan is present, code status is documented, or surrogate decision maker is listed in patient medical record.: Yes Medication Reconciliation I have utilized all available resources to obtain, update and review the patients current medications (includes all prescriptions, OTC, herbals, cannabis, and nutritional supplements).: Yes
[2025-01-21] MEDS: EZETIMIBE 10 MG TABLET PO (20:43)
[2025-01-21] MEDS: ATORVASTATIN 40 MG TABLET 80 MG PO (20:43)
--- NOTE | 2025-01-21 20:46 | ECG_ITS ---
Test Date: 2025-01-21 20:51:46 Measurements Intervals [place] Rate: 53 P: 37 NM: 179 QRS: -31 QRSD: 130 T: -11 QT: 453 QTc: 428 Interpretive Statements SINUS BRADYCARDIA MARKED LEFT AXIS DEVIATION [QRS AXIS < -30] POSSIBLE RIGHT VENTRICULAR CONDUCTION DELAY [RSR (QR) IN V1/V2] LEFT VENTRICULAR HYPERTROPHY AND ST-T CHANGE [VOLTAGE CRITERIA PLUS ST/T ABNORMALITY] ANTEROSEPTAL MYOCARDIAL INFARCTION [40+ ms Q WAVE IN V1-V4], PROBABLY RECENT ACUTE [place] ABNORMAL ECG NO SIGNIFICANT CHANGE Electronically Signed On 01-22-2025 11:33:56 CDT by José Miguel Dsouza M.D.
[2025-01-21 21:19] LABS: Troponin I 0.236 ng/mL (0.000-0.034)
[2025-01-21 22:16] LABS: MRSA (PCR) NOT DETECTED (NOT DETECTE)
[2025-01-22] VITALS (35 sets, daily range): BP systolic 105–147; BP diastolic 67–95; PULSE 50–89; RESP 10–17; TEMP 36.7–37; O2SAT 95–100
[2025-01-22 00:44] LABS: Troponin I 0.629 ng/mL (0.000-0.034)
[2025-01-22 01:36] LABS: Partial Thromboplastin Time 47.0 Seconds (22.3-36.8)
--- NOTE | 2025-01-22 02:09 | ECG_ITS ---
Test Date: 2025-01-22 02:17:24 Measurements Intervals [place] Rate: 60 P: 49 AL: 175 QRS: -25 QRSD: 137 T: -51 QT: 451 QTc: 454 Interpretive Statements SINUS RHYTHM INTRAVENTRICULAR CONDUCTION DELAY [130+ ms QRS DURATION] LEFT VENTRICULAR HYPERTROPHY AND ST-T CHANGE [VOLTAGE CRITERIA PLUS ST/T ABNORMALITY] ANTEROSEPTAL MYOCARDIAL INFARCTION [40+ ms Q WAVE IN V1-V4], PROBABLY RECENT ACUTE [place] ABNORMAL ECG NO SIGNIFICANT CHANGE Electronically Signed On 01-22-2025 11:35:21 CDT by José Miguel Dsouza M.D.
--- NOTE | 2025-01-22 06:06 | P.CONCA_ITS ---
Assessment and Plan Assessment and plan (1) Non-ST elevation ME (NSTEMI): Code(s): I21.4 - Non-ST elevation (NSTEMI) myocardial infarction Status: Acute Assessment and Plan: Regards to NSTEMI, he has stents in 2012 and 2079. Of aspirin ticagrelor for 3 days in anticipation for kidney stone removal. He is having active chest pain despite receiving IV nitroglycerin. Risks and benefits of cardiac catheterization discussed with the patient and agrees to proceed. 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 Intermittent chest pain for several months he was doing yd work when he started to have central and left chest pain. Denies pain. Not going away. He is off his aspirin and Brilinta for the last 3 days in anticipation to remove kidney stone. Came to ER and ST segment changes anterior leads concerning for LAD disease. Was started IV nitroglycerin drip but continues to have continuous chest pain. Troponin 0.04, 0.2, 0.6. Active chest pain / Review of Systems 2 Constitutional: Constitutional: Denies chills, Denies fever(s) and Denies poor appetite Eyes: Eyes: Denies eye discharge, Denies loss of vision and Denies eye pain ENT: Denies dizziness, Denies epistaxis, Denies nasal congestion and Denies sore throat Cardiovascular: Cardiovascular: Reports chest pain, Denies syncope, Denies pedal edema, Denies leg edema, Denies palpitations, Denies dyspnea, Reports dyspnea on exertion and Denies orthopnea Respiratory: Respiratory: Denies cough, Denies dyspnea, Denies dyspnea on exertion and Denies wheezing Gastrointestinal: Gastrointestinal: Denies abdominal pain, Denies diarrhea, Denies nausea and Denies vomiting Genitourinary: Genitourinary: Denies hematuria, Denies genital lesions and Denies dysuria Musculoskeletal: Musculoskeletal: Denies arthralgias, Denies joint swelling and Denies numbness Integumentary/Breasts: Skin/Breast: Denies pruritus and Denies rash Neurologic: Denies dizziness, Denies syncope, Denies loss of vision and Denies numbness Psychiatric: Psychiatric: Denies anxiety and Denies depression Endocrine: Endocrine: Denies cold intolerance, Denies heat intolerance and Denies palpitations Hematologic/Lymphatic: Hematologic/Lymphatic: Denies easy bleeding and Denies easy bruising Allergic/Immunologic: Allergic/Immunologic: Denies urticaria and Denies wheezing PMFSH Past Medical History Medical History Essential hypertension Hyperlipidemia Coronary artery disease Kidney stone Surgical History Surgical History History of lithotripsy History of coronary angioplasty with insertion of stent Family History Family History Sibling Family history of obesity Family history of coronary artery disease Family history of diabetes mellitus in first degree relative Mother Patient's mother is Family history of heart disease in male family member before age 55 Father Acute myocardial infarction, Onset Age: 52 Family history of coronary artery disease, Onset Age: 52 Family history of heart disease in male family member before age 55 Grandparent Carcinoma of colon Social History Social History Social History: Surrogate medical decision maker: Erma Hubbard, spouse. Code status: Full code. Smoking status: Never smoker Second hand tobacco smoke exposure: No Alcohol intake: never Substance use: never Do You Feel Safe in your Home?: Yes Lack of Transportation: No Lack of Food: Never True Current Housing: I Have Housing Concerned About Future Housing: No Difficulty Paying Gas/Electric Bills: No Difficulty Paying for Meds: No Currently Unemployed: No Education: Trade/Vocational Certificate Difficulty w/ Childcare or Family Care: No Spiritual care concerns: No Meds Home Medications and Allergies Home Medications ?Medication ?Instructions ?Recorded ?Confirmed ?Type aspirin 81 mg tablet,delayed 81 mg PO DAILY 07/22/19 01/21/25 History release (Adult Aspirin Regimen) atorvastatin 80 mg tablet (Lipitor) 80 mg PO HS 07/22/19 01/21/25 History carvedilol 6.25 mg tablet 6.25 mg PO Q12H 07/22/19 01/21/25 History ezetimibe 10 mg tablet 10 mg PO HS 07/22/19 01/21/25 History tadalafil 20 mg tablet 20 mg PO DAILY PRN sexual activity 08/30/19 01/21/25 History ticagrelor 60 mg tablet (Brilinta) 60 mg PO Q12H 08/30/19 01/21/25 History losartan 50 mg tablet 50 mg PO DAILY 08/18/21 01/21/25 History tamsulosin 0.4 mg capsule (Flomax) 0.4 mg PO DAILY #7 caps 12/19/24 01/21/25 Rx Allergies Allergy/AdvReac Type Severity Reaction Status Date / Time lisinopril Allergy Unknown Verified 01/19/25 14:05 Vital Signs Vital Signs - 24 hr 01/21/25 14:07 01/21/25 14:12 01/21/25 14:15 Temperature 36.4 C Pulse Rate 71 60 75 Respiratory Rate 19 22 H 13 Blood Pressure 172/122 H 177/122 H 198/130 H Pulse Oximetry 100 100 95 Oxygen Delivery Room Air Oxygen Flow Rate 01/21/25 14:30 01/21/25 14:34 01/21/25 14:34 Temperature Pulse Rate 70 75 Respiratory Rate 13 Blood Pressure 123/76 Pulse Oximetry 99 100 Oxygen Delivery Nasal Cannula Oxygen Flow Rate 2 01/21/25 14:36 01/21/25 14:45 01/21/25 15:12 Temperature Pulse Rate 71 65 Respiratory Rate 14 14 Blood Pressure 131/92 H 125/81 Pulse Oximetry 100 100 98 Oxygen Delivery Nasal Cannula Oxygen Flow Rate 2 01/21/25 15:15 01/21/25 15:30 01/21/25 15:46 Temperature Pulse Rate 62 62 62 Respiratory Rate 13 17 13 Blood Pressure 125/83 121/77 124/85 Pulse Oximetry 98 98 100 Oxygen Delivery Oxygen Flow Rate 01/21/25 16:01 01/21/25 16:16 01/21/25 16:31 Temperature Pulse Rate 61 59 L 62 Respiratory Rate 12 14 13 Blood Pressure 125/86 128/84 134/82 Pulse Oximetry 100 100 100 Oxygen Delivery Oxygen Flow Rate 01/21/25 16:46 01/21/25 17:00 01/21/25 17:30 Temperature Pulse Rate 60 62 61 Respiratory Rate 17 12 15 Blood Pressure 141/92 H 140/102 H 179/103 H Pulse Oximetry 99 100 100 Oxygen Delivery Oxygen Flow Rate 01/21/25 18:00 01/21/25 18:21 01/21/25 18:32 Temperature Pulse Rate 67 57 L 66 Respiratory Rate 15 12 Blood Pressure 174/107 H 174/107 H 158/108 H Pulse Oximetry 100 100 Oxygen Delivery Oxygen Flow Rate 01/21/25 19:00 01/21/25 20:00 01/21/25 20:00 Temperature 36.6 C Pulse Rate 67 69 56 L Respiratory Rate 12 Blood Pressure 171/100 H 161/107 H Pulse Oximetry 100 Oxygen Delivery Oxygen Flow Rate 01/21/25 20:00 01/21/25 20:00 01/21/25 20:29 Temperature Pulse Rate 69 62 Respiratory Rate 12 Blood Pressure 161/107 H 185/95 H Pulse Oximetry 100 100 Oxygen Delivery Nasal Cannula Oxygen Flow Rate 2 01/21/25 20:43 01/21/25 22:00 01/21/25 22:00 Temperature Pulse Rate 66 59 L 66 Respiratory Rate 18 Blood Pressure 147/99 H Pulse Oximetry 100 Oxygen Delivery Oxygen Flow Rate 01/21/25 22:00 01/21/25 22:40 01/22/25 00:00 Temperature Pulse Rate 66 65 Respiratory Rate Blood Pressure 147/99 H Pulse Oximetry 100 Oxygen Delivery Nasal Cannula Oxygen Flow Rate 2 01/22/25 00:00 01/22/25 00:00 01/22/25 00:00 Temperature 36.7 C Pulse Rate 65 65 Respiratory Rate 13 Blood Pressure 138/85 138/85 Pulse Oximetry 97 97 Oxygen Delivery Nasal Cannula Oxygen Flow Rate 2 01/22/25 00:15 01/22/25 00:16 01/22/25 01:20 Temperature Pulse Rate 59 L 71 Respiratory Rate 17 Blood Pressure 134/82 Pulse Oximetry 98 98 Oxygen Delivery Nasal Cannula Autopap Oxygen Flow Rate 2 01/22/25 02:00 01/22/25 02:00 01/22/25 02:14 Temperature Pulse Rate 58 L 58 L 72 Respiratory Rate 13 Blood Pressure 140/80 140/80 Pulse Oximetry 98 Oxygen Delivery Oxygen Flow Rate 01/22/25 04:00 01/22/25 04:00 01/22/25 04:00 Temperature Pulse Rate 55 L 55 L Respiratory Rate 11 L Blood Pressure 111/68 111/68 Pulse Oximetry 96 97 Oxygen Delivery Nasal Cannula Oxygen Flow Rate 2 01/22/25 04:00 Temperature Pulse Rate 55 L Respiratory Rate Blood Pressure Pulse Oximetry Oxygen Delivery Oxygen Flow Rate Exam 2 Const: General: cooperative, comfortable, no acute distress, alert, awake and well nourished Nutritional Appearance: well nourished O rientation/consciousness: patient oriented x3 HENMT: Head: normal to inspection, normocephalic and atraumatic Ears: h earing grossly normal bilaterally Face/Nose/Sinus: Normal external nose present, Normal nares present, no nasal discharge noted, normal facial exam and No erythema Face and sinus: normal facial exam and no erythema Mouth: No drooling and No restricted motion Throat: uvula midline Eyes: General: appearance normal, both eyes and all related structures A lignment and Position: position normal Conjunctivae: conjunctivae normal S clera: sclerae normal Direct Ophthalmoscopy: No photophobia Neck: Neck: normal visual inspection and no JVD Thyroid: thyroid normal Carotids: no bruits Lymphatic: lymphedema not noted Chest: Chest palpation & inspection: normal inspection of the chest and no tenderness Resp: Effort & Inspection: normal respiratory effort and no nasal flaring A uscultation: clear to auscultation bilaterally, no crackles, no rales and no wheezes Cardio: Jugular venous distension: no JVD Rate: regular rate Rhythm: r egular rhythm Heart sounds: S1 normal heart sound present, S2 normal heart sound present, no gallops, no murmurs and no rubs GI: Inspection: non-distended GI Palp: No abdominal tenderness and No Soft to palpation Auscultation: normal bowel sounds Rectal Exam: deferred : General: No no CVA tenderness Back/Spine/Pelvis: Back: No no CVA tenderness Cervical Spine: cervical ROM normal Skin: General skin exam: normal color and rashes and/or lesions noted Neuro: General: patient oriented x3 Cranial nerves: No CN's II-XII intact bilaterally Speech: normal speech Motor exam (neuro): no tremors Extrem: General: normal to inspection and pedal edema present Psych: Appearance: grossly normal and well kempt Speech and movement: N ormal speech and movement present Affect: normal affect Results Labs and Meds 01/21/25 14:13 01/21/25 14:13 Lab results: Cardiac Enzymes 01/21/25 01/21/25 01/21/25 Range/Units 14:13 17:10 20:31 AST 32 (17-59) U/L Troponin I < 0.012 0.040 H* D 0.236 H* D (0.000-0.034) ng/mL 01/21/25 Range/Units 23:46 AST (17-59) U/L Troponin I 0.629 H* D (0.000-0.034) ng/mL Coagulation 01/21/25 01/21/25 01/22/25 Range/Units 14:13 18:14 01:13 PT 12.9 13.2 (11.1-14.7) Seconds APTT 24.4 24.3 47.0 H (22.3-36.8) Seconds CBC 01/21/25 Range/Units 14:13 WBC 8.4 (4.5-10.0) K/mm3 RBC 4.86 (4.6-6.20) M/mm3 Hgb 15.0 (14.0-18.0) g/dL Hct 45.4 (42.0-52.0) % Plt Count 248 (150-375) k/mm3 Lymph # (Auto) 2.87 (0.9-3.2) K/mm3 [place] # (Auto) 0.9 H (0.1-0.6) K/mm3 Eos # (Auto) 0.1 (0-0.3) K/mm3 Baso # (Auto) 0.0 (0.0-0.1) K/mm3 Comprehensive Metabolic Panel 01/21/25 Range/Units 14:13 Sodium 138 (137-145) mmol/L Potassium 3.8 (3.4-5.0) mmol/L Chloride 105 (98-107) mmol/L Carbon Dioxide 27 (22-30) mmol/L BUN 17 (9-20) mg/dL Creatinine 0.83 (0.7-1.3) mg/dL Glucose 104 (65-110) mg/dL Calcium 9.7 (8.4-10.2) mg/dL AST 32 (17-59) U/L ALT 26 (6-50) U/L Alkaline Phosphatase 54 (38-126) U/L Total Protein 7.4 (6.3-8.2) g/dL Albumin 4.2 (3.5-5.1) g/dL Intake and Output 01/21/25 01/21/25 01/22/25 15:59 23:59 07:59 Intake Total 7.8 102.0 Output Total 150 400 Balance -142.2 -298.0 Intake: IV 7.8 102.0 Heparin Sod/D5w 100 Units/ml 25 70.7 ,000 units In 250 ml @ 1,200 UNITS/HR 12 mls/hr IV CONT . [id number] [facility] Rx#:[id number] Nitroglycerin/D5w 200 Mcg/ml 50 7.8 31.3 mg In 250 ml @ 30 MCG/MIN 9 mls/hr IV CONT .Q24H [facility] Rx#: [id number] Output: Urine 150 400
--- NOTE | 2025-01-22 06:10 | P.SEDATION_ITS ---
Moderate Sedation Note-Pt Data Patient Data Diagnosis: NSTEMI Present Complaint: Chest pain Procedure to be performed/Plan: Coronary angio Allergies Allergy/AdvReac Type Severity Reaction Status Date / Time lisinopril Allergy Unknown Verified 01/19/25 14:05 Home Medications ?Medication ?Instructions ?Recorded ?Confirmed ?Type aspirin 81 mg tablet,delayed 81 mg PO DAILY 07/22/19 01/21/25 History release (Adult Aspirin Regimen) atorvastatin 80 mg tablet (Lipitor) 80 mg PO HS 07/22/19 01/21/25 History carvedilol 6.25 mg tablet 6.25 mg PO Q12H 07/22/19 01/21/25 History ezetimibe 10 mg tablet 10 mg PO HS 07/22/19 01/21/25 History tadalafil 20 mg tablet 20 mg PO DAILY PRN sexual activity 08/30/19 01/21/25 History ticagrelor 60 mg tablet (Brilinta) 60 mg PO Q12H 08/30/19 01/21/25 History losartan 50 mg tablet 50 mg PO DAILY 08/18/21 01/21/25 History tamsulosin 0.4 mg capsule (Flomax) 0.4 mg PO DAILY #7 caps 12/19/24 01/21/25 Rx Current Medications: Active Medications Acetaminophen (Acetaminophen 325 Mg Tablet) 650 mg PO Q6H PRN PRN Reason: Mild Pain (1-3) or Fever Aspirin (Aspirin 81 Mg Enteric Tablet) 81 mg PO DAILY [facility] Atorvastatin Calcium (Atorvastatin 40 Mg Tablet) 80 mg PO HS [facility] Last Admin: 01/21/25 20:43 Dose: 80 mg Carvedilol (Carvedilol 6.25 Mg Tablet) 6.25 mg PO Q12HR [facility] Last Admin: 01/21/25 20:43 Dose: 6.25 mg Ezetimibe (Ezetimibe 10 Mg Tablet) 10 mg PO HS [facility] Last Admin: 01/21/25 20:43 Dose: 10 mg Heparin Sodium (Porcine) (Heparin Sodium 5,000 Units/Ml Vial) 4,000 units IV PUSH PRN PRN PRN Reason: aPTT less than 55 seconds Last Admin: 01/22/25 02:11 Dose: 4,000 units Heparin Sodium (Porcine) (Heparin Sodium 5,000 Units/Ml Vial) 3,000 units IV PUSH PRN PRN PRN Reason: aPTT 55 - 70 seconds Heparin Sodium/Dextrose (Heparin Sodium/D5w 100 Units/Ml) 25,000 units in 250 mls @ 12 mls/hr IV CONT .[id number] [facility]; Protocol Last Titration: 01/22/25 02:11 Dose: 1,200 units/hr, 12 mls/hr Nitroglycerin/Dextrose (Nitroglycerin In 5% Dextrose 50 Mg) 50 mg in 250 mls @ 9 mls/hr IV CONT .Q24H [facility]; Protocol Last Titration: 01/22/25 04:00 Dose: 30 mcg/min, 9 mls/hr Losartan Potassium (Losartan Potassium 50 Mg Tablet) 50 mg PO DAILY [facility] Morphine Sulfate (Morphine Sulfate (*Crx) 2 Mg/Ml Inj) 2 mg IV PUSH Q4H PRN PRN Reason: Pain Rated 7-10 Ondansetron HCl (Ondansetron Inj 4 Mg/2 Ml Vial) 4 mg IV PUSH Q6H PRN PRN Reason: Nausea And Vomiting Tamsulosin HCl (Tamsulosin Hcl 0.4 Mg Capsule) 0.4 mg PO DAILY [facility] Ticagrelor (Ticagrelor 60 Mg Tablet) 60 mg PO Q12HR [facility] Sedation/Anesthesia: No previous sedation/anesthesia problems (including family history). [facility] Past Medical History Medical History Essential hypertension Hyperlipidemia Coronary artery disease Kidney stone Surgical History Surgical History History of lithotripsy History of coronary angioplasty with insertion of stent Family History Family History Sibling Family history of obesity Family history of coronary artery disease Family history of diabetes mellitus in first degree relative Mother Patient's mother is Family history of heart disease in male family member before age 55 Father Acute myocardial infarction, Onset Age: 52 Family history of coronary artery disease, Onset Age: 52 Family history of heart disease in male family member before age 55 Grandparent Carcinoma of colon Social History Social History Social History: Surrogate medical decision maker: Erma Hubbard, spouse. Code status: Full code. Smoking status: Never smoker Second hand tobacco smoke exposure: No Alcohol intake: never Substance use: never Do You Feel Safe in your Home?: Yes Lack of Transportation: No Lack of Food: Never True Current Housing: I Have Housing Concerned About Future Housing: No Difficulty Paying Gas/Electric Bills: No Difficulty Paying for Meds: No Currently Unemployed: No Education: Trade/Vocational Certificate Difficulty w/ Childcare or Family Care: No Spiritual care concerns: No Mod Sed Physical Exam Physical Exam Pre Procedural Exam: Normal: Appearance, Eyes, Ears, Nose, Neck, Throat, Airway, Lungs, Heart Size, Heart Rate, Heart Rhythm, Neuro Exam, Abdomen, Liver, Kidneys, Spleen, Breasts, Genitalia, Extremities and Skin Hours since solid foods: 8 Hours since liquid intake: 8 Mallampati Classification: class 1 Internal Medicine - PN: Obj Da Vital Signs Vital Signs: Vital Signs - 24 hr 01/21/25 14:07 01/21/25 14:12 01/21/25 14:15 Temperature 36.4 C Pulse Rate 71 60 75 Respiratory Rate 19 22 H 13 Blood Pressure 172/122 H 177/122 H 198/130 H Pulse Oximetry 100 100 95 Oxygen Delivery Room Air Oxygen Flow Rate 01/21/25 14:30 01/21/25 14:34 01/21/25 14:34 Temperature Pulse Rate 70 75 Respiratory Rate 13 Blood Pressure 123/76 Pulse Oximetry 99 100 Oxygen Delivery Nasal Cannula Oxygen Flow Rate 2 01/21/25 14:36 01/21/25 14:45 01/21/25 15:12 Temperature Pulse Rate 71 65 Respiratory Rate 14 14 Blood Pressure 131/92 H 125/81 Pulse Oximetry 100 100 98 Oxygen Delivery Nasal Cannula Oxygen Flow Rate 2 01/21/25 15:15 01/21/25 15:30 01/21/25 15:46 Temperature Pulse Rate 62 62 62 Respiratory Rate 13 17 13 Blood Pressure 125/83 121/77 124/85 Pulse Oximetry 98 98 100 Oxygen Delivery Oxygen Flow Rate 01/21/25 16:01 01/21/25 16:16 01/21/25 16:31 Temperature Pulse Rate 61 59 L 62 Respiratory Rate 12 14 13 Blood Pressure 125/86 128/84 134/82 Pulse Oximetry 100 100 100 Oxygen Delivery Oxygen Flow Rate 01/21/25 16:46 01/21/25 17:00 01/21/25 17:30 Temperature Pulse Rate 60 62 61 Respiratory Rate 17 12 15 Blood Pressure 141/92 H 140/102 H 179/103 H Pulse Oximetry 99 100 100 Oxygen Delivery Oxygen Flow Rate 01/21/25 18:00 01/21/25 18:21 01/21/25 18:32 Temperature Pulse Rate 67 57 L 66 Respiratory Rate 15 12 Blood Pressure 174/107 H 174/107 H 158/108 H Pulse Oximetry 100 100 Oxygen Delivery Oxygen Flow Rate 01/21/25 19:00 01/21/25 20:00 01/21/25 20:00 Temperature 36.6 C Pulse Rate 67 69 56 L Respiratory Rate 12 Blood Pressure 171/100 H 161/107 H Pulse Oximetry 100 Oxygen Delivery Oxygen Flow Rate 01/21/25 20:00 01/21/25 20:00 01/21/25 20:29 Temperature Pulse Rate 69 62 Respiratory Rate 12 Blood Pressure 161/107 H 185/95 H Pulse Oximetry 100 100 Oxygen Delivery Nasal Cannula Oxygen Flow Rate 2 01/21/25 20:43 01/21/25 22:00 01/21/25 22:00 Temperature Pulse Rate 66 59 L 66 Respiratory Rate 18 Blood Pressure 147/99 H Pulse Oximetry 100 Oxygen Delivery Oxygen Flow Rate 01/21/25 22:00 01/21/25 22:40 01/22/25 00:00 Temperature Pulse Rate 66 65 Respiratory Rate Blood Pressure 147/99 H Pulse Oximetry 100 Oxygen Delivery Nasal Cannula Oxygen Flow Rate 2 01/22/25 00:00 01/22/25 00:00 01/22/25 00:00 Temperature 36.7 C Pulse Rate 65 65 Respiratory Rate 13 Blood Pressure 138/85 138/85 Pulse Oximetry 97 97 Oxygen Delivery Nasal Cannula Oxygen Flow Rate 2 01/22/25 00:15 01/22/25 00:16 01/22/25 01:20 Temperature Pulse Rate 59 L 71 Respiratory Rate 17 Blood Pressure 134/82 Pulse Oximetry 98 98 Oxygen Delivery Nasal Cannula Autopap Oxygen Flow Rate 2 01/22/25 02:00 01/22/25 02:00 01/22/25 02:14 Temperature Pulse Rate 58 L 58 L 72 Respiratory Rate 13 Blood Pressure 140/80 140/80 Pulse Oximetry 98 Oxygen Delivery Oxygen Flow Rate 01/22/25 04:00 01/22/25 04:00 01/22/25 04:00 Temperature Pulse Rate 55 L 55 L Respiratory Rate 11 L Blood Pressure 111/68 111/68 Pulse Oximetry 96 97 Oxygen Delivery Nasal Cannula Oxygen Flow Rate 2 01/22/25 04:00 Temperature Pulse Rate 55 L Respiratory Rate Blood Pressure Pulse Oximetry Oxygen Delivery Oxygen Flow Rate Intake/Output Intake/Output: Intake & Output 01/19/25 01/20/25 01/21/25 01/22/25 23:59 23:59 23:59 23:59 Intake Total 7.8 102.0 Output Total 150 400 Balance -142.2 -298.0 Meds/Results Medications: Active Medications Generic Name Dose Route Start Last Admin Trade Name Freq PRN Reason Stop Dose Admin Acetaminophen 650 mg 01/21/25 19:32 Acetaminophen 325 Mg Tablet PO Q6H PRN Mild Pain (1-3) or Fever Aspirin 81 mg 01/22/25 09:00 Aspirin 81 Mg Enteric Tablet PO DAILY [facility] Atorvastatin Calcium 80 mg 01/21/25 21:00 01/21/25 20:43 Atorvastatin 40 Mg Tablet PO 80 mg HS [facility] Administration Carvedilol 6.25 mg 01/21/25 21:00 01/21/25 20:43 Carvedilol 6.25 Mg Tablet PO 6.25 mg Q12HR [facility] Administration Ezetimibe 10 mg 01/21/25 21:00 01/21/25 20:43 Ezetimibe 10 Mg Tablet PO 10 mg HS [facility] Administration Heparin Sodium (Porcine) 4,000 units 01/21/25 17:44 01/22/25 02:11 Heparin Sodium 5,000 Units/Ml Vial IV PUSH 4,000 units PRN PRN Administration aPTT less than 55 seconds Heparin Sodium (Porcine) 3,000 units 01/21/25 17:44 Heparin Sodium 5,000 Units/Ml Vial IV PUSH PRN PRN aPTT 55 - 70 seconds Heparin Sodium/Dextrose 25,000 units in 250 mls @ 12 mls/hr 01/21/25 17:45 01/22/25 02:11 Heparin Sodium/D5w 100 Units/Ml IV CONT 1,200 units/hr .[id number] [facility] 12 mls/hr Titration Protocol 1,200 UNITS/HR Nitroglycerin/Dextrose 50 mg in 250 mls @ 9 mls/hr 01/21/25 17:50 01/22/25 04:00 Nitroglycerin In 5% Dextrose 50 Mg IV CONT 30 mcg/min .Q24H [facility] 9 mls/hr Titration Protocol 30 MCG/MIN Losartan Potassium 50 mg 01/22/25 09:00 Losartan Potassium 50 Mg Tablet PO DAILY [facility] Morphine Sulfate 2 mg 01/21/25 19:32 Morphine Sulfate (*Crx) 2 Mg/Ml Inj IV PUSH Q4H PRN Pain Rated 7-10 Ondansetron HCl 4 mg 01/21/25 19:32 Ondansetron Inj 4 Mg/2 Ml Vial IV PUSH Q6H PRN Nausea And Vomiting Tamsulosin HCl 0.4 mg 01/22/25 09:00 Tamsulosin Hcl 0.4 Mg Capsule PO DAILY [facility] Ticagrelor 60 mg 01/21/25 21:00 Ticagrelor 60 Mg Tablet PO Q12HR [facility] Radiology Results: ITS Impressions Chest X-Ray 01/21/25 15:05 IMPRESSION: No acute cardiopulmonary pathology. Labs 01/21/25 14:13 01/21/25 14:13 Labs: Laboratory Results - last 24 hr 01/21/25 01/21/25 01/21/25 14:13 17:10 18:14 WBC 8.4 RBC 4.86 Hgb 15.0 Hct 45.4 MCV 93.4 MCH 30.9 MCHC 33.0 RDW 13.0 Plt Count 248 MPV 9.7 Immature Gran % (Auto) 0.2 Neut % (Auto) 53.6 Lymph % (Auto) 34.0 Randall % (Auto) 10.9 H Eos % (Auto) 0.8 Baso % (Auto) 0.5 Lymph # (Auto) 2.87 Randall # (Auto) 0.9 H Eos # (Auto) 0.1 Baso # (Auto) 0.0 Abs Immat Gran (auto) 0.02 Absolute Neuts (auto) 4.5 Absolute Nucleated RBC 0.000 Nucleated RBC % 0.0 PT 12.9 13.2 INR 1.0 1.0 APTT 24.4 24.3 Sodium 138 Potassium 3.8 Chloride 105 Carbon Dioxide 27 Anion Gap 6 BUN 17 Creatinine 0.83 Estim Creat Clear Calc 92 Estimated GFR > 60 Glucose 104 Calcium 9.7 Total Bilirubin 1.1 AST 32 ALT 26 Alkaline Phosphatase 54 Troponin I < 0.012 0.040 H* D Total Protein 7.4 Albumin 4.2 Lipase 168 Nasal MRSA (PCR) 07/07/0601/21/25 01/21/25 20:31 20:44 23:46 WBC RBC Hgb Hct MCV MCH MCHC RDW Plt Count MPV Immature Gran % (Auto) Neut % (Auto) Lymph % (Auto) Randall % (Auto) Eos % (Auto) Baso % (Auto) Lymph # (Auto) Randall # (Auto) Eos # (Auto) Baso # (Auto) Abs Immat Gran (auto) Absolute Neuts (auto) Absolute Nucleated RBC Nucleated RBC % PT INR APTT Sodium Potassium Chloride Carbon Dioxide Anion Gap BUN Creatinine Estim Creat Clear Calc Estimated GFR Glucose Calcium Total Bilirubin AST ALT Alkaline Phosphatase Troponin I 0.236 H* D 0.629 H* D Total Protein Albumin Lipase Nasal MRSA (PCR) Not detected 01/22/25 01:13 WBC RBC Hgb Hct MCV MCH MCHC RDW Plt Count MPV Immature Gran % (Auto) Neut % (Auto) Lymph % (Auto) Randall % (Auto) Eos % (Auto) Baso % (Auto) Lymph # (Auto) Randall # (Auto) Eos # (Auto) Baso # (Auto) Abs Immat Gran (auto) Absolute Neuts (auto) Absolute Nucleated RBC Nucleated RBC % PT INR APTT 47.0 H Sodium Potassium Chloride Carbon Dioxide Anion Gap BUN Creatinine Estim Creat Clear Calc Estimated GFR Glucose Calcium Total Bilirubin AST ALT Alkaline Phosphatase Troponin I Total Protein Albumin Lipase Nasal MRSA (PCR) ASA Classification/Sedation ASA Classification/Sedation ASA Class: I Emergent: No Risks: Risks, benefits and alternatives explained and patient/family accepted plan for sedation. Patient re-evaluated immediately prior to sedation.
--- NOTE | 2025-01-22 06:11 | P.PCNCC_ITS ---
Cardiac Cath Procedure Note Date of procedure:: 01/22/25 Performing physician:: Nichole Walker MD Date of service January 22, 2025 Indication:: Active chest pain, NSTEMI Brief clinical history:: This is a 59-year-old male with coronary artery disease with history of stents in 2012 and 2018, hypertension, hyperlipidemia, and benign prostatic hyperplasia. Intermittent chest pain for several months he was doing yd work when he started to have central and left chest pain. Denies pain. Not going away. He is off his aspirin and Brilinta for the last 3 days in anticipation to remove kidney stone. Came to ER and ST segment changes anterior leads concerning for LAD disease. Was started IV nitroglycerin drip but continues to have continuous chest pain. Troponin 0.04, 0.2, 0.6. Active chest pain 08/22 Procedure Procedure performed:: 1-Moderate sedation that started at 6:20 a.m. and ended at 7:27 a.m. total duration 67 minutes using 2mg of Versed and 50mcg fentanyl. The registered nurse was cesar lloyd. 2-Selective left and right coronary angiogram. 3-Left heart catheterization with measurement of LVEDP and measurement of gradient across aortic valve. 47-LV angiogram 5-intravascular ultrasound of RCA.6- 6-deployment of a drug-eluting stent heriberto 3 x 15 covering mid PDA. - 7-balloon angioplasty-of mid RCA stent using 3.5 noncompliant balloon \under 25 atmospheres Right common femoral arterial angiogram. 5-Deployment of 6 [place] Angio-Seal. Sedation/Medication given:: Moderate sedation. Access site:: Right common femoral artery. Estimated blood loss:: 10cc Procedure note:: After informed consent patient was brought in to airport maintenance laborer with the was draped and prepped in usual manner. Moderate sedation was given and the right groin w as infiltrated using 1% lidocaine. Five [place] sheath was obtained using micropuncture needle and the modified Seldinger technique. Selective left coronary angiogram was done using JL4 catheter with the tip of the catheter placed in the left main coronary artery. Selective right coronary angiogram was done using JR4 catheter with the tip of the catheter placed to the right coronary artery. After that 5 [place] pigtail catheter was advanced across the aortic valve into the left ventricle with measurement of LVEDP and measurement of gradient across aortic valve. LV angiogram was done as well .Right common femoral arterial angiogram was done. After that 6 [place] guide catheter JR4 was engaged in the RCA and then coronary luge wire was advanced to distal PDA and then intravascular ultrasound was done. Subsequent balloon angioplasty done PDA using 3 x 10 balloon under nominal pressure for 25 seconds. Then deployed drug-eluting stent heribetro 3 x 15 covering mid PDA. After that we used a 3.5 by 20 noncompliant balloon and inflated it to 25 atmospheres inside the mid RCA stent. Findings:: 1- left coronary artery is a large artery that divides into large LAD, large circumflex artery. Left main is free of disease. 2- left anterior descending artery is a large artery that runs and wraps around the apex. Has a patent stent covering the ostium and proximal portion. Also a medium-sized diagonal branch has stent covering ostium. Widely patent. 3- leftcircumflex artery is a large artery and codominant right knee patent stent in the mid segment. 4- right coronary artery is very large artery. Has a stent in the mid segment with 30% InStent restenosis. PDA in the mid segment 80%. 5- LVEDP was 12 mm Hg and no gradient across aortic valve. 6- opening arterial pressure was 118/76 and closing pressure was 117/69 7- right femoral artery angiogram shows no significant disease in the right common femoral artery. 8-intravascular ultrasound of the RCA showed that the PDA diameter 3 mm. Proximal RCA diameter almost 5 mm and distal to the mid stent 4.5 mm. The stent strut size measured 3.5 mm. 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 Ejection fraction 55%. Conclusion:: -stent to mid PDA -balloon angioplasty of the mid RCA stent for re- expansion. -patent stent ostial, proximal LAD, ostial diagonal, mid left circumflex artery. -LV apical aneurysm Assessment and Plan Assessment and plan (1) Non-ST elevation NC (NSTEMI): Code(s): I21.4 - Non-ST elevation (NSTEMI) myocardial infarction Status: Acute Plan -continue aspirin and Brilinta -risk factor modification for CAD -obtain an echocardiogram to assess the LV apical aneurysm.
--- NOTE | 2025-01-22 06:22 | PC.NURSE ---
[id number] Patient taken to cath lab nurse
--- NOTE | 2025-01-22 07:44 | ECG_ITS ---
Test Date: 2025-01-22 09:03:04 Measurements Intervals [place] Rate: 58 P: 61 SD: 173 QRS: -21 QRSD: 110 T: 13 QT: 461 QTc: 456 Interpretive Statements SINUS BRADYCARDIA POSSIBLE SEPTAL MYOCARDIAL INFARCTION , RECENT MARKED T-WAVE ABNORMALITY, CONSIDER ANTEROLATERAL ISCHEMIA [-0.5+ mV T-WAVE IN I/aVL/V3-V6] ABNORMAL ECG Electronically Signed On 01-22-2025 11:39:26 CDT by José Miguel Dsouza M.D.
--- NOTE | 2025-01-22 08:12 | WPDCNINT ---
Assessment and Plan Assessment and plan (1) Non-ST elevation [place] (NSTEMI): Code(s): I21.4 - Non-ST elevation (NSTEMI) myocardial infarction Status: Acute Assessment and Plan: 01/21: Presented with chest pain, radiating to the neck, jaw and left arm. Patient has been off aspirin and ticagrelor for 3 days and patient from kidney stone removal. -patient was started on nitroglycerin infusion on admission due to chest pain. -Troponins was 0.04, 0.2, 0.6. -Patient continued to have active chest pain despite being on nitroglycerin infusion -01/22: Patient was taken to the cardiac oven laborer, status post stent to mid PDA, balloon angioplasty of mid RCA stent for re-expansion, patent stent in the ostial, proximal LAD, ostial diagonal and mid left circumflex artery. 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 EF of 55%, LVEDP was 12 mmHg -continue aspirin, ticagrelor, Coreg, losartan, atorvastatin and ezetimibe -cardiology following the patient -discussed with cardiology, will order echocardiogram to evaluate for the LV aneurysm (2) Essential hypertension: Code(s): I10 - Essential (primary) hypertension Status: Acute Assessment and Plan: Continue Coreg and losartan (3) Hyperlipidemia: Code(s): E78.5 - Hyperlipidemia, unspecified Status: Acute Assessment and Plan: Continue ezetimibe and atorvastatin Plan DVT prophylaxis: Status post cardiac catheterization Stress ulcer prophylaxis: Not indicated Nutrition: Heart healthy diet Code Status: Full code Critical Care Time Spent: 48 minutes Due to a high probability of clinically significant, life threatening deterioration, the patient required my highest level of preparedness to intervene emergently and I personally spent this critical care time directly and personally managing the patient. This critical care time included obtaining a history; examining the patient; pulse oximetry; ordering and review of studies; arranging urgent treatment with development of a management plan; evaluation of patient's response to treatment; frequent reassessment; and discussions with other providers. It was exclusive of separately billable procedures and treating other patients and teaching time. Please see Assessment and Plan section and the rest of the note for further information on patient assessment and treatment This dictation may have been done utilizing a voice recognition system. Attempts have been made to correct errors. However, there may be uncorrected grammatical, spelling, and recognitions errors present. Cell Stripper Consult Note Consult date: 01/22/25 Reason for consult: Chest pain, NSTEMI, status post PTCA/PCI with FAUSTINA x1 to mid PDA,, balloon angioplasty of the mid RCA stent for re-expansion, LV gram showed apical aneurysm HPI: Ruben Hubbard is a 59 year old male with significant past medical history of coronary artery disease status post stents in 2012 and 2018, hypertension, hyperlipidemia, BPH, family history of coronary artery disease presented the ED on 01/21/2025 with complains of chest pain. Patient has been having chest pain for the last several months which have been intermittent, brief and self-resolving. 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 On the day of admission, patient was doing yd work, mowing the lawn and drinking many developed left-sided chest pain which is continuous and intensified and radiated to the neck, jaw and shoulders. He also had some diaphoresis and shortness of breath. Denies any nausea vomiting. He has been off aspirin and ticagrelor for the last 3 days in anticipation for an upcoming urological procedure for removal of a kidney stone. In the ED EKG showed diffuse ST-T changes in anterior leads. Patient was started on IV nitroglycerin due to continues chest pain. Initial troponins was 0.04, 0.2, 0.6. Patient continued to have active chest pain through the night and nitroglycerin infusion had been increased through the night. 01/22: Patient was taken to the cardiac oven laborer early this morning, received a stent to mid PDA, balloon angioplasty of mid RCA stent for re-expansion, patent stent in the ostial, proximal LAD, ostial diagonal and mid left circumflex artery. 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 EF of 55%, LVEDP was 12 mmHg Patient seen and examined upon arrival to the ICU, pleasant gentleman, continues to have some discomfort in his neck and jaw, states his chest pain is resolving. Hemodynamically stable, denies any tobacco, alcohol illicit drug use. 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 Denies any shortness of breath, nausea, diaphoresis, abdominal pain, nausea or vomiting Review of Systems Review of Systems: All systems reviewed & are unremarkable except as noted in HPI and below [facility] Past Medical History Medical History Essential hypertension Hyperlipidemia Coronary artery disease Kidney stone Surgical History Surgical History History of lithotripsy History of coronary angioplasty with insertion of stent Family History Family History Sibling Family history of obesity Family history of coronary artery disease Family history of diabetes mellitus in first degree relative Mother Patient's mother is Family history of heart disease in male family member before age 55 Father Acute myocardial infarction, Onset Age: 52 Family history of coronary artery disease, Onset Age: 52 Family history of heart disease in male family member before age 55 Grandparent Carcinoma of colon Social History Social History Social History: Surrogate medical decision maker: Erma Hubbard, spouse. Code status: Full code. Smoking status: Never smoker Second hand tobacco smoke exposure: No Alcohol intake: never Substance use: never Do You Feel Safe in your Home?: Yes Lack of Transportation: No Lack of Food: Never True Current Housing: I Have Housing Concerned About Future Housing: No Difficulty Paying Gas/Electric Bills: No Difficulty Paying for Meds: No Currently Unemployed: No Education: Trade/Vocational Certificate Difficulty w/ Childcare or Family Care: No Spiritual care concerns: No Meds Home Medications and Allergies Home Medications ?Medication ?Instructions ?Recorded ?Confirmed ?Type aspirin 81 mg tablet,delayed 81 mg PO DAILY 07/22/19 01/21/25 History release (Adult Aspirin Regimen) atorvastatin 80 mg tablet (Lipitor) 80 mg PO HS 07/22/19 01/21/25 History carvedilol 6.25 mg tablet 6.25 mg PO Q12H 07/22/19 01/21/25 History ezetimibe 10 mg tablet 10 mg PO HS 07/22/19 01/21/25 History tadalafil 20 mg tablet 20 mg PO DAILY PRN sexual activity 08/30/19 01/21/25 History ticagrelor 60 mg tablet (Brilinta) 60 mg PO Q12H 08/30/19 01/21/25 History losartan 50 mg tablet 50 mg PO DAILY 08/18/21 01/21/25 History tamsulosin 0.4 mg capsule (Flomax) 0.4 mg PO DAILY #7 caps 12/19/24 01/21/25 Rx Allergies Allergy/AdvReac Type Severity Reaction Status Date / Time lisinopril Allergy Unknown Verified 01/19/25 14:05 Vital Signs Vital Signs - 24 hr 01/21/25 14:07 01/21/25 14:12 01/21/25 14:15 Temperature 97.6 F Pulse Rate 71 60 75 Respiratory Rate 19 22 H 13 Blood Pressure 172/122 H 177/122 H 198/130 H Pulse Oximetry 100 100 95 Oxygen Delivery Room Air Oxygen Flow Rate 01/21/25 14:30 01/21/25 14:34 01/21/25 14:34 Temperature Pulse Rate 70 75 Respiratory Rate 13 Blood Pressure 123/76 Pulse Oximetry 99 100 Oxygen Delivery Nasal Cannula Oxygen Flow Rate 2 01/21/25 14:36 01/21/25 14:45 01/21/25 15:12 Temperature Pulse Rate 71 65 Respiratory Rate 14 14 Blood Pressure 131/92 H 125/81 Pulse Oximetry 100 100 98 Oxygen Delivery Nasal Cannula Oxygen Flow Rate 2 01/21/25 15:15 01/21/25 15:30 01/21/25 15:46 Temperature Pulse Rate 62 62 62 Respiratory Rate 13 17 13 Blood Pressure 125/83 121/77 124/85 Pulse Oximetry 98 98 100 Oxygen Delivery Oxygen Flow Rate 01/21/25 16:01 01/21/25 16:16 01/21/25 16:31 Temperature Pulse Rate 61 59 L 62 Respiratory Rate 12 14 13 Blood Pressure 125/86 128/84 134/82 Pulse Oximetry 100 100 100 Oxygen Delivery Oxygen Flow Rate 01/21/25 16:46 01/21/25 17:00 01/21/25 17:30 Temperature Pulse Rate 60 62 61 Respiratory Rate 17 12 15 Blood Pressure 141/92 H 140/102 H 179/103 H Pulse Oximetry 99 100 100 Oxygen Delivery Oxygen Flow Rate 01/21/25 18:00 01/21/25 18:21 01/21/25 18:32 Temperature Pulse Rate 67 57 L 66 Respiratory Rate 15 12 Blood Pressure 174/107 H 174/107 H 158/108 H Pulse Oximetry 100 100 Oxygen Delivery Oxygen Flow Rate 01/21/25 19:00 07/12/25 20:00 01/21/25 20:00 Temperature 97.9 F Pulse Rate 67 69 56 L Respiratory Rate 12 Blood Pressure 171/100 H 161/107 H Pulse Oximetry 100 Oxygen Delivery Oxygen Flow Rate 01/21/25 20:00 01/21/25 20:00 01/21/25 20:29 Temperature Pulse Rate 69 62 Respiratory Rate 12 Blood Pressure 161/107 H 185/95 H Pulse Oximetry 100 100 Oxygen Delivery Nasal Cannula Oxygen Flow Rate 2 01/21/25 20:43 01/21/25 22:00 01/21/25 22:00 Temperature Pulse Rate 66 59 L 66 Respiratory Rate 18 Blood Pressure 147/99 H Pulse Oximetry 100 Oxygen Delivery Oxygen Flow Rate 01/21/25 22:00 01/21/25 22:40 01/22/25 00:00 Temperature Pulse Rate 66 65 Respiratory Rate Blood Pressure 147/99 H Pulse Oximetry 100 Oxygen Delivery Nasal Cannula Oxygen Flow Rate 2 01/22/25 00:00 01/22/25 00:00 01/22/25 00:00 Temperature 98.0 F Pulse Rate 65 65 Respiratory Rate 13 Blood Pressure 138/85 138/85 Pulse Oximetry 97 97 Oxygen Delivery Oxygen Flow Rate 2 01/22/25 00:15 01/22/25 00:16 01/22/25 01:20 Temperature Pulse Rate 59 L 71 Respiratory Rate 17 Blood Pressure 134/82 Pulse Oximetry 98 98 Oxygen Delivery Nasal Cannula Autopap Oxygen Flow Rate 2 01/22/25 02:00 01/22/25 02:00 01/22/25 02:14 Temperature Pulse Rate 58 L 58 L 72 Respiratory Rate 13 Blood Pressure 140/80 140/80 Pulse Oximetry 98 Oxygen Delivery Oxygen Flow Rate 01/22/25 04:00 01/22/25 04:00 01/22/25 04:00 Temperature Pulse Rate 55 L 55 L Respiratory Rate 11 L Blood Pressure 111/68 111/68 Pulse Oximetry 96 97 Oxygen Delivery Oxygen Flow Rate 2 01/22/25 04:00 01/22/25 06:00 01/22/25 06:00 Temperature Pulse Rate 55 L 62 62 Respiratory Rate 14 Blood Pressure 121/78 Pulse Oximetry 100 Oxygen Delivery Oxygen Flow Rate 01/22/25 06:00 01/22/25 07:44 01/22/25 07:59 Temperature Pulse Rate 62 70 66 Respiratory Rate 15 17 Blood Pressure 121/78 124/88 142/89 H Pulse Oximetry 95 96 Oxygen Delivery Oxygen Flow Rate 01/22/25 08:00 01/22/25 08:00 Temperature Pulse Rate 69 Respiratory Rate 16 Blood Pressure 142/89 H Pulse Oximetry 96 99 Oxygen Delivery Room Air Oxygen Flow Rate Exam Narrative: General: Pleasant gentleman, in no acute distress HEENT:? Pupils are equal and reactive, sclera is clear, moist oral mucosa Neck:? Supple Respiratory:? Clear to auscultation bilaterally, no wheezing, adequate air entry Cardiac:? S1-S2 normal, regular rate and rhythm Abdomen:? Soft, nontender, nondistended, normoactive bowel sounds, obese Extremities:? Right groin site with no evidence of ecchymosis or hematoma, palpable pedal pulses Neuro:? Patient is awake alert, oriented, nonfocal Skin:? No skin lesions noted Psych:? Normal mentation and affect Results Labs 01/21/25 14:13 01/21/25 14:13 Labs: Short CBC 01/21/25 Range/Units 14:13 WBC 8.4 (4.5-10.0) K/mm3 Hgb 15.0 (14.0-18.0) g/dL Hct 45.4 (42.0-52.0) % Plt Count 248 (150-375) k/mm3 BMP 01/21/25 14:13 Sodium 138 Potassium 3.8 Chloride 105 Carbon Dioxide 27 BUN 17 Creatinine 0.83 Glucose 104 Calcium 9.7 Cardiac Enzymes 01/21/25 01/21/25 01/21/25 Range/Units 14:13 17:10 20:31 Troponin I < 0.012 0.040 H* D 0.236 H* D (0.000-0.034) ng/mL 01/21/25 Range/Units 23:46 Troponin I 0.629 H* D (0.000-0.034) ng/mL Liver Function 01/21/25 Range/Units 14:13 Total Bilirubin 1.1 (0.2-1.3) mg/dL AST 32 (17-59) U/L ALT 26 (6-50) U/L Alkaline Phosphatase 54 (38-126) U/L Albumin 4.2 (3.5-5.1) g/dL Hospitalist MIPS Advance Care Plan I have confirmed that the patient's Advanced Care Plan is present, code status is documented, or surrogate decision maker is listed in patient medical record.: Yes Medication Reconciliation I have utilized all available resources to obtain, update and review the patients current medications (includes all prescriptions, OTC, herbals, cannabis, and nutritional supplements).: Yes
[2025-01-22 08:14] LABS: Hematocrit 41.0 % (42.0-52.0); Hemoglobin 13.3 g/dL (14.0-18.0); Immature Granulocyte Percent A 0.1 % (0-0.5); Lymphocytes Absolute Auto 2.10 K/mm3 (0.9-3.2); Mean Corpuscular HGB Conc 32.4 g/dl (32-36); Mean Corpuscular Hemoglobin 31.1 pg (26-34); Mean Corpuscular Volume 96.0 fl (80-100); Nucleated Red Blood Cells Absolute Auto 0.000 K/mm3 (0.0-0.012); Nucleated Red Blood Cells Perc 0.0 % (0.0-0.2); Platelet Count Result 202 k/mm3 (150-375); Red Blood Count 4.27 M/mm3 (4.6-6.20); White Blood Count 7.4 K/mm3 (4.5-10.0)
[2025-01-22 08:26] LABS: Alanine Aminotransferase 20 U/L (6-50); Albumin Level 3.5 g/dL (3.5-5.1); Alkaline Phosphatase 50 U/L (38-126); Anion Gap 4 mmol/L (4-12); Aspartate Amino Transferase 31 U/L (17-59); Bilirubin,Total 1.3 mg/dL (0.2-1.3); Blood Urea Nitrogen 17 mg/dL (9-20); Calcium 8.7 mg/dL (8.4-10.2); Carbon Dioxide 28 mmol/L (22-30); Chloride 104 mmol/L (98-107); Estimated CRCL calculation 95 ml/min; Estimated Glomerular Filt Rate > 60; Glucose 101 mg/dL (65-110); Magnesium 2.1 mg/dL (1.6-2.3); Potassium 4.9 mmol/L (3.4-5.0); Sodium 136 mmol/L (137-145); Total Protein 6.4 g/dL (6.3-8.2)
[2025-01-22] MEDS: TAMSULOSIN HCL 0.4 MG CAPSULE PO (08:32)
[2025-01-22] MEDS: ASPIRIN 81 MG ENTERIC TABLET PO (08:32)
[2025-01-22] MEDS: LOSARTAN POTASSIUM 50 MG TABLET PO (08:32)
[2025-01-22] MEDS: ACETAMINOPHEN 325 MG TABLET 650 MG PO ×2 (08:33→15:26)
[2025-01-22] MEDS: SODIUM CHLORIDE 0.9% IV 1,000 ML 125 ML IV CONT (09:44)
--- NOTE | 2025-01-22 12:23 | PM.IMPN ---
Progress Note: A&P Assessment and Plan (1) Non-ST elevation DC (NSTEMI): Code(s): I21.4 - Non-ST elevation (NSTEMI) myocardial infarction Status: Acute (2) Coronary artery disease: Code(s): I25.10 - Atherosclerotic heart disease of [place] coronary artery without angina pectoris Status: Acute (3) Essential hypertension: Code(s): I10 - Essential (primary) hypertension Status: Acute (4) Hyperlipidemia: Code(s): E78.5 - Hyperlipidemia, unspecified Status: Acute Plan This is a 59-year-old male with coronary artery disease with history of stents in 2012 and 2017, hypertension, hyperlipidemia, and benign prostatic hyperplasia chronic emergency department via private vehicle with complaints of chest pain. Over the last several months he has had intermittent, brief, and self-resolving episodes of chest pressure, not necessarily related to exertion. 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 Today he was doing yard work (mowing the lawn and raking) when he developed central to left-sided anterior chest pressure. Over the course of the next hours the pain intensified to and almost stabbing pain which radiated to the neck, jaw, and shoulders. These symptoms are similar to those he had with previous MIs. He denies lightheadedness, sweats, anxiety, nausea, and vomiting. Of note, he has been off of aspirin and ticagrelor for the last 3 days in anticipation of an upcoming urologic procedure to remove a kidney stone. In the ED: Vital signs on arrival include a temperature of 97.6?, blood pressure 172/122, pulse 71, respiratory 19, SpO2 100% on room air. EKG showed sinus rhythm with evidence of left ventricular hypertrophy as well as possible recent anteroseptal myocardial infarction. mobile lab technician was consulted immediately and after reviewing previous EKGs, most of these findings appear chronic. His initial troponin was normal however 3 hour troponin did increase to 0.040. It was felt that this was not indicative of an ST-elevation myocardial infarction. He was started on a heparin drip and due to ongoing chest pressure, a nitroglycerin drip. He is being admitted in this setting for close monitoring and plans for possible cardiac catheterization. He underwent cardiac catheterization on 01/22/2025: Stent to mid PDA. Balloon angioplasty of the mid RCA stent for re-expansion. Patent stent ostial proximal LAD ostial diagonal and mid left circumflex artery. LV apical aneurysm noted. Echo planned for a.m.. Continue aspirin Brilinta. Continue atorvastatin and ezetimibe Coreg losartan as ordered Hypertension Hyperlipidemia Kidney stones plan for removal later this week with Dr. Anguiano. DVT prophylaxis SCDs Code status full code Subjective Date/time seen: 01/22/25 12:23 Interval history: No overnight events. Feels well. No chest pain or shortness of breath. Discussed the nursing staff. Labs reviewed. Review of Systems Review of Systems: All systems reviewed & are unremarkable except as noted in HPI and below Exam Narrative: General: Pleasant gentleman, in no acute distress HEENT:? Pupils are equal and reactive, sclera is clear, moist oral mucosa Neck:? Supple Respiratory:? Clear to auscultation bilaterally, no wheezing, adequate air entry Cardiac:? S1-S2 normal, regular rate and rhythm Abdomen:? Soft, nontender, nondistended, normoactive bowel sounds, obese Extremities:? Right groin site with no evidence of ecchymosis or hematoma, palpable pedal pulses Neuro:? Patient is awake alert, oriented, nonfocal Skin:? No skin lesions noted Psych:? Normal mentation and affect Objective Data Vital Signs Vital Signs: Vital Signs - 24 hr 01/21/25 14:07 01/21/25 14:12 01/21/25 14:15 Temperature 97.6 F Pulse Rate 71 60 75 Respiratory Rate 19 22 H 13 Blood Pressure 172/122 H 177/122 H 198/130 H Pulse Oximetry 100 100 95 Oxygen Delivery Room Air Oxygen Flow Rate 01/21/25 14:30 01/21/25 14:34 01/21/25 14:34 Temperature Pulse Rate 70 75 Respiratory Rate 13 Blood Pressure 123/76 Pulse Oximetry 99 100 Oxygen Delivery Nasal Cannula Oxygen Flow Rate 2 01/21/25 14:36 01/21/25 14:45 01/21/25 15:12 Temperature Pulse Rate 71 65 Respiratory Rate 14 14 Blood Pressure 131/92 H 125/81 Pulse Oximetry 100 100 98 Oxygen Delivery Nasal Cannula Oxygen Flow Rate 2 01/21/25 15:15 01/21/25 15:30 01/21/25 15:46 Temperature Pulse Rate 62 62 62 Respiratory Rate 13 17 13 Blood Pressure 125/83 121/77 124/85 Pulse Oximetry 98 98 100 Oxygen Delivery Oxygen Flow Rate 01/21/25 16:01 01/21/25 16:16 01/21/25 16:31 Temperature Pulse Rate 61 59 L 62 Respiratory Rate 12 14 13 Blood Pressure 125/86 128/84 134/82 Pulse Oximetry 100 100 100 Oxygen Delivery Oxygen Flow Rate 01/21/25 16:46 01/21/25 17:00 01/21/25 17:30 Temperature Pulse Rate 60 62 61 Respiratory Rate 17 12 15 Blood Pressure 141/92 H 140/102 H 179/103 H Pulse Oximetry 99 100 100 Oxygen Delivery Oxygen Flow Rate 01/21/25 18:00 01/21/25 18:21 01/21/25 18:32 Temperature Pulse Rate 67 57 L 66 Respiratory Rate 15 12 Blood Pressure 174/107 H 174/107 H 158/108 H Pulse Oximetry 100 100 Oxygen Delivery Oxygen Flow Rate 01/21/25 19:00 01/21/25 20:00 01/21/25 20:00 Temperature 97.9 F Pulse Rate 67 69 56 L Respiratory Rate 12 Blood Pressure 171/100 H 161/107 H Pulse Oximetry 100 Oxygen Delivery Oxygen Flow Rate 01/21/25 20:00 01/21/25 20:00 01/21/25 20:29 Temperature Pulse Rate 69 62 Respiratory Rate 12 Blood Pressure 161/107 H 185/95 H Pulse Oximetry 100 100 Oxygen Delivery Nasal Cannula Oxygen Flow Rate 2 01/21/25 20:43 01/21/25 22:00 01/21/25 22:00 Temperature Pulse Rate 66 59 L 66 Respiratory Rate 18 Blood Pressure 147/99 H Pulse Oximetry 100 Oxygen Delivery Oxygen Flow Rate 01/21/25 22:00 01/21/25 22:40 01/22/25 00:00 Temperature Pulse Rate 66 65 Respiratory Rate Blood Pressure 147/99 H Pulse Oximetry 100 Oxygen Delivery Nasal Cannula Oxygen Flow Rate 2 01/22/25 00:00 01/22/25 00:00 01/22/25 00:00 Temperature 98.0 F Pulse Rate 65 65 Respiratory Rate 13 Blood Pressure 138/85 138/85 Pulse Oximetry 97 97 Oxygen Delivery Oxygen Flow Rate 2 01/22/25 00:15 01/22/25 00:16 01/22/25 01:20 Temperature Pulse Rate 59 L 71 Respiratory Rate 17 Blood Pressure 134/82 Pulse Oximetry 98 98 Oxygen Delivery Nasal Cannula Autopap Oxygen Flow Rate 2 01/22/25 02:00 01/22/25 02:00 01/22/25 02:14 Temperature Pulse Rate 58 L 58 L 72 Respiratory Rate 13 Blood Pressure 140/80 140/80 Pulse Oximetry 98 Oxygen Delivery Oxygen Flow Rate 01/22/25 04:00 01/22/25 04:00 01/22/25 04:00 Temperature Pulse Rate 55 L 55 L Respiratory Rate 11 L Blood Pressure 111/68 111/68 Pulse Oximetry 96 97 Oxygen Delivery Oxygen Flow Rate 2 01/22/25 04:00 01/22/25 06:00 01/22/25 06:00 Temperature Pulse Rate 55 L 62 62 Respiratory Rate 14 Blood Pressure 121/78 Pulse Oximetry 100 Oxygen Delivery Oxygen Flow Rate 01/22/25 06:00 01/22/25 07:44 01/22/25 07:59 Temperature Pulse Rate 62 70 66 Respiratory Rate 15 17 Blood Pressure 121/78 124/88 142/89 H Pulse Oximetry 95 96 Oxygen Delivery Oxygen Flow Rate 01/22/25 08:00 01/22/25 08:00 01/22/25 08:07 Temperature Pulse Rate 69 67 Respiratory Rate 16 Blood Pressure 142/89 H 115/68 Pulse Oximetry 96 99 Oxygen Delivery Room Air Oxygen Flow Rate 01/22/25 08:14 01/22/25 08:29 01/22/25 08:30 Temperature Pulse Rate 67 59 L 64 Respiratory Rate 15 13 Blood Pressure 115/68 111/84 111/84 Pulse Oximetry 97 97 Oxygen Delivery Oxygen Flow Rate 01/22/25 08:32 01/22/25 08:45 01/22/25 08:59 Temperature Pulse Rate 68 65 57 L Respiratory Rate 16 Blood Pressure 116/80 118/78 Pulse Oximetry 99 Oxygen Delivery Oxygen Flow Rate 01/22/25 09:00 01/22/25 09:15 01/22/25 09:29 Temperature Pulse Rate 64 62 59 L Respiratory Rate 13 Blood Pressure 118/78 133/80 132/87 Pulse Oximetry 98 Oxygen Delivery Oxygen Flow Rate 01/22/25 09:30 01/22/25 10:00 01/22/25 10:29 Temperature Pulse Rate 60 50 L 56 L Respiratory Rate 12 12 Blood Pressure 132/87 116/67 123/71 Pulse Oximetry 99 100 Oxygen Delivery Oxygen Flow Rate 01/22/25 11:29 Temperature Pulse Rate 72 Respiratory Rate 13 Blood Pressure 147/95 H Pulse Oximetry 100 Oxygen Delivery Oxygen Flow Rate Intake/Output Intake/Output: Intake & Output 01/19/25 01/20/25 01/21/25 01/22/25 23:59 23:59 23:59 23:59 Intake Total 7.8 145.8 Output Total 150 400 Balance -142.2 -254.2 Meds/Results Medications: Active Medications Generic Name Dose Route Start Last Admin Trade Name Freq PRN Reason Stop Dose Admin Acetaminophen 650 mg 01/21/25 19:32 01/22/25 08:33 Acetaminophen 325 Mg Tablet PO 650 mg Q6H PRN Administration Mild Pain (1-3) or Fever Aspirin 81 mg 01/22/25 09:00 01/22/25 08:32 Aspirin 81 Mg Enteric Tablet PO 81 mg DAILY [facility] Administration Atorvastatin Calcium 80 mg 01/21/25 21:00 01/21/25 20:43 Atorvastatin 40 Mg Tablet PO 80 mg HS [facility] Administration Carvedilol 6.25 mg 01/21/25 21:00 01/22/25 08:32 Carvedilol 6.25 Mg Tablet PO 6.25 mg Q12HR [facility] Administration Ezetimibe 10 mg 01/21/25 21:00 01/21/25 20:43 Ezetimibe 10 Mg Tablet PO 10 mg HS [facility] Administration Sodium Chloride 1,000 mls @ 125 mls/hr 01/22/25 07:44 01/22/25 09:44 Normal Saline Iv IV CONT 01/22/25 15:43 125 mls/hr .Q8H ONE Administration Losartan Potassium 50 mg 01/22/25 09:00 01/22/25 08:32 Losartan Potassium 50 Mg Tablet PO 50 mg DAILY [place] Administration Morphine Sulfate 2 mg 01/21/25 19:32 Morphine Sulfate (*Crx) 2 Mg/Ml Inj IV PUSH Q4H PRN Pain Rated 7-10 Ondansetron HCl 4 mg 01/21/25 19:32 Ondansetron Inj 4 Mg/2 Ml Vial IV PUSH Q6H PRN Nausea And Vomiting Perflutren Lipid Microsphere 0 ml 01/22/25 08:12 Perflutren Lipid Microspheres 1.5 Ml Vial Diluted To 10 Ml Total Volume IV PUSH 01/25/25 08:13 ONCE PRN adequate visualization Protocol Tamsulosin HCl 0.4 mg 01/22/25 09:00 01/22/25 08:32 Tamsulosin Hcl 0.4 Mg Capsule PO 0.4 mg DAILY [facility] Administration Ticagrelor 90 mg 01/22/25 21:00 Ticagrelor 90 Mg Tablet PO Q12HR [facility] Radiology Results: ITS Impressions Chest X-Ray 01/21/25 15:05 IMPRESSION: No acute cardiopulmonary pathology. Labs Labs: Laboratory Results - last 24 hr 01/21/25 01/21/25 01/21/25 14:13 17:10 18:14 WBC 8.4 RBC 4.86 Hgb 15.0 Hct 45.4 MCV 93.4 MCH 30.9 MCHC 33.0 RDW 13.0 Plt Count 248 MPV 9.7 Immature Gran % (Auto) 0.2 Neut % (Auto) 53.6 Lymph % (Auto) 34.0 [place] % (Auto) 10.9 H Eos % (Auto) 0.8 Baso % (Auto) 0.5 Lymph # (Auto) 2.87 [place] # (Auto) 0.9 H Eos # (Auto) 0.1 Baso # (Auto) 0.0 Abs Immat Gran (auto) 0.02 Absolute Neuts (auto) 4.5 Absolute Nucleated RBC 0.000 Nucleated RBC % 0.0 PT 12.9 13.2 INR 1.0 1.0 APTT 24.4 24.3 Sodium 138 Potassium 3.8 Chloride 105 Carbon Dioxide 27 Anion Gap 6 BUN 17 Creatinine 0.83 Estim Creat Clear Calc 92 Estimated GFR > 60 Glucose 104 Calcium 9.7 Phosphorus Magnesium Total Bilirubin 1.1 AST 32 ALT 26 Alkaline Phosphatase 54 Troponin I < 0.012 0.040 H* D Total Protein 7.4 Albumin 4.2 Lipase 168 Nasal MRSA (PCR) 01/21/25 01/21/25 01/21/25 20:31 20:44 23:46 WBC RBC Hgb Hct MCV MCH MCHC RDW Plt Count MPV Immature Gran % (Auto) Neut % (Auto) Lymph % (Auto) [place] % (Auto) Eos % (Auto) Baso % (Auto) Lymph # (Auto) [place] # (Auto) Eos # (Auto) Baso # (Auto) Abs Immat Gran (auto) Absolute Neuts (auto) Absolute Nucleated RBC Nucleated RBC % PT INR APTT Sodium Potassium Chloride Carbon Dioxide Anion Gap BUN Creatinine Estim Creat Clear Calc Estimated GFR Glucose Calcium Phosphorus Magnesium Total Bilirubin AST ALT Alkaline Phosphatase Troponin I 0.236 H* D 0.629 H* D Total Protein Albumin Lipase Nasal MRSA (PCR) Not detected 01/22/25 01/22/25 01:13 08:10 WBC 7.4 RBC 4.27 L Hgb 13.3 L Hct 41.0 L MCV 96.0 MCH 31.1 MCHC 32.4 RDW 13.2 Plt Count 202 MPV 9.6 Immature Gran % (Auto) 0.1 Neut % (Auto) 61.4 Lymph % (Auto) 28.2 [place] % (Auto) 9.1 H Eos % (Auto) 0.7 Baso % (Auto) 0.5 Lymph # (Auto) 2.10 [place] # (Auto) 0.7 H Eos # (Auto) 0.1 Baso # (Auto) 0.0 Abs Immat Gran (auto) 0.01 Absolute Neuts (auto) 4.6 Absolute Nucleated RBC 0.000 Nucleated RBC % 0.0 PT INR APTT 47.0 H Sodium 136 L Potassium 4.9 Chloride 104 Carbon Dioxide 28 Anion Gap 4 BUN 17 Creatinine 0.81 Estim Creat Clear Calc 95 Estimated GFR > 60 Glucose 101 Calcium 8.7 Phosphorus 2.9 Magnesium 2.1 Total Bilirubin 1.3 AST 31 ALT 20 Alkaline Phosphatase 50 Troponin I Total Protein 6.4 Albumin 3.5 Lipase Nasal MRSA (PCR)
[2025-01-22] MEDS: ATORVASTATIN 40 MG TABLET 80 MG PO (20:07)
[2025-01-22] MEDS: TICAGRELOR 90 MG TABLET PO (20:07)
[2025-01-22] MEDS: EZETIMIBE 10 MG TABLET PO (20:07)
[2025-01-23] VITALS (12 sets, daily range): BP systolic 105–154; BP diastolic 77–103; PULSE 60–86; RESP 10–20; TEMP 36.5–36.7; O2SAT 94–99
--- NOTE | 2025-01-23 | ECHO_ITS ---
Patient Info Name: Ruben Hubbard Age: 59 years : 1965 Gender: Male Ht: 67 in Wt: 215 lbs BSA: 2.18 m2 HR: 60 bpm BP: 152 / 103 mmHg Technical Quality: Good Exam Date: 01/23/2025 7:44 AM Patient Status: I Admit Date: 01/21/2025 Exam Type: CA echo dop color flow w con Complete two-dimensional, color flow and Doppler transthoracic echocardiogram is performed with contrast to opacify the left ventricle and to improve the deliniation of the left ventricle endocardial borders. Staff Referring Physician: Vasile Goldberg MD Qa Lead: Marcelle Olson Attending Provider: Vishnu Sherwood Contrast/Agitated Saline Contrast/Ag. Saline: Definity Amount: 2.00 ml Administered By: Marcelle Olson Existing IV Access: Yes IV Access Condition: patent with no signs of infiltration Summary 1. The left ventricle is normal in size with normal systolic function. The left ventricular ejection fraction is visually estimated to be 50-55%. The inferoseptum and anteroseptum are hypokinetic. 2. The right ventricle is normal in size and systolic function. Left Ventricle The left ventricle is normal in size with normal systolic function. The left ventricular ejection fraction is visually estimated to be 50-55%. The inferoseptum and anteroseptum are hypokinetic. Right Ventricle The right ventricle is normal in size and systolic function. Left Atria The left atrium is normal size. Right Atria The right atrium is normal size. Atrial Septum The atrial septum is visually intact. Aortic Valve The aortic valve is trileaflet and opens well. There is no aortic regurgitation. Pulmonic Valve The pulmonic valve is grossly normal. There is trace pulmonic valve regurgitation. Mitral Valve The mitral valve is normal. There is no mitral regurgitation. Tricuspid Valve The tricuspid valve is normal. There is trace tricuspid regurgitation. Pericardium/Pleural There is trace pericardial effusion. Inferior Vena Cava Normal inferior vena cava with >50% collapse upon inspiration consistent with normal right atrial pressure, 3 mmHg. Aorta The aortic root at the level of the sinus of Valsalva measures 3.8 cm in diameter. Left Ventricular Outflow Tract Name Value Normal LVOT 2D LVOT Diameter 2.0 cm LVOT Doppler LVOT Peak Velocity 76 cm/s LVOT Peak Gradient 2 mmHg LVOT Mean Gradient 1 mmHg LVOT VTI 16 cm LVOT VTI/AV VTI Ratio 0.7 LVOT Stroke Volume 51 ml LVOT CO 3.2 l/min LVOT CI 1.5 l/min/m2 Pulmonic Valve Name Value Normal PV Doppler PV Peak Velocity 99 cm/s PV Peak Gradient 4 mmHg PV Regurgitation Doppler [place] Peak End Diastolic Velocity 67 cm/s Mitral Valve Name Value Normal MV Diastolic Function MV E Peak Velocity 75 cm/s MV A Peak Velocity 68 cm/s MV E/A 1.1 MV Decel Time (PW) 194 ms MV Annular TDI MV E/e' (Septal) 12.1 MV E/e' (Lateral) 7.0 MV E/e' (Average) 9.5 Tricuspid Valve Name Value Normal TV Regurgitation Doppler TR Peak Velocity 225 cm/s TR Peak Gradient 16 mmHg Estimated PAP/RSVP RA Pressure 3 mmHg <=5 PA Systolic Pressure 23 mmHg <36 RV Systolic Pressure 23 mmHg <36 TV Annular TDI TV Lateral Dipti s' Velocity 14.5 cm/s >=9.5 Aortic Valve Name Value Normal AV Doppler AV Peak Velocity 98 cm/s AV Peak Gradient 4 mmHg AV Mean Gradient 3 mmHg AV VTI 22 cm AV Area (Cont Eq VTI) 2.3 cm2 >=3.0 AV Area (Cont Eq Ben) 2.5 cm2 AV DI (Ben) 0.78 AV Regurgitation 2D LVOT Area 3.2 cm2 Ventricles Name Value Normal LV Dimensions 2D/MM IVS Diastolic Thickness (2D) 0.9 cm 0.6-1.0 LVID Diastole (2D) 5.8 cm 4.2-5.8 LVIW Diastolic Thickness (2D) 0.9 cm 0.6-1.0 LVID Systole (2D) 4.2 cm 2.5-4.0 LVOT Diameter 2.0 cm LV Mass (2D Cubed) 203.01 g 88.00-224.00 LV Mass Index (2D Cubed) 93 g/m2 49-115 Relative Wall Thickness (2D) 0.31 <=0.42 LV Fractional Shortening/Ejection Fraction 2D/MM LV Fractional Shortening (2D) 27 % 25-43 LV EF (2D [place]) 52 % LV Diastolic Volume (4C MOD) 190 ml LV EF (4C MOD) 54 % LV Diastolic Volume (2C MOD) 173 ml LV EF (2C MOD) 50 % LV Diastolic Volume (BP MOD) 187 ml 62-150 LV Diastolic Volume Index (BP MOD) 86 ml/m2 34-74 LV Systolic Volume (BP MOD) 90 ml 21-61 LV Systolic Volume Index (BP MOD) 41 ml/m2 11-31 LV EF (BP MOD) 52 % 52-72 LV Diastolic Length (4C) 8.9 cm LV Systolic Length (4C) 7.5 cm LV Stroke Volume (4C MOD) 102 ml Atria Name Value Normal LA Dimensions LA Volume (4C A-L) 66 ml LA Volume (BP A-L) 69 ml RA Dimensions RA Systolic Major [place] Length (4C) 4.7 cm 2.1-2.7 RA Area (4C) 16.7 cm2 <=18.0 Report Signatures
[2025-01-23] MEDS: ARTIFICIAL TEARS OPHTH SOLN 15 ML BOTTLE 1 DROP EACH EYE (03:22)
[2025-01-23 04:18] LABS: Hematocrit 40.9 % (42.0-52.0); Hemoglobin 13.6 g/dL (14.0-18.0); Immature Granulocyte Percent A 0.4 % (0-0.5); Lymphocytes Absolute Auto 1.68 K/mm3 (0.9-3.2); Mean Corpuscular HGB Conc 33.3 g/dl (32-36); Mean Corpuscular Hemoglobin 31.2 pg (26-34); Mean Corpuscular Volume 93.8 fl (80-100); Nucleated Red Blood Cells Absolute Auto 0.000 K/mm3 (0.0-0.012); Nucleated Red Blood Cells Perc 0.0 % (0.0-0.2); Platelet Count Result 196 k/mm3 (150-375); Red Blood Count 4.36 M/mm3 (4.6-6.20); White Blood Count 7.4 K/mm3 (4.5-10.0)
[2025-01-23 04:46] LABS: Alanine Aminotransferase 18 U/L (6-50); Albumin Level 3.6 g/dL (3.5-5.1); Alkaline Phosphatase 50 U/L (38-126); Anion Gap 6 mmol/L (4-12); Aspartate Amino Transferase 27 U/L (17-59); Bilirubin,Total 1.0 mg/dL (0.2-1.3); Blood Urea Nitrogen 13 mg/dL (9-20); Calcium 8.9 mg/dL (8.4-10.2); Carbon Dioxide 24 mmol/L (22-30); Chloride 106 mmol/L (98-107); Estimated CRCL calculation 102 ml/min; Estimated Glomerular Filt Rate > 60; Glucose 105 mg/dL (65-110); Magnesium 2.0 mg/dL (1.6-2.3); Potassium 3.8 mmol/L (3.4-5.0); Sodium 136 mmol/L (137-145); Total Protein 6.4 g/dL (6.3-8.2)
[2025-01-23] MEDS: PERFLUTREN LIPID MICROSPHERES 1.5 ML VIAL DILUTED TO 10 ML TOTAL VOLUME IV PUSH (08:10)
[2025-01-23] MEDS: TICAGRELOR 90 MG TABLET PO (08:14)
[2025-01-23] MEDS: TAMSULOSIN HCL 0.4 MG CAPSULE PO (08:14)
[2025-01-23] MEDS: ASPIRIN 81 MG ENTERIC TABLET PO (08:15)
[2025-01-23] MEDS: LOSARTAN POTASSIUM 50 MG TABLET PO (08:15)
--- NOTE | 2025-01-23 09:53 | P.PNINT_ITS ---
Progress Note: A&P Assessment and Plan (1) Non-ST elevation [place] (NSTEMI): Code(s): I21.4 - Non-ST elevation (NSTEMI) myocardial infarction Status: Acute Assessment and Plan: 01/21: Presented with chest pain, radiating to the neck, jaw and left arm. Patient has been off aspirin and ticagrelor for 3 days and patient from kidney stone removal. -patient was started on nitroglycerin infusion on admission due to chest pain. -Troponins was 0.04, 0.2, 0.6. -Patient continued to have active chest pain despite being on nitroglycerin infusion -01/22: Patient was taken to the [facility], status post stent to mid PDA, balloon angioplasty of mid RCA stent for re-expansion, patent stent in the ostial, proximal LAD, ostial diagonal and mid left circumflex artery. 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 EF of 55%, LVEDP was 12 mmHg -continue aspirin, ticagrelor, Coreg, losartan, atorvastatin and ezetimibe -cardiology following the patient -discussed with cardiology, -echocardiogram done today to evaluate for the LV aneurysm (2) Essential hypertension: Code(s): I10 - Essential (primary) hypertension Status: Acute Assessment and Plan: Continue Coreg and losartan (3) Hyperlipidemia: Code(s): E78.5 - Hyperlipidemia, unspecified Status: Acute Assessment and Plan: Continue ezetimibe and atorvastatin Plan DVT prophylaxis: Status post cardiac catheterization Stress ulcer prophylaxis: Not indicated Nutrition: Heart healthy diet Code Status: Full code Critical Care Time Spent: 31 minutes Due to a high probability of clinically significant, life threatening deterioration, the patient required my highest level of preparedness to i ntervene emergently and I personally spent this critical care time directly and personally managing the patient. This critical care time included obtaining a history; examining the patient; pulse oximetry; ordering and review of studies; arranging urgent treatment with development of a management plan; evaluation of patient's response to treatment; frequent reassessment; and discussions with other providers. It was exclusive of separately billable procedures and treating other patients and teaching time. Please see Assessment and Plan section and the rest of the note for further information on patient assessment and treatment This dictation may have been done utilizing a voice recognition system. Attempts have been made to correct errors. However, there may be uncorrected grammatical, spelling, and recognitions errors present. Subjective Date/time seen: 01/23/25 09:53 Interval history: Reason for consult: Chest pain, NSTEMI, status post PTCA/PCI with FAUSTINA x1 to mid PDA,, balloon angioplasty of the mid RCA stent for re-expansion, LV gram showed apical aneurysm 01/23/2025: Patient seen and examined the ICU, is awake, alert, oriented. Denies any chest pain, shortness of breath, abdominal pain, nausea, vomiting at this time. Hemodynamically stable Review of Systems Review of Systems: All systems reviewed & are unremarkable except as noted in HPI and below Exam Narrative: General: Pleasant gentleman, in no acute distress HEENT:? Pupils are equal and reactive, sclera is clear, moist oral mucosa Neck:? Supple Respiratory:? Clear to auscultation bilaterally, no wheezing, adequate air entry Cardiac:? S1-S2 normal, regular rate and rhythm Abdomen:? Soft, nontender, nondistended, normoactive bowel sounds, obese Extremities:? Right groin site with no evidence of ecchymosis or hematoma, palpable pedal pulses Neuro:? Patient is awake alert, oriented, nonfocal Skin:? No skin lesions noted Psych:? Normal mentation and affect Objective Data Vital Signs Vital Signs: Vital Signs - 24 hr 01/22/25 10:00 01/22/25 10:00 01/22/25 10:29 Temperature Pulse Rate 50 L 50 L 56 L Respiratory Rate 12 12 Blood Pressure 116/67 123/71 Pulse Oximetry 99 100 Oxygen Delivery Oxygen Flow Rate 01/22/25 11:29 01/22/25 12:00 01/22/25 12:00 Temperature 98.4 F Pulse Rate 72 64 Respiratory Rate 13 15 Blood Pressure 147/95 H 130/84 Pulse Oximetry 100 100 97 Oxygen Delivery Room Air Oxygen Flow Rate 01/22/25 12:00 01/22/25 12:29 01/22/25 13:29 Temperature Pulse Rate 69 64 64 Respiratory Rate 17 14 Blood Pressure 142/80 H 105/74 Pulse Oximetry 99 97 Oxygen Delivery Oxygen Flow Rate 01/22/25 14:00 01/22/25 14:00 01/22/25 16:00 Temperature Pulse Rate 70 70 72 Respiratory Rate 16 Blood Pressure 130/83 Pulse Oximetry 98 Oxygen Delivery Oxygen Flow Rate 01/22/25 16:00 01/22/25 16:00 01/22/25 18:00 Temperature 98.3 F Pulse Rate 62 89 Respiratory Rate 15 Blood Pressure 140/89 Pulse Oximetry 98 98 Oxygen Delivery Room Air Oxygen Flow Rate 01/22/25 18:00 01/22/25 20:00 01/22/25 20:00 Temperature 98.0 F Pulse Rate 66 76 69 Respiratory Rate 13 10 L Blood Pressure 129/88 144/85 H Pulse Oximetry 96 97 Oxygen Delivery Oxygen Flow Rate 01/22/25 20:00 01/22/25 20:07 01/22/25 22:00 Temperature Pulse Rate 70 67 Respiratory Rate Blood Pressure Pulse Oximetry 97 Oxygen Delivery Room Air Oxygen Flow Rate 01/22/25 22:00 01/22/25 23:50 01/23/25 00:00 Temperature 98.1 F Pulse Rate 67 64 62 Respiratory Rate 15 10 L Blood Pressure 143/84 H 123/91 H Pulse Oximetry 97 98 98 Oxygen Delivery Autopap Oxygen Flow Rate 01/23/25 00:00 01/23/25 00:00 01/23/25 01:15 Temperature Pulse Rate 61 60 Respiratory Rate Blood Pressure Pulse Oximetry 97 97 Oxygen Delivery CPAP Oxygen Flow Rate 2 01/23/25 02:00 01/23/25 02:00 01/23/25 02:20 Temperature Pulse Rate 62 62 61 Respiratory Rate 11 L Blood Pressure 129/83 Pulse Oximetry 98 97 Oxygen Delivery Autopap Oxygen Flow Rate 01/23/25 04:00 01/23/25 04:00 01/23/25 04:00 Temperature 98.0 F Pulse Rate 75 64 Respiratory Rate 16 Blood Pressure 139/88 Pulse Oximetry 95 98 Oxygen Delivery CPAP Oxygen Flow Rate 2 01/23/25 06:00 01/23/25 06:00 01/23/25 07:27 Temperature 97.7 F Pulse Rate 61 61 69 Respiratory Rate 12 20 Blood Pressure 152/103 H 117/94 H Pulse Oximetry 95 98 Oxygen Delivery Oxygen Flow Rate 01/23/25 08:00 01/23/25 08:00 01/23/25 08:14 Temperature Pulse Rate 86 66 75 Respiratory Rate 20 Blood Pressure Pulse Oximetry 99 Oxygen Delivery Room Air Oxygen Flow Rate Intake/Output Intake/Output: Intake & Output 01/20/25 01/21/25 01/22/25 01/23/25 23:59 23:59 23:59 23:59 Intake Total 7.8 1625.8 840 Output Total 150 650 300 Balance -142.2 975.8 540 Meds/Results Medications: Active Medications Generic Name Dose Route Start Last Admin Trade Name Freq PRN Reason Stop Dose Admin Acetaminophen 650 mg 01/21/25 19:32 01/22/25 15:26 Acetaminophen 325 Mg Tablet PO 650 mg Q6H PRN Administration Mild Pain (1-3) or Fever Artificial Tears 1 drop 01/23/25 01:18 01/23/25 03:22 Artificial Tears Ophth Soln 15 Ml Bottle EACH EYE 1 drop QID PRN Administration Dry Eye(s) Aspirin 81 mg 01/22/25 09:00 01/23/25 08:15 Aspirin 81 Mg Enteric Tablet PO 81 mg DAILY [place] Administration Atorvastatin Calcium 80 mg 01/21/25 21:00 01/22/25 20:07 Atorvastatin 40 Mg Tablet PO 80 mg HS [facility] Administration Carvedilol 6.25 mg 01/21/25 21:00 01/23/25 08:14 Carvedilol 6.25 Mg Tablet PO 6.25 mg Q12HR [place] Administration Ezetimibe 10 mg 01/21/25 21:00 01/22/25 20:07 Ezetimibe 10 Mg Tablet PO 10 mg HS [place] Administration Losartan Potassium 50 mg 01/22/25 09:00 01/23/25 08:15 Losartan Potassium 50 Mg Tablet PO 50 mg DAILY [place] Administration Morphine Sulfate 2 mg 01/21/25 19:32 Morphine Sulfate (*Crx) 2 Mg/Ml Inj IV PUSH Q4H PRN Pain Rated 7-10 Ondansetron HCl 4 mg 01/21/25 19:32 Ondansetron Inj 4 Mg/2 Ml Vial IV PUSH Q6H PRN Nausea And Vomiting Perflutren Lipid Microsphere 0 ml 01/22/25 08:12 Perflutren Lipid Microspheres 1.5 Ml Vial Diluted To 10 Ml Total Volume IV PUSH 01/25/25 08:13 ONCE PRN adequate visualization Protocol Tamsulosin HCl 0.4 mg 01/22/25 09:00 01/23/25 08:14 Tamsulosin Hcl 0.4 Mg Capsule PO 0.4 mg DAILY [place] Administration Ticagrelor 90 mg 01/22/25 21:00 01/23/25 08:14 Ticagrelor 90 Mg Tablet PO 90 mg Q12HR [place] Administration Radiology Results: ITS Impressions Chest X-Ray 01/21/25 15:05 IMPRESSION: No acute cardiopulmonary pathology. Labs Labs: Laboratory Results - last 24 hr 01/23/25 04:08 WBC 7.4 RBC 4.36 L Hgb 13.6 L Hct 40.9 L MCV 93.8 MCH 31.2 MCHC 33.3 RDW 13.2 Plt Count 196 MPV 9.7 Immature Gran % (Auto) 0.4 Neut % (Auto) 64.6 Lymph % (Auto) 22.7 [place] % (Auto) 11.1 H Eos % (Auto) 0.9 Baso % (Auto) 0.3 Lymph # (Auto) 1.68 [place] # (Auto) 0.8 H Eos # (Auto) 0.1 Baso # (Auto) 0.0 Abs Immat Gran (auto) 0.03 Absolute Neuts (auto) 4.8 Absolute Nucleated RBC 0.000 Nucleated RBC % 0.0 Sodium 136 L Potassium 3.8 Chloride 106 Carbon Dioxide 24 Anion Gap 6 BUN 13 Creatinine 0.75 Estim Creat Clear Calc 102 Estimated GFR > 60 Glucose 105 Calcium 8.9 Phosphorus 3.3 Magnesium 2.0 Total Bilirubin 1.0 AST 27 ALT 18 Alkaline Phosphatase 50 Total Protein 6.4 Albumin 3.6 Quality VTE Prophylaxis VTE prophylaxis: pharmacologic ordered (on heparin drip)
--- NOTE | 2025-01-23 10:40 | PM.PNCARD ---
Progress Note: A&P Assessment and Plan (1) Non-ST elevation [place] (NSTEMI): Code(s): I21.4 - Non-ST elevation (NSTEMI) myocardial infarction Status: Acute Plan -continue aspirin and Brilinta -risk factor modification for CAD -obtain an echocardiogram to assess the LV apical aneurysm. Subjective Date/time seen: 01/23/25 10:40 Review of Systems Constitutional: Constitutional: Denies chills, Denies fever(s) and Denies poor appetite Eyes: Eyes: Denies eye discharge, Denies loss of vision, Denies eye pain and Denies photophobia ENT: Denies dizziness, Denies epistaxis, Denies nasal congestion and Denies sore throat Cardiovascular: Cardiovascular: Reports chest pain, Denies syncope, Denies pedal edema, Denies leg edema, Denies palpitations, Denies dyspnea, Denies dyspnea on exertion and Denies orthopnea Respiratory: Respiratory: Denies cough, Denies dyspnea, Denies dyspnea on exertion and Denies wheezing Gastrointestinal: Gastrointestinal: Denies abdominal pain, Denies diarrhea, Denies nausea and Denies vomiting Genitourinary: Genitourinary: Denies hematuria, Denies genital lesions and Denies dysuria Musculoskeletal: Musculoskeletal: Denies arthralgias, Denies joint swelling and Denies numbness Integumentary/Breasts: Skin/Breast: Denies pruritus and Denies rash Neurologic: Denies dizziness, Denies syncope, Denies loss of vision and Denies numbness Psychiatric: Psychiatric: Denies anxiety and Denies depression Endocrine: Endocrine: Denies cold intolerance, Denies heat intolerance and Denies palpitations Hematologic/Lymphatic: Hematologic/Lymphatic: Denies easy bleeding and Denies easy bruising Allergic/Immunologic: Allergic/Immunologic: Denies urticaria and Denies wheezing Exam Const: General: cooperative, comfortable, no acute distress, alert, awake and well nourished Nutritional Appearance: well nourished Orientation/consciousness: patient oriented x3 HENMT: Head: normal to inspection, normocephalic and atraumatic Ears: hearing grossly normal bilaterally Face/Nose/Sinus: Normal external nose present, Normal nares present, no nasal discharge noted, normal facial exam and No erythema Face and sinus: normal facial exam and no erythema Mouth: No drooling and No restricted motion Throat: uvula midline Eyes: General: appearance normal, both eyes and all related structures Alignment and Position: position normal Conjunctivae: conjunctivae normal Sclera: sclerae normal Direct Ophthalmoscopy: No photophobia Neck: Neck: normal visual inspection and no JVD Thyroid: thyroid normal Carotids: no bruits Lymphatic: lymphedema not noted Chest: Chest palpation & inspection: normal inspection of the chest and no tenderness Resp: Effort & Inspection: normal respiratory effort and no nasal flaring Auscultation: clear to auscultation bilaterally, no crackles, no rales and no wheezes Cardio: Jugular venous distension: no JVD Rate: regular rate Rhythm: regular rhythm Heart sounds: S1 normal heart sound present, S2 normal heart sound present, no gallops, no murmurs and no rubs GI: Inspection: non-distended Auscultation: normal bowel sounds Rectal Exam: deferred : General: No no CVA tenderness Back/Spine/Pelvis: Back: No no CVA tenderness Cervical Spine: cervical ROM normal Skin: General skin exam: normal color and rashes and/or lesions noted Neuro: General: patient oriented x3 Cranial nerves: No CN's II-XII intact bilaterally Speech: normal speech Motor exam (neuro): no tremors Extrem: General: normal to inspection and pedal edema present Psych: Appearance: grossly normal and well kempt Speech and movement: Normal speech and movement present Affect: normal affect Objective Data Vital Signs Vital Signs: Vital Signs - 24 hr 01/22/25 11:29 01/22/25 12:00 01/22/25 12:00 Temperature 36.9 C Pulse Rate 72 64 Respiratory Rate 13 15 Blood Pressure 147/95 H 130/84 Pulse Oximetry 100 100 97 Oxygen Delivery Room Air Oxygen Flow Rate 01/22/25 12:00 01/22/25 12:29 01/22/25 13:29 Temperature Pulse Rate 69 64 64 Respiratory Rate 17 14 Blood Pressure 142/80 H 105/74 Pulse Oximetry 99 97 Oxygen Delivery Oxygen Flow Rate 01/22/25 14:00 01/22/25 14:00 01/22/25 16:00 Temperature Pulse Rate 70 70 72 Respiratory Rate 16 Blood Pressure 130/83 Pulse Oximetry 98 Oxygen Delivery Oxygen Flow Rate 01/22/25 16:00 01/22/25 16:00 01/22/25 18:00 Temperature 36.8 C Pulse Rate 62 89 Respiratory Rate 15 Blood Pressure 140/89 Pulse Oximetry 98 98 Oxygen Delivery Room Air Oxygen Flow Rate 01/22/25 18:00 01/22/25 20:00 01/22/25 20:00 Temperature 36.7 C Pulse Rate 66 76 69 Respiratory Rate 13 10 L Blood Pressure 129/88 144/85 H Pulse Oximetry 96 97 Oxygen Delivery Oxygen Flow Rate 01/22/25 20:00 01/22/25 20:07 01/22/25 22:00 Temperature Pulse Rate 70 67 Respiratory Rate Blood Pressure Pulse Oximetry 97 Oxygen Delivery Room Air Oxygen Flow Rate 01/22/25 22:00 01/22/25 23:50 01/23/25 00:00 Temperature 36.7 C Pulse Rate 67 64 62 Respiratory Rate 15 10 L Blood Pressure 143/84 H 123/91 H Pulse Oximetry 97 98 98 Oxygen Delivery Autopap Oxygen Flow Rate 01/23/25 00:00 01/23/25 00:00 01/23/25 01:15 Temperature Pulse Rate 61 60 Respiratory Rate Blood Pressure Pulse Oximetry 97 97 Oxygen Delivery CPAP Oxygen Flow Rate 2 01/23/25 02:00 01/23/25 02:00 01/23/25 02:20 Temperature Pulse Rate 62 62 61 Respiratory Rate 11 L Blood Pressure 129/83 Pulse Oximetry 98 97 Oxygen Delivery Autopap Oxygen Flow Rate 01/23/25 04:00 01/23/25 04:00 01/23/25 04:00 Temperature 36.7 C Pulse Rate 75 64 Respiratory Rate 16 Blood Pressure 139/88 Pulse Oximetry 95 98 Oxygen Delivery CPAP Oxygen Flow Rate 2 01/23/25 06:00 01/23/25 06:00 01/23/25 07:27 Temperature 36.5 C Pulse Rate 61 61 69 Respiratory Rate 12 20 Blood Pressure 152/103 H 117/94 H Pulse Oximetry 95 98 Oxygen Delivery Oxygen Flow Rate 01/23/25 08:00 01/23/25 08:00 01/23/25 08:14 Temperature Pulse Rate 86 66 75 Respiratory Rate 20 Blood Pressure Pulse Oximetry 99 Oxygen Delivery Room Air Oxygen Flow Rate 01/23/25 10:00 Temperature Pulse Rate 71 Respiratory Rate 16 Blood Pressure 105/77 Pulse Oximetry 98 Oxygen Delivery Oxygen Flow Rate Intake/Output Intake/Output: Intake & Output 01/20/25 01/21/25 01/22/25 01/23/25 23:59 23:59 23:59 23:59 Intake Total 7.8 1625.8 840 Output Total 150 650 300 Balance -142.2 975.8 540 Meds/Results Medications: Active Medications Generic Name Dose Route Start Last Admin Trade Name Freq PRN Reason Stop Dose Admin Acetaminophen 650 mg 01/21/25 19:32 01/22/25 15:26 Acetaminophen 325 Mg Tablet PO 650 mg Q6H PRN Administration Mild Pain (1-3) or Fever Artificial Tears 1 drop 01/23/25 01:18 01/23/25 03:22 Artificial Tears Ophth Soln 15 Ml Bottle EACH EYE 1 drop QID PRN Administration Dry Eye(s) Aspirin 81 mg 01/22/25 09:00 01/23/25 08:15 Aspirin 81 Mg Enteric Tablet PO 81 mg DAILY [place] Administration Atorvastatin Calcium 80 mg 01/21/25 21:00 01/22/25 20:07 Atorvastatin 40 Mg Tablet PO 80 mg HS [place] Administration Carvedilol 6.25 mg 01/21/25 21:00 01/23/25 08:14 Carvedilol 6.25 Mg Tablet PO 6.25 mg Q12HR [place] Administration Ezetimibe 10 mg 01/21/25 21:00 01/22/25 20:07 Ezetimibe 10 Mg Tablet PO 10 mg HS [place] Administration Losartan Potassium 50 mg 01/22/25 09:00 01/23/25 08:15 Losartan Potassium 50 Mg Tablet PO 50 mg DAILY [place] Administration Morphine Sulfate 2 mg 01/21/25 19:32 Morphine Sulfate (*Crx) 2 Mg/Ml Inj IV PUSH Q4H PRN Pain Rated 7-10 Ondansetron HCl 4 mg 01/21/25 19:32 Ondansetron Inj 4 Mg/2 Ml Vial IV PUSH Q6H PRN Nausea And Vomiting Perflutren Lipid Microsphere 0 ml 01/22/25 08:12 Perflutren Lipid Microspheres 1.5 Ml Vial Diluted To 10 Ml Total Volume IV PUSH 01/25/25 08:13 ONCE PRN adequate visualization Protocol Tamsulosin HCl 0.4 mg 01/22/25 09:00 01/23/25 08:14 Tamsulosin Hcl 0.4 Mg Capsule PO 0.4 mg DAILY [place] Administration Ticagrelor 90 mg 01/22/25 21:00 01/23/25 08:14 Ticagrelor 90 Mg Tablet PO 90 mg Q12HR [place] Administration Radiology Results: ITS Impressions Chest X-Ray 01/21/25 15:05 IMPRESSION: No acute cardiopulmonary pathology. Labs Labs: Laboratory Results - last 24 hr 01/23/25 04:08 WBC 7.4 RBC 4.36 L Hgb 13.6 L Hct 40.9 L MCV 93.8 MCH 31.2 MCHC 33.3 RDW 13.2 Plt Count 196 MPV 9.7 Immature Gran % (Auto) 0.4 Neut % (Auto) 64.6 Lymph % (Auto) 22.7 [place] % (Auto) 11.1 H Eos % (Auto) 0.9 Baso % (Auto) 0.3 Lymph # (Auto) 1.68 [place] # (Auto) 0.8 H Eos # (Auto) 0.1 Baso # (Auto) 0.0 Abs Immat Gran (auto) 0.03 Absolute Neuts (auto) 4.8 Absolute Nucleated RBC 0.000 Nucleated RBC % 0.0 Sodium 136 L Potassium 3.8 Chloride 106 Carbon Dioxide 24 Anion Gap 6 BUN 13 Creatinine 0.75 Estim Creat Clear Calc 102 Estimated GFR > 60 Glucose 105 Calcium 8.9 Phosphorus 3.3 Magnesium 2.0 Total Bilirubin 1.0 AST 27 ALT 18 Alkaline Phosphatase 50 Total Protein 6.4 Albumin 3.6
--- NOTE | 2025-01-23 11:08 | IVDEFINITY ---
Prior to administration of IV Definity the patient was educated on the risks and benefits of the imaging enhancing agent including potential adverse side effects. The patient verbalized understanding. Allergies were verified. No exclusion criteria were identified and at least one of the following inclusion criteria were met: 1) physician request, 2) patient technically difficult to image (per the [place] [employer] guidelines of two or more segments not discernable within the apical view), or 3) questionable left ventricular function. ?
--- NOTE | 2025-01-23 14:30 | PM.DS ---
DS: Admitting Diagnosis Discharge Date 01/23/2025 <SHIVAM Duenas - Last Filed: 01/26/25 14:51> Admitting Diagnosis Chest pain <SHIVAM Duenas - Last Filed: 01/26/25 14:51> DS: Discharge Diagnosis Discharge Diagnosis (1) Non-ST elevation VA (NSTEMI): Code(s): I21.4 - Non-ST elevation (NSTEMI) myocardial infarction <SHIVAM Duenas - Last Filed: 01/26/25 14:51> Status: Acute <SHIVAM Duenas - Last Filed: 01/26/25 14:51> Assessment and Plan: -No chest pain -continue DAPT with ASA indefinitely and Brilinta for at least 1 year. -risk factor modification for CAD -Echo showed normal LV systolic function with hypokinesis of the inferoseptum and anteroseptum. -No LV apical thrombus visualized on echocardiogram. Discussed with Dr. Walker. Will obtain short interval echo as an outpatient to reassess -Cardiac rehab -OK for discharge today from my perspective <SHIVAM Duenas - Last Filed: 01/26/25 14:51> DS: Summary Hospital Course Hospital Course: 59-year-old man who presented with chest pain found to have non ST elevation VA underwent cardiac catheterization found to have obstructive coronary artery disease for which PCI was performed (stent to mid PDA and balloon angioplasty of the mid RCA stent for re- expansion). Findings of angiogram are as follows: 1- left coronary artery is a large artery that divides into large LAD, large circumflex artery. Left main is free of disease. 2- left anterior descending artery is a large artery that runs and wraps around the apex. Has a patent stent covering the ostium and proximal portion. Also a medium-sized diagonal branch has stent covering ostium. Widely patent. 3- left circumflex artery is a large artery and codominant right knee patent stent in the mid segment. 4- right coronary artery is very large artery. Has a stent in the mid segment with 30% InStent restenosis. PDA in the mid segment 80%. 5- LVEDP was 12 mm Hg and no gradient across aortic valve. 6- opening arterial pressure was 118/76 and closing pressure was 117/69 7- right femoral artery angiogram shows no significant disease in the right common femoral artery. 8-intravascular ultrasound of the RCA showed that the PDA diameter 3 mm. Proximal RCA diameter almost 5 mm and distal to the mid stent 4.5 mm. The stent strut size measured 3.5 mm. 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 Ejection fraction 55%. Recovered without complication. Echo showed no evidence of apical aneurysm. Discharging home today in stable condition. <SHIVAM Duenas - Last Filed: 01/26/25 14:51> 59-year-old man who presented with chest pain found to have non ST elevation VA underwent cardiac catheterization found to have obstructive coronary artery disease for which PCI was performed. <Dmitri Higgins MD - Last Filed: 01/26/25 14:28> Time Spent with Patient Time attestation: Total time spent providing and/or coordinating discharge services: <SHIVAM Duenas - Last Filed: 01/26/25 14:51> Exam Const: General: comfortable, no acute distress, alert and awake <SHIVAM Duenas - Last Filed: 01/26/25 14:51> Orientation/consciousness: patient oriented x3 <SHIVAM Duenas - Last Filed: 01/26/25 14:51> HENMT: Head: normal to inspection <SHIVAM Duenas - Last Filed: 01/26/25 14:51> Eyes: General: appearance normal, both eyes and all related structures <SHIVAM Duenas - Last Filed: 01/26/25 14:51> Pupils: Equal, round and reactive pupils present <SHIVAM Duenas - Last Filed: 01/26/25 14:51> Neck: Neck: normal visual inspection, supple and no JVD <SHIVAM Duenas - Last Filed: 01/26/25 14:51> Carotids: normal carotid upstroke <SHIVAM Duenas - Last Filed: 01/26/25 14:51> Resp: Effort & Inspection: normal respiratory effort <SHIVAM Duenas - Last Filed: 01/26/25 14:51> Auscultation: clear to auscultation bilaterally <SHIVAM Duenas - Last Filed: 01/26/25 14:51> Cardio: Rate: regular rate <SHIVAM Duenas - Last Filed: 01/26/25 14:51> Rhythm: regular rhythm <RUSTAM Duenas - Last Filed: 01/26/25 14:51> Heart sounds: S1 normal heart sound present, S2 normal heart sound present and no murmurs <SHIVAM Duenas - Last Filed: 01/26/25 14:51> GI: Auscultation: normal bowel sounds <SHIVAM Duenas - Last Filed: 01/26/25 14:51> Skin: General skin exam: normal color <SHIVAM Duenas - Last Filed: 01/26/25 14:51> Neuro: General: patient oriented x3 <SHIVAM Duenas - Last Filed: 01/26/25 14:51> Cranial nerves: Yes Equal, round and reactive pupils present <SHIVAM Duenas Last Filed: 01/26/25 14:51> Extrem: General: normal to inspection <SHIVAM Duenas - Last Filed: 01/26/25 14:51> Other: no edema. good pulses <SHIVAM Duenas - Last Filed: 01/26/25 14:51> Psych: Appearance: grossly normal <SHIVAM Duenas - Last Filed: 01/26/25 14:51> Mental Status: mental status grossly normal <SHIVAM Duenas - Last Filed: 01/26/25 14:51> DS: Data Data Completed and Pending Labs on day of discharge: Labs from last 24 hours 01/23/25 04:08 WBC 7.4 RBC 4.36 L Hgb 13.6 L Hct 40.9 L MCV 93.8 MCH 31.2 MCHC 33.3 RDW 13.2 Plt Count 196 MPV 9.7 Immature Gran % (Auto) 0.4 Neut % (Auto) 64.6 Lymph % (Auto) 22.7 Caswell % (Auto) 11.1 H Eos % (Auto) 0.9 Baso % (Auto) 0.3 Lymph # (Auto) 1.68 [place]well # (Auto) 0.8 H Eos # (Auto) 0.1 Baso # (Auto) 0.0 Abs Immat Gran (auto) 0.03 Absolute Neuts (auto) 4.8 Absolute Nucleated RBC 0.000 Nucleated RBC % 0.0 Sodium 136 L Potassium 3.8 Chloride 106 Carbon Dioxide 24 Anion Gap 6 BUN 13 Creatinine 0.75 Estim Creat Clear Calc 102 Estimated GFR > 60 Glucose 105 Calcium 8.9 Phosphorus 3.3 Magnesium 2.0 Total Bilirubin 1.0 AST 27 ALT 18 Alkaline Phosphatase 50 Total Protein 6.4 Albumin 3.6 <SHIVAM Duenas - Last Filed: 01/26/25 14:51> Discharge Plan Discharge Attending physician on discharge: Dmitri Higgisn <SHIVAM Duenas - Last Filed: 01/26/25 14:51> Dmitri Higgins <Dmitri Higgins MD - Last Filed: 01/26/25 14:28> Consulting providers: José Miguel Dsouza; Erika Bryant; Dmitri Higgins; Nichole Walker; Sabrina Navas; Alli Oliveira <SHIVAM Duenas - Last Filed: 01/26/25 14:51> Discharging Clinician: Nathalie Valverde <SHIVAM Duenas - Last Filed: 01/26/25 14:51> Nathalie Valverde <Dmitri Higgins MD - Last Filed: 01/26/25 14:28> Patient Disposition: Home <SHIVAM Duenas - Last Filed: 01/26/25 14:51> Activity: other - see discharge instructions <SHIVAM Duenas - Last Filed: 01/26/25 14:51> other - see discharge instructions <Dmitri Higgins MD - Last Filed: 01/26/25 14:28> Diet: heart healthy <SHIVAM Duenas - Last Filed: 01/26/25 14:51> heart healthy <Dmitri Higgins MD - Last Filed: 01/26/25 14:28> Wound Care Instructions: other - see discharge instructions <SHIVAM Duenas - Last Filed: 01/26/25 14:51> other - see discharge instructions <Dmitri Higgins MD - Last Filed: 01/26/25 14:28> Discharge Instructions: [facility] [address] [place] [address] DISCHARGE INSTRUCTIONS - POST PCI Activity Restriction 1. No Driving for 24 hours 2. No lifting, pushing or pulling more than 10 LBS for 1 week 3. No strenuous activity or exercising for 1 week 4. Shower after 24 hours, do not soak in any water such as hot tubs or bath tubs Wound Care 1. Remove dressing 24 hours after your procedure prior to showering 2. Lather soap and water to puncture site and rinse then pat dry 3. You may apply a new band aid to the site and remove aft er 24 hours then leave open to air 4. Monitor daily for redness, drainage, mild swelling and fever Report IMMEDIATELY: CALL 911 1. If you experience any swelling or bleeding from puncture site. Hold firm pressure over the puncture site until help arrives 2. If you experience any new discomfort in you back, neck, jaw, stomach or arm. Any shortness of breath, nausea, vomiting, or cold sweats 3. If you experience any swelling, tenderness, or numbness in your leg or if your leg becomes cold or has color changes. Follow Up 1. Follow your doctors discharge instructions on resuming your medications. Some medications will need to be held after your procedure 2. Follow up with the office to schedule your next appointment with your doctor 3. Drink plenty of water following your procedure, avoid alcohol If you received a stent or a closure device keep your card with you such as in your wallet. Present your card to your doctor appointments to update your health care information. *For any other questions please call the office at [phone]. Office hours are 8AM 4:30PM Thursday through Thursday. Medications DO NOT STOP YOUR MEDICATIONS ONLY YOUR MONONITROTOLUENE OPERATOR CAN STOP THE FOLLOWING MEDICATIONS - PLEASE CALL THE OFFICE WITH QUESTIONS. *Aspirin *Ticagrelor (Brilinta) *Atorvastatin *Losartan *Carvedilol Important Reminders 1. Keep your stent card in your wallet at all times 2. Follow a heart healthy diet paying extra attention to cholesterol and fats. 3. Stay hydrated. 4. If you have chest pain unrelieved by rest or nitroglycerin (if prescribed) call 911 immediately. 5. If you miss one dose of Brilinta (if prescribed) take a tablet at the next time due. If you miss 2 doses take a tablet when you remember and resume at the next time due. *For any other questions please call the office at [phone]. Office hours are 8AM 4:30PM Thursday through Thursday. <SHIVAM Duenas - Last Filed: 01/26/25 14:51> Patient Instructions: Antibiotic Form, Angina (DC), Heart Attack (GEN) <SHIVAM Duenas - Last Filed: 01/26/25 14:51> Patient Language: Portuguese <SHIVAM Duenas - Last Filed: 01/26/25 14:51> Stand Alone Forms: General Discharge Information, Work/School Release IP <SHIVAM Duenas - Last Filed: 01/26/25 14:51> Follow-up/Referrals: Nichole Walker MD [Physician] - (Keep scheduled appointments for follow up with Keesha Robertson and for echo) <SHIVAM Duenas - Last Filed: 01/26/25 14:51> Discharge Medications: New ticagrelor [Brilinta] 90 mg Tablet 90 mg PO Q12HR 30 Days Qty: 60 0RF ticagrelor [Brilinta] 90 mg tablet 90 mg PO Q12H Qty: 60 11RF Continued losartan 50 mg tablet 50 mg PO DAILY tadalafil 20 mg Tablet 20 mg PO DAILY PRN (Reason: sexual activity) aspirin [Adult Aspirin Regimen] 81 mg tablet,delayed release (DR/EC) 81 mg PO DAILY Patient Comments: carvedilol 6.25 mg tablet 6.25 mg PO Q12H ezetimibe 10 mg tablet 10 mg PO HS atorvastatin [Lipitor] 80 mg tablet 80 mg PO HS tamsulosin [Flomax] 0.4 mg capsule 0.4 mg PO DAILY Qty: 7 0RF Discontinued ticagrelor [Brilinta] 60 mg Tablet 60 mg PO Q12H <SHIVAM Duenas - Last Filed: 01/26/25 14:51> Date of admission: 01/21/25 18:09 <SHIVAM Duenas - Last Filed: 01/26/25 14:51> Primary Care Provider: PHYSICIAN NOT ON STAFF,NONSTAFF <SHIVAM Duenas - Last Filed: 01/26/25 14:51> Admitting Provider: Vishnu Sherwood <SHIVAM Duenas - Last Filed: 01/26/25 14:51> Attending physician on admission: Nathalie Valverde <SHIVAM Duenas - Last Filed: 01/26/25 14:51> Condition: Stable <SHIVAM Duenas - Last Filed: 01/26/25 14:51>
--- NOTE | 2025-01-23 15:22 | PC.NURSE ---
Reviewed all discharge instructions with patient including current medication list, last dose and next dose due. Verbalizes understanding related to all instructions. IVs removed and patient getting self dressed at this time.
== END 2025-01-23 15:35 | disposition home or self-care (01) | DRG 322 ==
LOC: ANHED 18:06 → ANHICU 18:39
PROVIDERS: Emergency Medicine; Internal Medicine; Internal Medicine Cardiovascular Disease; Physician Assistant; Admitting Provider Internal Medicine; Emergency Provider Emergency Medicine; Visit Provider Nurse Practitioner
PROC: 4A023N7 Measurement of Cardiac Sampling and Pressure, Left Heart, Percutaneous Approach (ICD-10-PCS; CPT 93452; principal; 2025-01-22 05:55)
PROC: 027034Z Dilation of Coronary Artery, One Artery with Drug-eluting Intraluminal Device, Percutaneous Approach (ICD-10-PCS; 2025-01-22 05:55)
PROC: 027034Z Dilation of Coronary Artery, One Artery with Drug-eluting Intraluminal Device, Percutaneous Approach (ICD-10-PCS; 2025-01-22 05:55)
PROC: 027034Z Dilation of Coronary Artery, One Artery with Drug-eluting Intraluminal Device, Percutaneous Approach (ICD-10-PCS; 2025-01-22 05:55)
DX: I21.4 Non-ST elevation (NSTEMI) myocardial infarction (principal); T82.855A Stenosis of coronary artery stent, initial encounter; I25.10 Atherosclerotic heart disease of native coronary artery without angina pectoris; Z95.5 Presence of coronary angioplasty implant and graft; I10 Essential (primary) hypertension; E78.5 Hyperlipidemia, unspecified; N20.0 Calculus of kidney; Z79.82 Long term (current) use of aspirin; Z79.02 Long term (current) use of antithrombotics/antiplatelets
CPT/HCPCS: 36415; 71046; 80053; 83690; 83735; 84100; 84484; 85025; 85610; 85730; 87641; 92978; 93005; 93458; 96365; 99291; A9270; C1725; C1753; C1760; C1769; C1874; C1887; C1894; C7532; C8929; C9600; G0269; J0583; J1327; J1644; J2003; J2250; J2305; J3010; J7030; J7040; Q9957

== ENCOUNTER 2025-02-07 23:10 | Observation (INO) | payer BC, SELFPAY ==
--- NOTE | ~2025-02-07 | XR_ITS ---
EXAMINATION: XR chest 1V portable Exam Date/Time: 02/07/2025 23:27 CDT HISTORY: chest pain recent stent placement Comparison: 01/21/2025. RESULT: Lines, tubes, and devices: Coronary stenting. Lungs and pleura: Clear. Cardiomediastinal silhouette: Stable. Other: No acute osseous or upper abdominal finding. IMPRESSION: No acute cardiopulmonary process. Reviewed, dictated and finalized at location K.
--- NOTE | 2025-02-07 23:11 | ECG_ITS ---
Test Date: 2025-02-07 23:17:57 Measurements Intervals [place] Rate: 68 P: 45 [place]: 178 QRS: -33 QRSD: 163 T: 203 QT: 410 QTc: 437 Interpretive Statements SINUS RHYTHM SUSPECT PREVIOUS ANTEROSEPTAL CA T-WAVE ABNORMALITY CONSIDER ANTERIOR ISCHEMIA ABNORMAL ECG Compared to ECG 01/22/2025 09:03:04 NO SIGNIFICANT CHANGE Electronically Signed On 02-08-2025 08:15:24 CDT by Griffin Centeno M.D.
--- OUTSIDE RECORDS SUMMARY | 2025-02-07 23:13 | XMS_ITS | Clinical Summary ---
Author Organization [facility] Address [address] [place] [address] Phone Care Team Providers Care Parent Educator Name Role Phone Cecilia Gomez MD Primary Care Provider [phone] Allergies No known active allergies Medications carvedilol [...] 12/28/2015 INFLUENZA VACCINE (#1) 2025 Care Teams Parent Educator Relationship Specialty Start Date End Date Cecilia Gomez MD PCP - General Family Practice 01/16/16
--- OUTSIDE RECORDS SUMMARY | 2025-02-07 23:13 | XMS_ITS | Encounter Summary ---
Author Organization [facility] Address [address] [place] [address] Care Team Providers Care Mail Caller Name Role Phone Unknown, Notinfile Primary Care Provider Unavail able No, Physician Primary Care Provider [phone] Encounter Details Date Type Department Care Team (Late st Contact Info) Description 12/08/2023 Orders Only [facility] Health Information Management [address] [place] [address] Scanning, Provider Social History Tobacco Use Types Packs/Day Years Used Date Smoking Tobacco: Never Smokeless Tobacco: Never Alcohol Use Standard Drinks/Week Comments Never 0 (1 standard drink = 0.6 oz pur e alcohol) Sex and Gender Information Value Date Recorded Sex Assigned at Not on file 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 Gender Identity Male 03/13/2021 12:39 AM CDT Sexual Orientation Straight 03/13/2021 12 :39 AM CDT documented as of this encounter Plan of Treatment Not on file documented as of this encounter Procedures Procedure Name Priority Date/Time Associated Diagnosis Comments SCAN - LABS 12/08/2023 documented in this encounter Results * SCAN - LABS (12/08/2023) us Provider Scanning Final Result documented in this encounter Visit Diagnoses Not on filedocumented in this encounter Care Teams Mail Caller Relationship Specialty Start Date End Date Unknown, Notinfile PCP - General 04/06/23 01/19/25 No, Physician PCP - General 01/20/25 documented as of this encounter
--- OUTSIDE RECORDS SUMMARY | 2025-02-07 23:14 | XMS_ITS | Clinical Summary ---
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 Gender Identity Not on file Sexual Orientation Not on file Plan of Treatment Health Maintenance Due Date Last Done Comments Hepatitis C Virus (HCV) Screening 1965 Hepatitis B Immunization (1 of 3 - 19+ 3-dose series) 1984 Cologuard 2010 Colonoscopy 2010 Colorectal Cancer Screening 2010 Immunochemical Fecal Occult Blood 2010 Pneumococcal Immunization (50+ years) (1 of 1 - PCV) 12/28/2015 Zoster Immunization (1 of 2) 12/28/2015 SARS-COV-2 Immunization (1 - season) 2024 Influenza Immunization (#1) 03/13/202501/2020, 04/22/2019, 04/12/2019, Additional history exists Respiratory Syncytial Virus (RSV) Immunization (Adult) (1 - 1-dose 75+ series) 2040 DTaP/Tdap/Td Immunization Discontinued 06/29/2019 TdaP Immunization Completed 06/29/2019 Human Papillomavirus (HPV) Immunization Aged Out No longer eligible based on patient's age to complete this topic Meningococcal Immunization (ACWY) Aged Out No longer [...]
--- OUTSIDE RECORDS SUMMARY | 2025-02-07 23:14 | XMS_ITS | Referral Summary ---
Author Organization [facility] [address] [place] [address] [place] [phone] Care Team Providers Care Cae Engineer Name Role Phone No, Physician Primary Care Provider [phone] Encounters Date Type Department Care Team Description 01/27/2025 Telephone [facility] Cardiology [address] [place] [address] [place] [phone] Nathalie Valverde NP 01/27/2025 Orders Only [address] [place] [phone] Nichole Walker MD 01/23/2025 Telephone [facility] Cardiology [address] [place] [address] [place] [phone] Keesha Robertson NP 01/23/2025 Orders Only [facility] Cardiology [address] [place] [address] [address] [place] [phone] Nathalie Valvrede NP Ischemia of apical anterior segment of left ventricle of heart (Primary Dx) 01/20/2025 8:30 AM CDT Office Visit [facility] Cardiology [address] [place] [address] [place] [phone] Keesha Robertson NP Coronary artery disease of upper [place] artery of upper [place] heart with stable angina pectoris; Lipid screening; Pure hypercholesterolemia; Essential hypertension 12/23/2024 Telephone [facility] Cardiology [address] [place] [phone] Keesha Robertson NP 12/14/2024 Telephone [facility] Cardiology [address] [place] [address] Keesha Robertson NP from Last 3 Months Allergies Active Allergy Reactions Criticality Noted Date Comments Lisinopril Cough Low 02/15/2019 Medications aspirin (ASPIRIN LOW DOSE) 81 mg tablet take 1 tablet by oral route every day 0 0 08/30/19 14 Active cholecalciferol (VITAMIN D-3) 5,000 unit tablet Take 1 tablet (5,000 Units total) by mouth daily Active polycarbophil (FIBERCON) 625 mg tablet Take 1 tablet (625 mg total) by mouth as needed Active tadalafiL (CIALIS) 20 mg tabletIndication s:Erectile dysfunction due to arterial insufficiency TAKE 1 TABLET DAILY NEEDED FOR ERECTILE DYSFUNCTION 10 tablet 11 04/07/20 23 Active atorvastatin (LIPITOR) 80 mg tabletIndication s:Pure hypercholesterol emia,Coronary artery disease involving upper [place] coronary artery of [place] heart without angina pectoris Take 1 tablet (80 mg total) by mouth daily 90 tablet 3 05/16/20 24 Active carvediloL (COREG) 6.25 mg tabletIndication s:Coronary artery disease involving upper [place] coronary artery of upper [place] heart without angina pectoris,Essenti al hypertension Take 1 tablet (6.25 mg total) by mouth 2 (two) times a day with meals 180 tablet 3 05/16/20 24 Active ezetimibe (ZETIA) 10 mg tabletIndication s:Pure hypercholesterol emia,Coronary artery disease involving upper [place] coronary artery of upper [place] heart without angina pectoris Take 1 tablet (10 mg total) by mouth daily 90 tablet 3 05/16/20 24 Active losartan (COZAAR) 50 mg tabletIndication s:Essential hypertension Take 1 tablet (50 mg total) by mouth daily 90 tablet 3 05/16/20 24 Active ticagrelor (Brilinta) 90 mg tabletIndication s:Coronary artery disease involving upper [place] coronary artery of upper [place] heart without angina pectoris Take 1 tablet (90 mg total) by mouth 2 (two) times a day 180 tablet 3 01/28/20 25 Active ticagrelor (Brilinta) 60 mg tabletIndication s:Coronary artery disease involving upper [place] coronary artery of upper [place] heart without angina pectoris Take 1 tablet (60 mg total) by mouth 2 (two) times a day 180 tablet 3 05/16/20 24 2024 Discontinued Active Problems Problem Noted Date Diagnosed Date [...] on file 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 Gender Identity Male 03/13/2021 12:39 AM CDT [...] Procedure Name Priority Date/Time Associated Diagnosis Comments CARDIOLOGY DOCUMENT SCAN Routine 01/22/2025 3:04 PM CDT CARDIOLOGY DOCUMENT SCAN Routine 01/22/2025 1:09 PM CDT POCT LIPID PANEL Routine 01/20/2025 8:40 AM CDT Lipid screening from Last 3 Months Results * Cardiology Document Scan (01/22/2025 3:04 PM CDT) Anatomical Region Laterality Modality Other us Nichole Walker MD [facility] C[facility]IAC SERVICES PROCEDURES Final Result * Cardiology Document Scan (01/22/2025 1:09 PM CDT) Anatomical Region Laterality Modality Other us Nichole Walker MD [facility] CARDIAC SERVICES PROCEDURES Final Result * POCT lipid panel (01/20/2025 8:40 AM [...] Insurance ANTHEM ACCESS ANTHEM ACCESS Care Teams Cae Engineer Relationship Specialty Start Date End Date No, Physician PCP - General 01/20/25
--- OUTSIDE RECORDS SUMMARY | 2025-02-07 23:14 | XMS_ITS | Encounter Summary ---
Author Organization [facility] Address [address] [place] [address] Care Team Providers Care Jersey Knitter Name Role Phone Lc Mosher MD Primary Care Provider Yamel Siu NP Primary Care Provider [phone] Encounter Details Date Type Department Care Team (Late st Contact Info) Description 10/04/2021 [employer] Message Enc [facility] Family & Internal Medicine [address] [phone] [facility] Provider WANDA Social History Tobacco Use Types [...] CDT Gender Identity Male 07/29/2021 3:15 PM BRIM RAISER Sexual Orientation Straight 07/29/2021 3: 15 PM BRIM RAISER documented as of this encounter Plan of Treatment Not on file documented as of this encounter Visit Diagnoses Not on filedocumented in this encounter Additional Health Concerns Assessment Noted Time PHQ-9 Depression Total Score: 0 08/23/19 9:05 AM BRIM RAISER documented as of this encounter Care Teams Jersey Knitter Relationship Specialty Start Date End Date Lc Mosher MD PCP - General INTERNAL MEDICINE 06/28/18 10/16/22 Yamel Gonzalez NP [address] [place] [address] PCP - General NURSE PRACTITIONER 10/17/22 documented as of this encounter
--- OUTSIDE RECORDS SUMMARY | 2025-02-07 23:14 | XMS_ITS | Clinical Summary ---
Author Organization [facility] Address [address] [place] [address] Care Team Providers Care Glass Inspector Name Role Phone Yamel Gonzalez NP Primary Care Provider [phone] Allergies Active Allergy Reactions Criticality Noted Date [...] Problems Daughter Heart Father Heart Disease Father HI Father Colon Cancer Maternal Grandmother Heart Mother HI Mother Diabetes Sister Relation Status Comments Daughter [...] CDT Gender Identity Male 07/29/2021 3:15 PM SNAKER TRACTOR DRIVER Sexual Orientation Straight 07/29/2021 3: 15 PM SNAKER TRACTOR DRIVER Last Filed Vital Signs Vital Sign Reading Time Taken Comments Blood Pressure 120/80 08/23/2021 8:53 AM SNAKER TRACTOR DRIVER Pulse 78 08/23/2021 8:53 AM SNAKER TRACTOR DRIVER Temperature 36.6 C (97.8 F) 08/23/2021 8:53 AM SNAKER TRACTOR DRIVER Respiratory Rate 18 08/23/2021 8:53 AM SNAKER TRACTOR DRIVER Oxygen Saturation 98% 08/23/2021 8:53 AM SNAKER TRACTOR DRIVER Inhaled Oxygen Concentration - - Weight 103.1 kg (227 lb 3.2 oz) 08/23/2021 8:53 AM SNAKER TRACTOR DRIVER Height 167.6 cm (5' 6) 08/23/2021 8:53 AM SNAKER TRACTOR DRIVER Body Mass Index 36.67 08/23/2021 8:53 AM SNAKER TRACTOR DRIVER Plan of Treatment Health Maintenance Due Date Last Done Comments ASCVD Statin 1965 Colorectal Cancer Screening Colonoscopy (10 Years) 1965 Annual Physical 1968 Hepatitis C 12/28/1983 Pneumococcal Vaccine: 50+ Years (1 of 2 - PCV) 1984 Zoster Vaccines (1 of 2) 12/28/2015 ASCVD LDL 11/05/2018 11/05/2017, 11/05/2017 COVID-19 Vaccine (4 2023-2 5 season) 2024 06/30/2021, 10/27/2020, 10/06/2020 [...] - 199.0 MG/DL 11/05/2017 10:55 AM [facility] TRIGLYCERIDES 66 <150 MG/DL 11/05/2017 10:55 AM T [facility] HDL 41(H) >40.0 MG/DL 11/05/2017 10:55 AM [facility] LDL (CALCULATED) 77.8 <100 MG/L 11/06/19 18 10:55 AM [facility] NON HDL CHOLESTEROL 91 0 - 129 MG/DL 11/05/2017 10:55 AM T [facility] CHOL/HDL RATIO 3.2 0.0 - 4.5 11/05/2017 10:55 AM T [facility] VLDL CALCULATION 13 5 - 55 MG/DL 11/05/2017 10:55 AM [facility] LIPID INTERPRETATION 11/05/2017 10:55 AM T [facility] Comment: NIH CONCENSUS REPORT RECOMMENDATIONS: [...] Conversion Md [facility] Final R esult [facility] [address] [place] [address], from Last 3 Months or Most Recently Relevant to Health Maintenance Insurance [employer] Advance Directives * Full Code (Latest Code Status on File) Date Activated Date Inactivated Comments 08/15/2019 3:15 PM 08/15/2019 6:32 PM Care Teams Glass Inspector Relationship Specialty Start Date End Date Yamel Gonzalez NP [address] [place] [address] PCP - General NURSE PRACTITIONER 10/17/22
--- OUTSIDE RECORDS SUMMARY | 2025-02-07 23:14 | XMS_ITS | Clinical Summary ---
Author Organization [facility] [address] Address [address] [place] [address] Care Team Providers Care Cassandra Developer Name Role Phone No, Physician Primary Care Provider [phone] Allergies Active Allergy Reactions Criticality Noted Date [...] tabletIndication s:Pure hypercholesterol emia,Coronary artery disease involving [place] coronary artery of [place] heart without angina pectoris Take 1 tablet (80 mg total) by mouth daily 90 tablet 3 05/16/20 24 Active carvediloL (COREG) 6.25 mg tabletIndication s:Coronary artery disease involving [place] coronary artery of [place] heart without angina pectoris,Essenti al hypertension Take 1 tablet (6.25 mg total) by mouth 2 (two) times a day with meals 180 tablet 3 05/16/20 24 Active ezetimibe (ZETIA) 10 mg tabletIndication s:Pure hypercholesterol emia,Coronary artery disease involving [place] coronary artery of [place] heart without angina pectoris Take 1 tablet (10 mg total) by mouth daily 90 tablet 3 05/16/20 24 Active losartan (COZAAR) 50 mg tabletIndication s:Essential hypertension Take 1 tablet (50 mg total) by mouth daily 90 tablet 3 05/16/20 24 Active ticagrelor (Brilinta) 90 mg tabletIndication s:Coronary artery disease involving [place] coronary artery of [place] heart without angina pectoris Take 1 tablet (90 mg total) by mouth 2 (two) times a day 180 tablet 3 01/28/20 25 Active ticagrelor (Brilinta) 60 mg tabletIndication s:Coronary artery disease involving [place] coronary artery of [place] heart without angina pectoris Take 1 tablet [...] erectile dysfunction Coronary artery disease invo lving [place] coronary artery of [place] heart without angina pectoris 12/12/2014 Overview (10/18/2016): Coronary atherosclerosis Old myocardial infarction 12/12/2014 Overview (10/18/2016): Old myocardial infarction Pure hypercholesterolemia 12/12/2014 Overview (10/18/2016): Hyperlipidemia Resolved Problems Problem Noted Date Diagnosed Date Resolved Date Acute pain of left knee 03/13/2021 08/12/2021 Counseling procedure with explicit context 07/09/2015 03/13/2021 Overview (10/18/2016): Encounter for medication counseling Patient encounter status 07/09/201507/2020 Overview (10/18/2016): Dietary counseling Encounters Date Type Department Care Team Description 01/27/2025 Telephone [facility] Cardiology [address] [place] [address] [place] [phone] Nathalie Valverde NP 01/27/2025 Orders Only [place] [address] [place] [phone] Nichole Walker MD 01/23/[address] [address] Keesha Robertson NP 01/23/2025 Orders Only [address] [phone] Nathalie Valverde NP Ischemia of apical anterior segment of left ventricle of heart (Primary Dx) 01/20/2025 8:30 AM CDT Office Visit [address] [address] Keesha Robertson NP Coronary artery disease of [place] artery of [place] heart with stable angina pectoris; Lipid screening; Pure hypercholesterolemia; Essential hypertension 12/23/[address] [address] Keesha Robertson NP 12/14/2024 Telephone [place] [address] [place] [address] Keesha Robertson NP from Last 3 [...] attack Father Donavan Hubbard Several MIs, [facility] age 37, at 52 y.o. Cancer Maternal [...] on file Legal Sex Male 3:00 AM BACKER UP Gender Identity Male 03/13/2021 12:39 AM CDT [...] of 2) 12/28/2015 Influenza Vaccine (#1) 2025 , 04/18/2020, 04/22/2019, Additional history exists DTaP/Tdap/Td Vaccine [...] PM CDT) Anatomical Region Laterality Modality Other Nichole Walker MD [facility] PROCEDURES Final Result * Cardiology Document Scan (01/22/2025 1:09 PM CDT) Anatomical Region Laterality Modality Other Nichole Walker MD CV CARDIAC SERVICES PROCEDURES [...] Final Result from Last 3 Months Insurance [facility] ACCESS [facility] ACCESS Care Teams Cassandra Developer Relationship Specialty Start Date End Date No, Physician PCP - General 01/20/25
[2025-02-07 23:15] VITALS: BP 162/101; PULSE 76; RESP 17; TEMP 36.3; O2SAT 99
--- OUTSIDE RECORDS SUMMARY | 2025-02-07 23:15 | XMS_ITS | Encounter Summary ---
Author Organization [facility] Address [facility] [place] [address] Care Team Providers Care Geriatric Personal Care Aide Name Role Phone Lc Mosher MD Primary Care Provider U Yamel Liriano NP Primary Care Provider [phone] Encounter Details Date Type Department Care Team (Late st Contact Info) Description 08/09/2019 Prep for Procedure [facility]-Ad[facility] Testing [address] [place], [place] [id number] Josefina Mcdonald MD [address] [address] Social History Tobacco Use Types [...] CDT Gender Identity Male 07/29/2021 3:15 PM CASH GRAIN GROWER Sexual Orientation Straight 07/29/2021 3: 15 PM CASH GRAIN GROWER documented as of this encounter Plan of Treatment Not on file documented as of this encounter Results * XR ABD KUB (08/15/2019 10:46 AM CASH GRAIN GROWER) Anatomical Region Laterality Modality Abdomen Radiographic Lakeshia ging 08/15/2019 3:50 PM CASH GRAIN GROWER Impressions 08/15/2019 3:51 PM CASH GRAIN GROWER IMPRESSION: 1. There is a 9 mm stone near the left UPJ. 2. Additional 6 mm left renal stone. Interpreted By: Roscoe Patel MD, 08/15/2019 3:50 PM Narrative 08/15/2019 3:51 PM CASH GRAIN GROWER EXAMINATION: XR ABD KUB HISTORY: Postop evaluation, [...] Result * PROTIME/INR, VENOUS (08/15/2019 9:50 AM CASH GRAIN GROWER) PROTIME 11.5 9.6 - 12.2 SEC 08/15/2019 10:31 AM CASH GRAIN GROWER [facility] INR 1.0 08/15/2019 10:31 AM CASH GRAIN GROWER [facility] Comment: Recommended INR Therapeutic Goals: 2.0-3.0 Routine Therapy 2.5-3.5 Mechanical Prosthetic Valves (High Risk) 3.0-4.0 Acute IN (to prevent Systemic Embolism) The INR is used only for patients on stable oral anticoagulant therapy. It makes no significant contribution to the diagnosis or treatment of patients whose Protime is prolonged for other reasons. 08/15/2019 9:50 AM CASH GRAIN GROWER us Josefina Mcdonald MD LABORATORY F inal Result [facility] [address] [place] [address], [place] [phone] documented in this encounter Visit Diagnoses Diagnosis Kidney stone on left side- Primary Calculus of kidney Hematuria Hematuria, unspecified Kidney stone on left side Calculus of kidney Hematuria Hematuria, unspecified documented in this encounter Additional Health Concerns Infection Onset Date Last Indicated Resolved Time COVID-19 Rule Out 07/29/2021 07/29/2021 07/30/2021 6:19 AM CASH GRAIN GROWER COVID-19 Confirmed 07/29/2021 07/29/2021 12:35 AM CASH GRAIN GROWER documented as of this encounter Care Teams Geriatric Personal Care Aide Relationship Specialty Start Date End Date Lc Mosher MD PCP - General INTERNAL MEDICINE 06/28/18 10/16/22 Yamel Gonzalez NP [address] [place] [address] PCP - General NURSE PRACTITIONER 10/17/22 documented as of this encounter
[2025-02-07] MEDS: ASPIRIN 81 MG CHEWABLE TABLET 324 MG PO (23:21)
[2025-02-07 23:28] LABS: Hematocrit 41.4 % (42.0-52.0); Hemoglobin 13.9 g/dL (14.0-18.0); Immature Granulocyte Percent A 0.3 % (0-0.5); Lymphocytes Absolute Auto 2.13 K/mm3 (0.9-3.2); Mean Corpuscular HGB Conc 33.6 g/dl (32-36); Mean Corpuscular Hemoglobin 31.1 pg (26-34); Mean Corpuscular Volume 92.6 fl (80-100); Nucleated Red Blood Cells Absolute Auto 0.000 K/mm3 (0.0-0.012); Nucleated Red Blood Cells Perc 0.0 % (0.0-0.2); Platelet Count Result 248 k/mm3 (150-375); Red Blood Count 4.47 M/mm3 (4.6-6.20); White Blood Count 6.1 K/mm3 (4.5-10.0)
[2025-02-07 23:40] LABS: INR 1.0; Prothrombin Time 13.3 Seconds (11.1-14.7)
[2025-02-07 23:41] LABS: Partial Thromboplastin Time 27.4 Seconds (22.3-36.8)
[2025-02-07 23:54] LABS: Alanine Aminotransferase 22 U/L (6-50); Albumin Level 3.9 g/dL (3.5-5.1); Alkaline Phosphatase 48 U/L (38-126); Anion Gap 6 mmol/L (4-12); Aspartate Amino Transferase 29 U/L (17-59); Bilirubin,Total 1.3 mg/dL (0.2-1.3); Blood Urea Nitrogen 18 mg/dL (9-20); Calcium 9.1 mg/dL (8.4-10.2); Carbon Dioxide 25 mmol/L (22-30); Chloride 106 mmol/L (98-107); Estimated CRCL calculation 91 ml/min; Estimated Glomerular Filt Rate > 60; Glucose 132 mg/dL (65-110); Lipase 130 U/L (23-300); Potassium 3.9 mmol/L (3.4-5.0); Sodium 137 mmol/L (137-145); Total Protein 6.8 g/dL (6.3-8.2)
--- OUTSIDE RECORDS SUMMARY | 2025-02-07 23:59 | XMS_ITS | Referral Summary ---
Author Organization [facility] [address] [place] [address] [place] [address] Care Team Providers Care Certified Rehabilitation Counselor Name Role Phone No, Physician Primary Care Provider [phone] Encounters Date Type Department Care Team Description 01/27/2025 Telephone [facility] Cardiology [address] [place] [address] [address] [place] [phone] Nathalie Valverde NP 01/27/2025 Orders Only [address] [place] [phone] Nichole Walker MD 01/23/2025 Telephone [facility] Cardiology [address] [place] [address] [address] [place] [phone] Keesha Robertson NP 01/23/2025 Orders Only [facility] Cardiology [address] [place] [address] [address] [place] [phone] Nathalie Valverde NP Ischemia of apical anterior segment of left ventricle of heart (Primary Dx) 01/20/2025 8:30 AM CDT Office Visit [facility] Cardiology [address] [place] [address] [address] [place] [phone] Keesha Robertson NP Coronary artery disease of [place] artery of [place] heart with stable angina pectoris; Lipid screening; Pure hypercholesterolemia; Essential hypertension 12/23/2024 Telephone [facility] Cardiology [address] [place] [phone] Keesha Robertson NP 12/14/2024 Telephone [facility] Cardiology [address] [place] [address] Keesha Robertson NP from Last [...] tabletIndication s:Pure hypercholesterol emia,Coronary artery disease involving [place] coronary artery of [place] heart without angina pectoris Take 1 tablet (80 mg total) by mouth daily 90 tablet 3 05/16/20 24 Active carvediloL (COREG) 6.25 mg tabletIndication s:Coronary artery disease involving [place] coronary artery of [place] heart without angina pectoris,Essenti al hypertension Take 1 tablet (6.25 mg total) by mouth 2 (two) times a day with meals 180 tablet 3 05/16/20 24 Active ezetimibe (ZETIA) 10 mg tabletIndication s:Pure hypercholesterol emia,Coronary artery disease involving [place] coronary artery of [place] heart without angina pectoris Take 1 tablet (10 mg total) by mouth daily 90 tablet 3 05/16/20 24 Active losartan (COZAAR) 50 mg tabletIndication s:Essential hypertension Take 1 tablet (50 mg total) by mouth daily 90 tablet 3 05/16/20 24 Active ticagrelor (Brilinta) 90 mg tabletIndication s:Coronary artery disease involving [place] coronary artery of [place] heart without angina pectoris Take 1 tablet (90 mg total) by mouth 2 (two) times a day 180 tablet 3 01/28/20 25 Active ticagrelor (Brilinta) 60 mg tabletIndication s:Coronary artery disease involving [place] coronary artery of [place] heart without angina pectoris Take 1 tablet [...] erectile dysfunction Coronary artery disease invo lving [place] coronary artery of [place] heart without angina pectoris 12/12/2014 Overview (10/18/2016): [...] on file 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
--- OUTSIDE RECORDS SUMMARY | 2025-02-07 23:59 | XMS_ITS | Clinical Summary ---
Author Organization [facility] Address [address] [place] [address] Care Team Providers Care Hollow Core Door Frame Assembler Name Role Phone Yamel Gonzalez NP Primary Care Provider [phone] Allergies Active Allergy Reactions Criticality Noted Date [...] Problems Daughter Heart Father Heart Disease Father [place] Father Colon Cancer Maternal Grandmother Heart Mother [place] Mother Diabetes Sister Relation Status Comments Daughter [...] CDT Gender Identity Male 07/29/2021 3:15 PM CREDIT OFFICER Sexual Orientation Straight 07/29/2021 3: 15 PM CREDIT OFFICER Last Filed Vital Signs Vital Sign Reading Time Taken Comments Blood Pressure 120/80 08/23/2021 8:53 AM CREDIT OFFICER Pulse 78 08/23/2021 8:53 AM CREDIT OFFICER Temperature 36.6 C (97.8 F) 08/23/2021 8:53 AM CREDIT OFFICER Respiratory Rate 18 08/23/2021 8:53 AM CREDIT OFFICER Oxygen Saturation 98% 08/23/2021 8:53 AM CREDIT OFFICER Inhaled Oxygen Concentration - - Weight 103.1 kg (227 lb 3.2 oz) 08/23/2021 8:53 AM CREDIT OFFICER Height 167.6 cm (5' 6) 08/23/2021 8:53 AM CREDIT OFFICER Body Mass Index 36.67 08/23/2021 8:53 AM CREDIT OFFICER Plan of Treatment Health Maintenance Due Date [...] - 199.0 MG/DL 11/05/2017 10:55 AM [facility] TRIGLYCERIDES 66 <150 MG/DL 11/05/2017 10:55 AM [facility] HDL 41(H) >40.0 MG/DL 11/05/2017 10:55 AM [facility] LDL (CALCULATED) 77.8 <100 MG/L 11/06/19 18 10:55 AM [facility] NON HDL CHOLESTEROL 91 0 - 129 MG/DL 11/05/2017 10:55 AM [facility] CHOL/HDL RATIO 3.2 0.0 - 4.5 11/05/2017 10:55 AM [facility] VLDL CALCULATION 13 5 - 55 MG/DL 11/05/2017 10:55 AM [facility] LIPID INTERPRETATION 11/05/2017 10:55 AM [facility] Comment: NIH CONCENSUS REPORT [...] Conversion Md [facility] Final R esult [facility] [address] [place] [address], from Last 3 Months or Most Recently Relevant to Health Maintenance Insurance [employer] Advance Directives * Full Code (Latest Code Status on File) Date Activated Date Inactivated Comments 08/15/2019 3:15 PM 08/15/2019 6:32 PM Care Teams Hollow Core Door Frame Assembler Relationship Specialty Start Date End Date Yamel Gonzalez NP [address] [place] [address] PCP - General NURSE PRACTITIONER 10/17/22
--- OUTSIDE RECORDS SUMMARY | 2025-02-07 23:59 | XMS_ITS | Clinical Summary ---
Author Organization [facility] [address] Address [address] [place] [address] Care Team Providers Care Flare Man Name Role Phone No, Physician Primary Care Provider [phone] Allergies Active Allergy Reactions Criticality Noted Date [...] tabletIndication s:Pure hypercholesterol emia,Coronary artery disease involving [place] coronary artery of [place] heart without angina pectoris Take 1 tablet (80 mg total) by mouth daily 90 tablet 3 05/16/20 24 Active carvediloL (COREG) 6.25 mg tabletIndication s:Coronary artery disease involving [place] coronary artery of [place] heart without angina pectoris,Essenti al hypertension Take 1 tablet (6.25 mg total) by mouth 2 (two) times a day with meals 180 tablet 3 05/16/20 24 Active ezetimibe (ZETIA) 10 mg tabletIndication s:Pure hypercholesterol emia,Coronary artery disease involving [place] coronary artery of [place] heart without angina pectoris Take 1 tablet (10 mg total) by mouth daily 90 tablet 3 05/16/20 24 Active losartan (COZAAR) 50 mg tabletIndication s:Essential hypertension Take 1 tablet (50 mg total) by mouth daily 90 tablet 3 05/16/20 24 Active ticagrelor (Brilinta) 90 mg tabletIndication s:Coronary artery disease involving [place] coronary artery of [place] heart without angina pectoris Take 1 tablet (90 mg total) by mouth 2 (two) times a day 180 tablet 3 01/28/20 25 Active ticagrelor (Brilinta) 60 mg tabletIndication s:Coronary artery disease involving [place] coronary artery of [place] heart without angina pectoris Take 1 tablet [...] erectile dysfunction Coronary artery disease invo lving [place] coronary artery of [place] heart without angina pectoris 12/12/2014 Overview (10/18/2016): [...] Type Department Care Team Description 01/27/2025 Telephone [facility] Cardiology [address] [place] [address] [place] [phone] Nathalie Valverde NP 01/27/2025 Orders Only [place] [address] [place] [phone] Nichole Walker MD 01/23/[address] [phone] Keesha Robertson NP 01/23/2025 Orders Only [address] [phone] Nathalie Valverde NP Ischemia of apical anterior segment of left ventricle of heart (Primary Dx) 01/20/2025 8:30 AM CDT Office Visit [address] [phone] Keesha Robertson NP Coronary artery disease of [place] artery of [place] heart with stable angina pectoris; Lipid screening; Pure hypercholesterolemia; Essential hypertension 12/23/[address] [phone] Keesha Robertson NP 12/14/2024 Telephone [place] [address] [place] [phone] Keesha Robertson NP from Last 3 [...] on file Legal Sex Male 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
--- OUTSIDE RECORDS SUMMARY | 2025-02-07 23:59 | XMS_ITS | Encounter Summary ---
Author Organization [facility] Address [facility] [place] [address] Care Team Providers Care Trimmer Buffing Wheel Name Role Phone Lc Mosher MD Primary Care Provider U Yamel Liriano NP Primary Care Provider [phone] Encounter Details Date Type Department Care Team (Late st Contact Info) Description 08/09/2019 Prep for Procedure [facility]-Ad[facility] Testing [address] [place], [place] [id number] Josefina Mcdonald MD [address] [address] Social History Tobacco Use Types [...] CDT Gender Identity Male 07/29/2021 3:15 PM AFTER SCHOOL COUNSELOR Sexual Orientation Straight 07/29/2021 3: 15 PM AFTER SCHOOL COUNSELOR documented as of this encounter Plan of Treatment Not on file documented as of this encounter Results * XR ABD KUB (08/15/2019 10:46 AM AFTER SCHOOL COUNSELOR) Anatomical Region Laterality Modality Abdomen Radiographic Lakeshia ging 08/15/2019 3:50 PM AFTER SCHOOL COUNSELOR Impressions 08/15/2019 3:51 PM AFTER SCHOOL COUNSELOR IMPRESSION: 1. There is a 9 mm stone near the left UPJ. 2. Additional 6 mm left renal stone. Interpreted By: Roscoe Patel MD, 08/15/2019 3:50 PM Narrative 08/15/2019 3:51 PM AFTER SCHOOL COUNSELOR EXAMINATION: XR ABD KUB HISTORY: Postop evaluation, [...] Result * PROTIME/INR, VENOUS (08/15/2019 9:50 AM AFTER SCHOOL COUNSELOR) PROTIME 11.5 9.6 - 12.2 SEC 08/15/2019 10:31 AM AFTER SCHOOL COUNSELOR [facility] INR 1.0 08/15/2019 10:31 AM AFTER SCHOOL COUNSELOR [facility] Comment: Recommended INR Therapeutic Goals: 2.0-3.0 Routine Therapy 2.5-3.5 Mechanical Prosthetic Valves (High Risk) 3.0-4.0 Acute FL (to prevent Systemic Embolism) The INR is used only for patients on stable oral anticoagulant therapy. It makes no significant contribution to the diagnosis or treatment of patients whose Protime is prolonged for other reasons. 08/15/2019 9:50 AM AFTER SCHOOL COUNSELOR us Josefina Mcdonald MD LABORATORY F inal Result [facility] [address] [place] [address], [place] [phone] documented in this encounter Visit Diagnoses Diagnosis Kidney stone on left side- Primary Calculus of kidney Hematuria Hematuria, unspecified Kidney stone on left side Calculus of kidney Hematuria Hematuria, unspecified documented in this encounter Additional Health Concerns Infection Onset Date Last Indicated Resolved Time COVID-19 Rule Out 07/29/2021 07/29/2021 07/30/2021 6:19 AM AFTER SCHOOL COUNSELOR COVID-19 Confirmed 07/29/2021 07/29/2021 12:35 AM AFTER SCHOOL COUNSELOR documented as of this encounter Care Teams Trimmer Buffing Wheel Relationship Specialty Start Date End Date Lc Mosher MD PCP - General INTERNAL MEDICINE 06/28/18 10/16/22 Yamel Gonzalez NP [address] [place] [address] PCP - General NURSE PRACTITIONER 10/17/22 documented as of this encounter
--- OUTSIDE RECORDS SUMMARY | 2025-02-07 23:59 | XMS_ITS | Encounter Summary ---
Author Organization [facility] Address [address] [place] [address] Care Team Providers Care Seat Scooper Machine Name Role Phone Unknown, Notinfile Primary Care Provider Unavail able No, Physician Primary Care Provider Encounter Details Date Type Department Care Team (Late st Contact Info) Description 12/08/2023 Orders Only [facility] Health Information Management [address] [place] [id number] Scanning, Provider Social History Tobacco Use Types Packs/Day Years Used Date Smoking Tobacco: Never Smokeless Tobacco: Never Alcohol Use Standard Drinks/Week Comments Never 0 (1 standard drink = 0.6 oz pur e alcohol) Sex and Gender Information Value Date Recorded Sex Assigned at Not on file Legal Sex Male 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
--- OUTSIDE RECORDS SUMMARY | 2025-02-07 23:59 | XMS_ITS | Clinical Summary ---
Author Organization [facility] Address [address] [place] [address] Care Team Providers Care Practice Manager Name Role Phone Unavailable Primary Care Provider Unavailabl e Social History Tobacco Use Types Packs/Day Years Used Date Smoking Tobacco: Never Assessed Sex and Gender Information Value Date Recorded Sex Assigned at Not on file Legal Sex Male 2:47 PM DANCE HISTORIAN Gender Identity Not on file Sexual Orientation [...]
--- OUTSIDE RECORDS SUMMARY | 2025-02-07 23:59 | XMS_ITS | Encounter Summary ---
Author Organization [facility] Address [address] [place] [address] Care Team Providers Care Parking Lot Laborer Name Role Phone Lc Mosher MD Primary Care Provider Yamel Siu NP Primary Care Provider [phone] Encounter Details Date Type Department Care Team (Late st Contact Info) Description 10/04/2021 [employer] Message Enc [facility] Family & Internal Medicine [address] [address] [facility] Provider WANDA Social History Tobacco Use Types [...] CDT Gender Identity Male 07/29/2021 3:15 PM CAN CLOSING MACHINE OPERATOR Sexual Orientation Straight 07/29/2021 3: 15 PM CAN CLOSING MACHINE OPERATOR documented as of this encounter Plan of Treatment Not on file documented as of this encounter Visit Diagnoses Not on filedocumented in this encounter Additional Health Concerns Assessment Noted Time PHQ-9 Depression Total Score: 0 08/23/19 9:05 AM CAN CLOSING MACHINE OPERATOR documented as of this encounter Care Teams Parking Lot Laborer Relationship Specialty Start Date End Date Lc Mosher MD PCP - General INTERNAL MEDICINE 06/28/18 10/16/22 Yamel Gonzalez NP [address] [place] [address] PCP - General NURSE PRACTITIONER 10/17/22 documented as of this encounter
--- OUTSIDE RECORDS SUMMARY | 2025-02-07 23:59 | XMS_ITS | Clinical Summary ---
Author Organization [facility] Address [address] [place] [address] Phone Care Team Providers Care Integration Engineer Name Role Phone Cecilia Gomez MD Primary Care Provider [phone] Allergies No known active allergies Medications carvedilol [...] 12/28/2015 INFLUENZA VACCINE (#1) 2025 Care Teams Integration Engineer Relationship Specialty Start Date End Date Cecilia Gomez MD PCP - General Family Practice 01/16/16
--- OUTSIDE RECORDS SUMMARY | 2025-02-07 23:59 | XMS_ITS | Encounter Summary ---
Author Organization [facility] Address [address] [place] [id number] Care Team Providers Care Assurance Sourcing Manager Name Role Phone Lc Mosher MD Primary Care Provider U Yamel Liriano NP Primary Care Provider [phone] Encounter Details Date Type Department Care Team (Late st Contact Info) Description 05/15/2020 ObjectLabs Message Enc [facility] Family & Internal Medicine [address] [id number] [facility] MEDICATION CONTRA-INDICATION Social History Tobacco [...] Gender Identity Male 07/29/2021 3:15 PM CREDIT UNDERWRITER Sexual Orientation Straight 07/29/2021 3: 15 PM CREDIT UNDERWRITER COVID-19 Exposure Response Date Recorded In the last month, have you been in contact with someone who was confirmed or suspected to have Coronavirus / COVID-19? No / Unsure 05/14/2020 5:31 PM CREDIT UNDERWRITER documented as of this encounter Plan of Treatment Not on file documented as of this encounter Visit Diagnoses Not on filedocumented in this encounter Additional Health Concerns Infection Onset Date Last Indicated Resolved Time COVID-19 Rule Out 07/29/2021 07/29/2021 07/30/2021 6:19 AM CREDIT UNDERWRITER COVID-19 Confirmed 07/29/2021 07/29/2021 12:35 AM CREDIT UNDERWRITER documented as of this encounter Care Teams Assurance Sourcing Manager Relationship Specialty Start Date End Date Lc Mosher MD PCP - General INTERNAL MEDICINE 06/28/18 10/16/22 Yamel Gonzalez NP [address] [place] [address] PCP - General NURSE PRACTITIONER 10/17/22 documented as of this encounter
[2025-02-08] VITALS (19 sets, daily range): BP systolic 80–169; BP diastolic 55–99; PULSE 52–78; RESP 16–20; TEMP 36.1–36.6; O2SAT 95–100; BMI 34.0
[2025-02-08 00:02] LABS: Troponin I < 0.012 ng/mL (0.000-0.034)
[2025-02-08] MEDS: NITROGLYCERIN SL 0.4 MG TABLET SUBLINGUAL (00:08)
[2025-02-08] MEDS: MORPHINE SULFATE (*CRX) 4 MG/ML INJ IV PUSH (00:08)
[2025-02-08] MEDS: SODIUM CHLORIDE 0.9% IV 500 ML 999 ML IV CONT (00:25)
--- NOTE | 2025-02-08 00:27 | PC.NURSE ---
pts BP dropped to 70s/40s. ERP made aware and fluid bolus ordered.
--- NOTE | 2025-02-08 01:32 | ED.GENADULT ---
HPI - General Adult General Chief complaint: Chest Pain Stated complaint: chest tightness. stents 2 weeks ago Time Seen by Provider: 02/07/25 23:13 History of Present Illness HPI narrative: This is a 59-year-old male history of coronary artery disease who underwent stenting approximately 2 weeks ago presenting with left-sided tightness. Patient says the symptoms started 24 hours prior to arrival. It has been constant throughout the day. 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 It is not associated with diaphoresis, exertion, or vomiting. Patient denies fevers cough or shortness of breath. Patient has been taking his medications as directed. Related Data Home Medications ?Medication ?Instructions ?Recorded ?Confirmed ?Last Taken ?Type aspirin 81 mg tablet,delayed 81 mg PO DAILY 07/22/19 01/21/25 01/18/25 History release (Adult Aspirin Regimen) atorvastatin 80 mg tablet (Lipitor) 80 mg PO HS 07/22/19 01/21/25 01/20/25 History carvedilol 6.25 mg tablet 6.25 mg PO Q12H 07/22/19 01/21/25 01/21/25 History ezetimibe 10 mg tablet 10 mg PO HS 07/22/19 01/21/25 01/20/25 History tadalafil 20 mg tablet 20 mg PO DAILY PRN sexual activity 08/30/19 01/21/25 Unknown History losartan 50 mg tablet 50 mg PO DAILY 08/18/21 01/21/25 01/21/25 History Allergies Allergy/AdvReac Type Severity Reaction Status Date / Time lisinopril Allergy Unknown Verified 02/07/25 23:11 [facility] Past Medical History Medical History Essential hypertension Hyperlipidemia Coronary artery disease Kidney stone Surgical History Surgical History History of lithotripsy History of coronary angioplasty with insertion of stent Family History Family History Sibling Family history of obesity Family history of coronary artery disease Family history of diabetes mellitus in first degree relative Mother Patient's mother is Family history of heart disease in male family member before age 55 Father Acute myocardial infarction, Onset Age: 52 Family history of coronary artery disease, Onset Age: 52 Family history of heart disease in male family member before age 55 Grandparent Carcinoma of colon Social History Social History Social History: Surrogate medical decision maker: Erma Hubbard, spouse. Code status: Full code. Smoking status: Never smoker Second hand tobacco smoke exposure: No Alcohol intake: never Substance use: never Do You Feel Safe in your Home?: Yes Lack of Transportation: No Lack of Food: Never True Current Housing: I Have Housing Concerned About Future Housing: No Difficulty Paying Gas/Electric Bills: No Difficulty Paying for Meds: No Currently Unemployed: No Education: Trade/Vocational Certificate Difficulty w/ Childcare or Family Care: No Spiritual care concerns: No Exam Narrative: APPEARANCE: No apparent distress. Head: atraumatic. EYES: EOMI, NOSE: Atraumatic NECK: Trachea midline RESPIRATORY: No increased rate of breathing, clear to auscultation no reproducible chest wall tenderness CARDIOVASCULAR: RRR, no peripheral edema ABDOMINAL: Non-distended soft nontender MUSCULOSKELETAl: No obvious deformities NEURO: Alert. Moving 4/4 extremities SKIN:: Warm, dry. Normal color PSYCHIATRIC: Normal affect Course Vital Signs Vital signs: Vital Signs Temperature 97.4 F L 02/07/25 23:15 Pulse Rate 76 02/07/25 23:15 Respiratory Rate 17 02/07/25 23:15 Blood Pressure 162/101 H 02/07/25 23:15 Pulse Oximetry 99 02/07/25 23:15 Oxygen Delivery Room Air 02/07/25 23:15 Temperature 97.8 F 02/08/25 00:12 Pulse Rate 78 02/08/25 02:05 Respiratory Rate 18 02/08/25 02:05 Blood Pressure 127/86 02/08/25 02:05 Pulse Oximetry 98 02/08/25 02:05 Oxygen Delivery Room Air 02/07/25 23:15 Medical Decision Making MDM Narrative Medical decision making narrative: -Course: 59-year-old male history coronary artery disease and recent stenting presenting with left-sided chest tightness. Patient received aspirin, nitro and morphine. After the nitro his blood pressure dropped to 70/50 which was treated with a 500 cc bolus with improvement. Chest pain is improved is now rated 1. EKG showed T-wave inversions and nonspecific ST changes which is unchanged from his ekg on 01/22/2025. Initial troponin was negative. Chest x-ray was clear. Troponins undetectable x2. Given his recent cardiac catheterization patient be admitted to the hospital for cardio evaluation -DDX includes but is not limited to: NSTEMI, unstable angina, anxiety, chest wall pain, Aaliyah syndrome -Co-morbidities complicating care: CAD Vital Signs Vital Signs: Vital Signs Temperature 97.4 F L 02/07/25 23:15 Pulse Rate 76 02/07/25 23:15 Respiratory Rate 17 02/07/25 23:15 Blood Pressure 162/101 H 02/07/25 23:15 Pulse Oximetry 99 02/07/25 23:15 Oxygen Delivery Room Air 02/07/25 23:15 Temperature 97.8 F 02/08/25 00:12 Pulse Rate 78 02/08/25 02:05 Respiratory Rate 18 02/08/25 02:05 Blood Pressure 127/86 02/08/25 02:05 Pulse Oximetry 98 02/08/25 02:05 Oxygen Delivery Room Air 02/07/25 23:15 Lab Data 02/07/25 23:23 02/07/25 23:23 Labs: Lab Results 02/07/25 02/08/25 Range/Units 23:23 02:21 WBC 6.1 (4.5-10.0) K/mm3 RBC 4.47 L (4.6-6.20) M/mm3 Hgb 13.9 L (14.0-18.0) g/dL Hct 41.4 L (42.0-52.0) % MCV 92.6 (80-100) fl MCH 31.1 (26-34) pg MCHC 33.6 (32-36) g/dl RDW 13.2 (11.5-14.5) % Plt Count 248 (150-375) k/mm3 MPV 9.6 (7.4-10.4) fl Immature Gran % (Auto) 0.3 (0-0.5) % Neut % (Auto) 48.6 (45.5-73.1) % Lymph % (Auto) 34.9 (18.3-44.2) % [place] % (Auto) 13.1 H (2.6-8.5) % Eos % (Auto) 2.3 (0-4.4) % Baso % (Auto) 0.8 (0.2-1.2) % Lymph # (Auto) 2.13 (0.9-3.2) K/mm3 [place] # (Auto) 0.8 H (0.1-0.6) K/mm3 Eos # (Auto) 0.1 (0-0.3) K/mm3 Baso # (Auto) 0.1 (0.0-0.1) K/mm3 Abs Immat Gran (auto) 0.02 (0.00-0.031) K/mm3 Absolute Neuts (auto) 3.0 (1.3-6.7) K/mm3 Absolute Nucleated RBC 0.000 (0.0-0.012) K/mm3 Nucleated RBC % 0.0 (0.0-0.2) % PT 13.3 (11.1-14.7) Seconds INR 1.0 APTT 27.4 (22.3-36.8) Seconds Sodium 137 (137-145) mmol/L Potassium 3.9 (3.4-5.0) mmol/L Chloride 106 (98-107) mmol/L Carbon Dioxide 25 (22-30) mmol/L Anion Gap 6 (4-12) mmol/L BUN 18 (9-20) mg/dL Creatinine 0.86 (0.7-1.3) mg/dL Estim Creat Clear Calc 91 ml/min Estimated GFR > 60 (59 - ) Glucose 132 H (65-110) mg/dL Calcium 9.1 (8.4-10.2) mg/dL Total Bilirubin 1.3 (0.2-1.3) mg/dL AST 29 (17-59) U/L ALT 22 (6-50) U/L Alkaline Phosphatase 48 (38-126) U/L Troponin I < 0.012 Pending (0.000-0.034) ng/mL Total Protein 6.8 (6.3-8.2) g/dL Albumin 3.9 (3.5-5.1) g/dL Lipase 130 (23-300) U/L Discharge Plan Discharge Clinical Impression: Chest pain Patient Disposition: Still a Patient Condition: Stable Patient Language: [place] Prescriptions: No Action losartan 50 mg tablet 50 mg PO DAILY tadalafil 20 mg Tablet 20 mg PO DAILY PRN (Reason: sexual activity) aspirin [Adult Aspirin Regimen] 81 mg tablet,delayed release (DR/EC) 81 mg PO DAILY Patient Comments: carvedilol 6.25 mg tablet 6.25 mg PO Q12H ezetimibe 10 mg tablet 10 mg PO HS atorvastatin [Lipitor] 80 mg tablet 80 mg PO HS tamsulosin [Flomax] 0.4 mg capsule 0.4 mg PO DAILY Qty: 7 0RF ticagrelor [Brilinta] 90 mg Tablet 90 mg PO Q12HR 30 Days Qty: 60 0RF ticagrelor [Brilinta] 90 mg tablet 90 mg PO Q12H Qty: 60 11RF Follow-up/Referrals: PHYSICIAN NOT ON STAFF,NONSTAFF [Primary Care Provider] -
--- NOTE | 2025-02-08 02:23 | ECG_ITS ---
Test Date: 2025-02-08 02:10:01 Measurements Intervals [place] Rate: 61 P: 9 OR: 189 QRS: 83 QRSD: 116 T: 229 QT: 455 QTc: 459 Interpretive Statements SINUS RHYTHM SUSPECT PREVIOUS ANTEROSEPTAL LA T-WAVE ABNORMALITY CONSIDER ANTERIOR ISCHEMIA ABNORMAL ECG Compared to ECG 02/07/2025 23:17:57 No significant changes Electronically Signed On 02-08-2025 08:17:59 CDT by Griffin Centeno M.D.
[2025-02-08 02:51] LABS: Troponin I < 0.012 ng/mL (0.000-0.034)
--- NOTE | 2025-02-08 05:31 | ADMGEN ---
This patient, Ruben Hubbard, was admitted to [facility] Surg Room 314-01. Patient/family oriented to hospital policies and general routines including ID bracelet, bed and alarms, visiting hours, pain management, procedures, bathroom and other care routines, personal items, smoking policy, room service/diet, and visiting hours. Information on how to activate the Rapid Response Team has been discussed. Patient/Family are encouraged to report perceived risks to care and to ask questions if they do not understand what they are told or what they should do.
--- NOTE | 2025-02-08 05:53 | P.HP_ITS ---
H&P: HPI History of Present Illness Date/Time: 02/08/25 05:53 Chief Complaint: Chest pain Narrative: 59-year-old male with past medical history hyperlipidemia, hypertension, CAD status post stents in 2012 and 2018 with NSTEMI with stent to mid PDA and balloon angioplasty of mid RCA for re-expansion on 01/22/[address] Walker who presents back to [facility] on 02/08/2025 with chest pain again. Last ad mission is chest pains with central and sharp, this time it is left-sided and tight. 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 The chest pain was persistent. He did not have any nitroglycerin or other medications he has been taking his prescribed aspirin statin Coreg losartan and Brilinta. In [place] ER he received nitroglycerin with resultant hypotension 92/58. He had also received morphine 4 mg IV x1 and aspirin 324 mg p.o. x1. He was given a 500 cc bolus thereafter in his blood pressure improved. He reports his pain was down from a 4 to a 1-2 and rested comfortably. Troponin negative x2 with a 3rd pending. EKG showing T-wave abnormalities which are similar to prior admission. Review of Systems Review of Systems: All systems reviewed & are unremarkable except as noted in HPI and below (Subjective/HPI) [facility] Past Medical History Medical History Essential hypertension Hyperlipidemia Coronary artery disease Kidney stone Surgical History Surgical History History of lithotripsy History of coronary angioplasty with insertion of stent Family History Family History Sibling Family history of obesity Family history of coronary artery disease Family history of diabetes mellitus in first degree relative Mother Patient's mother is Family history of heart disease in male family member before age 55 Father Acute myocardial infarction, Onset Age: 52 Family history of coronary artery disease, Onset Age: 52 Family history of heart disease in male family member before age 55 Grandparent Carcinoma of colon Social History Social History Social History: Surrogate medical decision maker: Erma Hubbard, spouse. Code status: Full code. Smoking status: Never smoker Second hand tobacco smoke exposure: No Alcohol intake: never Substance use: never Do You Feel Safe in your Home?: Yes Lack of Transportation: No Lack of Food: Never True Current Housing: I Have Housing Concerned About Future Housing: No Difficulty Paying Gas/Electric Bills: No Difficulty Paying for Meds: No Currently Unemployed: No Education: Trade/Vocational Certificate Difficulty w/ Childcare or Family Care: No Spiritual care concerns: No Meds Home Medications and Allergies Home Medications ?Medication ?Instructions ?Recorded ?Confirmed ?Type aspirin 81 mg tablet,delayed 81 mg PO DAILY 07/22/19 02/08/25 History release (Adult Aspirin Regimen) atorvastatin 80 mg tablet (Lipitor) 80 mg PO HS 07/22/19 02/08/25 History carvedilol 6.25 mg tablet 6.25 mg PO Q12H 07/22/19 02/08/25 History ezetimibe 10 mg tablet 10 mg PO HS 07/22/19 02/08/25 History tadalafil 20 mg tablet 20 mg PO DAILY PRN sexual activity 08/30/19 02/08/25 History losartan 50 mg tablet 50 mg PO DAILY 08/18/21 02/08/25 History tamsulosin 0.4 mg capsule (Flomax) 0.4 mg PO DAILY #7 caps 12/19/24 02/08/25 Rx ticagrelor 90 mg tablet (Brilinta) 90 mg PO Q12HR 30 days #60 tabs 01/22/25 02/08/25 Rx Allergies Allergy/AdvReac Type Severity Reaction Status Date / Time lisinopril Allergy Unknown Verified 02/08/25 05:14 Vital Signs Vital Signs - 24 hr 02/07/25 23:15 02/08/25 00:12 02/08/25 00:18 Temperature 97.4 F L 97.8 F Pulse Rate 76 71 64 Respiratory Rate 17 18 18 Blood Pressure 162/101 H 137/90 80/55 L Pulse Oximetry 99 98 95 Oxygen Delivery Room Air 02/08/25 00:27 02/08/25 00:47 02/08/25 02:05 Temperature Pulse Rate 60 58 L 78 Respiratory Rate 18 18 18 Blood Pressure 92/58 L 101/74 127/86 Pulse Oximetry 96 98 98 Oxygen Delivery 02/08/25 03:48 02/08/25 04:24 Temperature Pulse Rate 52 L 60 Respiratory Rate 18 18 Blood Pressure 135/80 154/95 H Pulse Oximetry 95 100 Oxygen Delivery Exam Const: General: comfortable and no acute distress Other: A&O x3 HENMT: Mouth: Yes moist mucous membranes Eyes: Pupils: Equal, round and reactive pupils present Neck: Neck: supple Resp: Effort & Inspection: normal respiratory effort Auscultation: clear to auscultation bilaterally Cardio: Rate: regular rate Rhythm: regular rhythm GI: Inspection: non-distended GI Palp: Yes Soft to palpation : General: Yes bladder normal to palpation Neuro: Motor exam (neuro): 5/5 motor strength present throughout Extrem: General: no edema H&P: Results Labs Labs: Short CBC 02/07/25 Range/Units 23:23 WBC 6.1 (4.5-10.0) K/mm3 Hgb 13.9 L (14.0-18.0) g/dL Hct 41.4 L (42.0-52.0) % Plt Count 248 (150-375) k/mm3 BMP 02/07/25 23:23 Sodium 137 Potassium 3.9 Chloride 106 Carbon Dioxide 25 BUN 18 Creatinine 0.86 Glucose 132 H Calcium 9.1 Cardiac Enzymes 02/07/25 02/08/25 Range/Units 23:23 02:21 Troponin I < 0.012 < 0.012 (0.000-0.034) ng/mL Liver Function 02/07/25 Range/Units 23:23 Total Bilirubin 1.3 (0.2-1.3) mg/dL AST 29 (17-59) U/L ALT 22 (6-50) U/L Alkaline Phosphatase 48 (38-126) U/L Albumin 3.9 (3.5-5.1) g/dL Assessment and Plan Assessment and plan (1) Essential hypertension: Code(s): I10 - Essential (primary) hypertension Status: Acute (2) Coronary artery disease: Code(s): I25.10 - Atherosclerotic heart disease of [place] coronary artery without angina pectoris Status: Acute (3) Chest pain: Code(s): R07.9 - Chest pain, unspecified Status: Acute Plan 59-year-old male with past medical history hyperlipidemia, hypertension, CAD status post stents in 2012 and 2018 with NSTEMI with stent to mid PDA and balloon angioplasty of mid RCA for re-expansion on 01/22/[address] Walker who presents back to [facility] on 02/08/2025 with chest pain again. Last admission is chest pains with central and sharp, this time it is left-sided and tight. 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 The chest pain was persistent. He did not have any nitroglycerin or other medications he has been taking his prescribed aspirin statin Coreg losartan and Brilinta. In [place] ER he received nitroglycerin with resultant hypotension 92/58. He had also received morphine 4 mg IV x1 and aspirin 324 mg p.o. x1. He was given a 500 cc bolus thereafter and his blood pressure improved. He reports his pain was down from a 4 to a 1 and rested comfortably. Troponin negative x2 with a 3rd pending. EKG showing T-wave abnormalities which are similar to prior admission. ----- Admitted for ACS rule out. Telemetry monitoring. Nitroglycerin and morphine p.r.n. pending cardiology consultation. Patient wishes to be full code. SCDs. Hospitalist MIPS Advance Care Plan I have confirmed that the patient's Advanced Care Plan is present, code status is documented, or surrogate decision maker is listed in patient medical record.: Yes Medication Reconciliation I have utilized all available resources to obtain, update and review the patients current medications (includes all prescriptions, OTC, herbals, cannabis, and nutritional supplements).: Yes
[2025-02-08 07:05] LABS: Troponin I < 0.012 ng/mL (0.000-0.034)
--- NOTE | 2025-02-08 07:38 | PCRCNOTE ---
Patient stated that he does not wish to use a CPAP.
[2025-02-08] MEDS: LOSARTAN POTASSIUM 50 MG TABLET PO (09:41)
[2025-02-08] MEDS: ASPIRIN 81 MG ENTERIC TABLET PO (09:41)
--- NOTE | 2025-02-08 11:23 | P.PNIM_ITS ---
Progress Note: A&P Assessment and Plan (1) Essential hypertension: Code(s): I10 - Essential (primary) hypertension Status: Acute (2) Coronary artery disease: Code(s): I25.10 - Atherosclerotic heart disease of [place] coronary artery without angina pectoris Status: Acute (3) Chest pain: Code(s): R07.9 - Chest pain, unspecified Status: Acute Plan Unstable angina hx of CAD status post stents in 2012 and 2017 with NSTEMI with stent to mid PDA and balloon angioplasty of mid RCA for re-expansion on 01/22/[address] Walker who presents back to [facility] on 02/08/2025 with chest pain again. now has left-sided and tight. c/w aspirin statin Coreg losartan and Brilinta. In [place] ER he received nitroglycerin with result Troponin negative x3 EKG showing sinus rhythm no specific ST T-wave changes cardiology consultation. Appreciate input Continue home medication for hypertension, hyperlipidemia Stable Patient wishes to be full code. SCDs. Subjective Date/time seen: 02/08/25 11:23 Interval history: I saw and exam patient today, patient has intermittent chest pain locating in left chest Denies shortness breath, fever, chills abdomen pain nausea vomiting. Exam Narrative: GENERAL: Pleasant, in no acute distress. Well-nourished. - EYES: EOMI. Anicteric. - HENT: Moist mucous membranes. - LUNGS: Clear to auscultation bilateral ly, no wheezing, rhonchi, or rales. - CARDIOVASCULAR: Regular rate and rhyth m. No murmur. No JVD. - ABDOMEN: Soft, non-tender and non-dist ended. No palpable masses. - EXTREMITIES: No edema. Peripheral puls es 2+. Non-tender. - NEUROLOGIC: No focal neurological defi cits. CN II-XII grossly intact. - PSYCHIATRIC: Awake, Alert and oriented x 3. Appropriate mood and affect. - SKIN: No rashes or lesions. Warm. - LYMPH: No cervical lymphadenopathy. Objective Data Vital Signs Vital Signs: Vital Signs - 24 hr 02/07/25 23:15 02/08/25 00:12 02/08/25 00:18 Temperature 97.4 F L 97.8 F Pulse Rate 76 71 64 Respiratory Rate 17 18 18 Blood Pressure 162/101 H 137/90 80/55 L Pulse Oximetry 99 98 95 Oxygen Delivery Room Air Oxygen Flow Rate 02/08/25 00:27 02/08/25 00:47 02/08/25 02:05 Temperature Pulse Rate 60 58 L 78 Respiratory Rate 18 18 18 Blood Pressure 92/58 L 101/74 127/86 Pulse Oximetry 96 98 98 Oxygen Delivery Oxygen Flow Rate 02/08/25 03:48 02/08/25 04:00 02/08/25 04:24 Temperature 97.1 F L Pulse Rate 52 L 52 L 60 Respiratory Rate 18 16 18 Blood Pressure 135/80 147/84 H 154/95 H Pulse Oximetry 95 100 100 Oxygen Delivery Oxygen Flow Rate 02/08/25 05:20 02/08/25 08:00 02/08/25 08:00 Temperature 97.0 F L Pulse Rate 54 L 57 L Respiratory Rate 16 Blood Pressure 150/87 H Pulse Oximetry 99 100 Oxygen Delivery Nasal Cannula Oxygen Flow Rate 1 02/08/25 08:43 02/08/25 09:41 Temperature Pulse Rate 54 L Respiratory Rate Blood Pressure Pulse Oximetry 97 Oxygen Delivery Nasal Cannula Oxygen Flow Rate 1 Intake/Output Intake/Output: Intake & Output 02/05/25 02/06/25 02/07/25 02/08/25 23:59 23:59 23:59 23:59 Intake Total 500 Balance 500 Meds/Results Medications: Active Medications Generic Name Dose Route Start Last Admin Trade Name Freq PRN Reason Stop Dose Admin Aspirin 81 mg 02/08/25 09:00 02/08/25 09:41 Aspirin 81 Mg Enteric Tablet PO 81 mg DAILY [facility] Administration Atorvastatin Calcium 80 mg 02/08/25 21:00 Atorvastatin [address] [facility] Carvedilol 6.25 mg 02/08/25 09:00 02/08/25 09:41 Carvedilol 6.25 Mg Tablet PO 6.25 mg Q12HR [facility] Administration Losartan Potassium 50 mg 02/08/25 09:00 02/08/25 09:41 Losartan Potassium 50 Mg Tablet PO 50 mg DAILY [facility] Administration Morphine Sulfate 2 mg 02/08/25 05:52 Morphine Sulfate (*Crx) 2 Mg/Ml Inj IV PUSH Q4H PRN Pain Rated 7-10 Nitroglycerin 0.4 mg 02/08/25 05:52 Nitroglycerin Sl 0.4 Mg Tablet SUBLINGUAL Q5MIN PRN Chest Pain Ticagrelor 90 mg 02/08/25 09:00 Ticagrelor 90 Mg Tablet PO Q12HR [facility] Radiology Results: ITS Impressions Chest X-Ray 02/07/25 23:37 IMPRESSION: No acute cardiopulmonary process. Labs Labs: Laboratory Results - last 24 hr 02/07/25 02/08/25 02/08/25 23:23 02:21 05:34 WBC 6.1 RBC 4.47 L Hgb 13.9 L Hct 41.4 L MCV 92.6 MCH 31.1 MCHC 33.6 RDW 13.2 Plt Count 248 MPV 9.6 Immature Gran % (Auto) 0.3 Neut % (Auto) 48.6 Lymph % (Auto) 34.9 [place] % (Auto) 13.1 H Eos % (Auto) 2.3 Baso % (Auto) 0.8 Lymph # (Auto) 2.13 [place] # (Auto) 0.8 H Eos # (Auto) 0.1 Baso # (Auto) 0.1 Abs Immat Gran (auto) 0.02 Absolute Neuts (auto) 3.0 Absolute Nucleated RBC 0.000 Nucleated RBC % 0.0 PT 13.3 INR 1.0 APTT 27.4 Sodium 137 Potassium 3.9 Chloride 106 Carbon Dioxide 25 Anion Gap 6 BUN 18 Creatinine 0.86 Estim Creat Clear Calc 91 Estimated GFR > 60 Glucose 132 H Calcium 9.1 Total Bilirubin 1.3 AST 29 ALT 22 Alkaline Phosphatase 48 Troponin I < 0.012 < 0.012 < 0.012 Total Protein 6.8 Albumin 3.9 Lipase 130
[2025-02-08] MEDS: TICAGRELOR 90 MG TABLET PO ×2 (12:13→20:51)
--- NOTE | 2025-02-08 14:35 | P.CONCA_ITS ---
Assessment and Plan Assessment and plan (1) Chest pain: Code(s): R07.9 - Chest pain, unspecified Status: Acute (2) Coronary artery disease: Code(s): I25.10 - Atherosclerotic heart disease of [place] coronary artery without angina pectoris Status: Acute (3) Essential hypertension: Code(s): I10 - Essential (primary) hypertension Status: Acute (4) Hyperlipidemia: Code(s): E78.5 - Hyperlipidemia, unspecified Status: Acute Plan Chest pain CAD s/p multiple stents in the past (stent to the ostial and proximal LAD, ostial diagonal, mid LCX, and mid RCA) most recent one being FAUSTINA to RPDA and POBA to mid RCA ISR 2 weeks ago 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 Right now he complains of pain of intensity 5/10. He had recent stent to his RPDA and POBA to his RCA two weeks prior to this admission. It is reassuring for now that his troponin x3 are negative. Will have low threshold for repeat coronary angiogram to evaluate patency of these vessels if he continues to have chest pain Continue aspirin, ticagrelor, statin, beta-charis, losartan Good risk factor control including blood pressure, blood sugars, lipids Check and replace electrolytes to keep potassium greater than 4 and magnesium greater than 2 Cardiac rehab at 1 month EKG p.r.n. for chest pain Will not repeat an echo as he had a recent echo on 01/23/2025 Will reassess in a.m. 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 Patient states that his chest pain started when he was driving to work on Thursday. 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 and his work involves lifting weights. He went on to work despite chest pain and finished at 7:00 a.m. on Thursday morning. During this time his chest pain was off and on. Since the chest pain did not relieve on Thursday he decided to get checked and came to the [facility]. He reports 5/10 left-sided chest pressure at this time without any radiation. He states that this pain is less intense than the pain he had 2 weeks back when he had PCI to RPDA and POBA to mid RCA. No associated shortness of breath or diaphoresis. No dizziness, palpitations, lightheadedness, presyncope, syncope, orthopnea, PND, leg swelling, recent weight gain. He is compliant with his medications. Troponins were checked and negative. Cardiology is consulted for further recommendations. Workup: Troponin: Negative x3 EKG: Sinus rhythm, possible old anteroseptal MD, T-wave inversion in anterolateral leads Chest x-ray: No acute cardiopulmonary pathology Prior cardiac workup: TTE in 01/2025: LVEF 50-55%, inferoseptal and anteroseptal hypokinesis, no significant valvular disease Cardiac catheterization 01/2025:Findings:: 1- left coronary artery is a large artery that divides into large LAD, large circumflex artery. Left main is free of disease. 2- left anterior descending artery is a large artery that runs and wraps around the apex. Has a patent stent covering the ostium and proximal portion. Also a medium-sized diagonal branch has stent covering ostium. Widely patent. 3- left circumflex artery is a large artery and codominant right knee patent stent in the mid segment. 4- right coronary artery is very large artery. Has a stent in the mid segment with 30% InStent restenosis. PDA in the mid segment 80%. 5- LVEDP was 12 mm Hg and no gradient across aortic valve. 6- opening arterial pressure was 118/76 and closing pressure was 117/69 7- right femoral artery angiogram shows no significant disease in the right common femoral artery. 8-intravascular ultrasound of the RCA showed that the PDA diameter 3 mm. Proximal RCA diameter almost 5 mm and distal to the mid stent 4.5 mm. The stent strut size measured 3.5 mm. 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 Ejection fraction 55%. Conclusion:: -stent to mid PDA -balloon angioplasty of the mid RCA stent for re- expansion. -patent stent ostial, proximal LAD, ostial diagonal, mid left circumflex artery. -LV apical aneurysm Review of Systems 2 Review of Systems: A complete review of systems was performed and negative other than those mentioned HPI [facility] Past Medical History Medical History Essential hypertension Hyperlipidemia Coronary artery disease Kidney stone Surgical History Surgical History History of lithotripsy History of coronary angioplasty with insertion of stent Family History Family History Sibling Family history of obesity Family history of coronary artery disease Family history of diabetes mellitus in first degree relative Mother Patient's mother is Family history of heart disease in male family member before age 55 Father Acute myocardial infarction, Onset Age: 52 Family history of coronary artery disease, Onset Age: 52 Family history of heart disease in male family member before age 55 Grandparent Carcinoma of colon Social History Social History Social History: Surrogate medical decision maker: Erma Hubbard, spouse. Code status: Full code. Smoking status: Never smoker Second hand tobacco smoke exposure: No Alcohol intake: never Substance use: never Do You Feel Safe in your Home?: Yes Lack of Transportation: No Lack of Food: Never True Current Housing: I Have Housing Concerned About Future Housing: No Difficulty Paying Gas/Electric Bills: No Difficulty Paying for Meds: No Currently Unemployed: No Education: Trade/Vocational Certificate Difficulty w/ Childcare or Family Care: No Spiritual care concerns: No Meds Home Medications and Allergies Home Medications ?Medication ?Instructions ?Recorded ?Confirmed ?Type aspirin 81 mg tablet,delayed 81 mg PO DAILY 07/22/19 02/08/25 History release (Adult Aspirin Regimen) atorvastatin 80 mg tablet (Lipitor) 80 mg PO HS 07/22/19 02/08/25 History carvedilol 6.25 mg tablet 6.25 mg PO Q12H 07/22/19 02/08/25 History ezetimibe 10 mg tablet 10 mg PO HS 07/22/19 02/08/25 History tadalafil 20 mg tablet 20 mg PO DAILY PRN sexual activity 08/30/19 02/08/25 History losartan 50 mg tablet 50 mg PO DAILY 08/18/21 02/08/25 History tamsulosin 0.4 mg capsule (Flomax) 0.4 mg PO DAILY #7 caps 12/19/24 02/08/25 Rx ticagrelor 90 mg tablet (Brilinta) 90 mg PO Q12HR 30 days #60 tabs 01/22/25 02/08/25 Rx Allergies Allergy/AdvReac Type Severity Reaction Status Date / Time lisinopril Allergy Unknown Verified 02/08/25 05:14 Vital Signs Vital Signs - 24 hr 02/07/25 23:15 02/08/25 00:12 02/08/25 00:18 Temperature 36.3 C L 36.6 C Pulse Rate 76 71 64 Respiratory Rate 17 18 18 Blood Pressure 162/101 H 137/90 80/55 L Pulse Oximetry 99 98 95 Oxygen Delivery Room Air Oxygen Flow Rate 02/08/25 00:27 02/08/25 00:47 02/08/25 02:05 Temperature Pulse Rate 60 58 L 78 Respiratory Rate 18 18 18 Blood Pressure 92/58 L 101/74 127/86 Pulse Oximetry 96 98 98 Oxygen Delivery Oxygen Flow Rate 02/08/25 03:48 02/08/25 04:00 02/08/25 04:24 Temperature 36.2 C L Pulse Rate 52 L 52 L 60 Respiratory Rate 18 16 18 Blood Pressure 135/80 147/84 H 154/95 H Pulse Oximetry 95 100 100 Oxygen Delivery Oxygen Flow Rate 02/08/25 05:20 02/08/25 08:00 02/08/25 08:00 Temperature 36.1 C L Pulse Rate 54 L 57 L Respiratory Rate 16 Blood Pressure 150/87 H Pulse Oximetry 99 100 Oxygen Delivery Nasal Cannula Oxygen Flow Rate 1 02/08/25 08:43 02/08/25 09:41 02/08/25 12:00 Temperature 36.6 C Pulse Rate 54 L 53 L Respiratory Rate 16 Blood Pressure 152/93 H Pulse Oximetry 97 99 Oxygen Delivery Nasal Cannula Oxygen Flow Rate 1 Exam 2 Narrative: General: Alert oriented x3, no acute distress Neck: Supple, no JVD Chest: Bilaterally clear to auscultation, no rales or rhonchi Cardiac: S1, S2 +, regular rate, regular rhythm, no murmurs or rubs Extremities: No pedal edema, no skin rash Neurologic: Alert and oriented x3, no focal neurological deficits Results Labs and Meds 02/07/25 23:23 02/07/25 23:23 Lab results: Cardiac Enzymes 02/07/25 02/08/25 02/08/25 Range/Units 23:23 02:21 05:34 AST 29 (17-59) U/L Troponin I < 0.012 < 0.012 < 0.012 (0.000-0.034) ng/mL Coagulation 02/07/25 Range/Units 23:23 PT 13.3 (11.1-14.7) Seconds APTT 27.4 (22.3-36.8) Seconds CBC 02/07/25 Range/Units 23:23 WBC 6.1 (4.5-10.0) K/mm3 RBC 4.47 L (4.6-6.20) M/mm3 Hgb 13.9 L (14.0-18.0) g/dL Hct 41.4 L (42.0-52.0) % Plt Count 248 (150-375) k/mm3 Lymph # (Auto) 2.13 (0.9-3.2) K/mm3 [place] # (Auto) 0.8 H (0.1-0.6) K/mm3 Eos # (Auto) 0.1 (0-0.3) K/mm3 Baso # (Auto) 0.1 (0.0-0.1) K/mm3 Comprehensive Metabolic Panel 02/07/25 Range/Units 23:23 Sodium 137 (137-145) mmol/L Potassium 3.9 (3.4-5.0) mmol/L Chloride 106 (98-107) mmol/L Carbon Dioxide 25 (22-30) mmol/L BUN 18 (9-20) mg/dL Creatinine 0.86 (0.7-1.3) mg/dL Glucose 132 H (65-110) mg/dL Calcium 9.1 (8.4-10.2) mg/dL AST 29 (17-59) U/L ALT 22 (6-50) U/L Alkaline Phosphatase 48 (38-126) U/L Total Protein 6.8 (6.3-8.2) g/dL Albumin 3.9 (3.5-5.1) g/dL Intake and Output 02/07/25 02/08/25 02/08/25 23:59 07:59 15:59 Intake Total 500 240 Balance 500 240 Intake: IV 500 Sodium Chloride 0.9% IV 500 ml 500 @ 999 mls/hr IV CONT .Q31M STA Rx#:[id number] Oral 240 Other: # Unmeasured Voids 1 Patient Weight 02/08/25 23:59 Weight 98.4 kg
[2025-02-08] MEDS: TAMSULOSIN HCL 0.4 MG CAPSULE PO (17:09)
[2025-02-08] MEDS: WATER FOR IRRIGATION, STERILE 500 ML BOTTLE (18:29)
[2025-02-08] MEDS: ATORVASTATIN 40 MG TABLET 80 MG PO (20:51)
[2025-02-09] VITALS: BP 122/81; PULSE 54; PULSE 59; RESP 20; TEMP 36.6; O2SAT 98
[2025-02-09 04:00] VITALS: BP 120/86; PULSE 48; PULSE 64; RESP 20; TEMP 36.1; O2SAT 100
[2025-02-09 08:00] VITALS: PULSE 61
--- NOTE | 2025-02-09 08:50 | P.PNCA_ITS ---
Progress Note: A&P Assessment and Plan (1) Chest pain: Code(s): R07.9 - Chest pain, unspecified Status: Acute (2) Coronary artery disease: Code(s): I25.10 - Atherosclerotic heart disease of [place] coronary artery without angina pectoris Status: Acute (3) Essential hypertension: Code(s): I10 - Essential (primary) hypertension Status: Acute (4) Hyperlipidemia: Code(s): E78.5 - Hyperlipidemia, unspecified Status: Acute Plan Chest pain-ACS rule out CAD s/p multiple stents in the past (stent to the ostial and proximal LAD, ostial diagonal, mid LCX, and mid RCA) most recent one being FAUSTINA to RPDA and POBA to mid RCA ISR 2 weeks ago, catheterization at this time showed widely patent prior stents 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 No increased chest pain with walking to the bathroom and back to his bed. Troponin x3 negative. ACS has been ruled out. Most recent echo on 01/23/2025 showed LVEF of 50-55% and no significant valvular pathology. Recent catheterization in 01/2025 showed patent prior stents, disease in RPDA status post PCI and ISR in mid RCA status post POBA Continue aspirin, ticagrelor for 1 year post PCI then continue aspirin indefinitely Continue statin Continue beta-charis and losartan Good risk factor control including blood pressure, blood sugars, lipids Check and replace electrolytes to keep potassium greater than 4 and magnesium greater than 2 Cardiac rehab Okay to discharge from cardiac standpoint. Follow-up with outpatient cardiology Thank you for allowing us to participate in the care of this patient. Cardiology will sign off. Please call us with any questions. Subjective Date/time seen: 02/09/25 08:50 Interval history: Reason for encounter: Chest pain Interval history: Patient reports mild left-sided chest pain of intensity 2 x 10 this morning. It does not get worse with deep breaths or change in position. No radiation of pain to any other part of the body. Troponins have been negative x3. Telemetry shows sinus rhythm. Review of Systems Cardiovascular: Comments: As per HPI Respiratory: Comments: As per HPI Exam Narrative: General: Alert oriented x3, no acute distress Neck: Supple, no JVD Chest: Bilaterally clear to auscultation, no rales or rhonchi Cardiac: S1, S2 +, regular rate, regular rhythm, no murmurs or rubs Extremities: No pedal edema, no skin rash Neurologic: Alert and oriented x3, no focal neurological deficits Objective Data Vital Signs Vital Signs: Vital Signs - 24 hr 02/08/25 09:41 02/08/25 12:00 02/08/25 12:00 Temperature 36.6 C Pulse Rate 54 L 53 L 61 Respiratory Rate 16 Blood Pressure 152/93 H Pulse Oximetry 99 Oxygen Delivery Fraction of Inspired Oxygen 02/08/25 16:00 02/08/25 16:00 02/08/25 20:00 Temperature 36.5 C Pulse Rate 74 57 L 63 Respiratory Rate 18 Blood Pressure 169/83 H Pulse Oximetry 99 Oxygen Delivery Fraction of Inspired Oxygen 02/08/25 20:50 02/08/25 20:51 02/08/25 22:00 Temperature 36.6 C Pulse Rate 64 68 Respiratory Rate 20 Blood Pressure 138/99 H Pulse Oximetry 98 Oxygen Delivery Room Air Fraction of Inspired Oxygen 02/08/25 22:02 02/08/25 22:44 02/09/25 00:00 Temperature Pulse Rate 66 59 L Respiratory Rate 20 Blood Pressure Pulse Oximetry 97 98 Oxygen Delivery Room Air Autopap Fraction of Inspired Oxygen 21 02/09/25 00:00 02/09/25 04:00 02/09/25 04:00 Temperature 36.6 C 36.1 C L Pulse Rate 54 L 48 L 64 Respiratory Rate 20 20 Blood Pressure 122/81 120/86 Pulse Oximetry 98 100 Oxygen Delivery Fraction of Inspired Oxygen Intake/Output Intake/Output: Intake & Output 02/06/25 02/07/25 02/08/25 02/09/25 23:59 23:59 23:59 23:59 Intake Total 1530 150 Balance 1530 150 Meds/Results Medications: Active Medications Generic Name Dose Route Start Last Admin Trade Name Freq PRN Reason Stop Dose Admin Aspirin 81 mg 02/08/25 09:00 02/08/25 09:41 Aspirin 81 Mg Enteric Tablet PO 81 mg DAILY CAMILLA Administration Atorvastatin Calcium 80 mg 02/08/25 21:00 02/08/25 20:51 Atorvastatin 40 Mg Tablet PO 80 mg HS CAMILLA Administration Carvedilol 6.25 mg 02/08/25 09:00 02/08/25 20:51 Carvedilol 6.25 Mg Tablet PO 6.25 mg Q12HR [place]A Administration Losartan Potassium 50 mg 02/08/25 09:00 02/08/25 09:41 Losartan Potassium 50 Mg Tablet PO 50 mg DAILY CAMILLA Administration Morphine Sulfate 2 mg 02/08/25 05:52 Morphine Sulfate (*Crx) 2 Mg/Ml Inj IV PUSH Q4H PRN Pain Rated 7-10 Nitroglycerin 0.4 mg 02/08/25 05:52 Nitroglycerin Sl 0.4 Mg Tablet SUBLINGUAL Q5MIN PRN Chest Pain Tamsulosin HCl 0.4 mg 02/08/25 12:15 02/08/25 17:09 Tamsulosin Hcl 0.4 Mg Capsule PO 0.4 mg QAM CAMILLA Administration Ticagrelor 90 mg 02/08/25 09:00 02/08/25 20:51 Ticagrelor 90 Mg Tablet PO 90 mg Q12HR [place]A Administration Radiology Results: ITS Impressions Chest X-Ray 02/07/25 23:37 IMPRESSION: No acute cardiopulmonary process.
[2025-02-09 09:10] VITALS: PULSE 50
[2025-02-09] MEDS: ASPIRIN 81 MG ENTERIC TABLET PO (09:10)
[2025-02-09] MEDS: LOSARTAN POTASSIUM 50 MG TABLET PO (09:10)
[2025-02-09] MEDS: TICAGRELOR 90 MG TABLET PO (09:10)
[2025-02-09] MEDS: TAMSULOSIN HCL 0.4 MG CAPSULE PO (09:10)
--- NOTE | 2025-02-09 10:48 | PM.IMPN ---
Progress Note: A&P Assessment and Plan (1) Essential hypertension: Code(s): I10 - Essential (primary) hypertension Status: Acute (2) Coronary artery disease: Code(s): I25.10 - Atherosclerotic heart disease of [place] coronary artery without angina pectoris Status: Acute (3) Chest pain: Code(s): R07.9 - Chest pain, unspecified Status: Acute Plan Unstable angina hx of CAD status post stents in 2012 and 2018 with NSTEMI with stent to mid PDA and balloon angioplasty of mid RCA for re-expansion on 01/22/[address] Walker who presents back to [facility] on 02/08[facility]2025 with chest pain again. now has left-sided and tight. c/w aspirin statin Coreg losartan and Brilinta. In [place] [facility] he received nitroglycerin with result Troponin negative x3 EKG showing sinus rhythm no specific ST T-wave changes cardiology consultation. 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 SCDs. Subjective Date/time seen: 02/09/25 10:48 Interval history: I saw and exam patient today in presents of patient's Denies chest pain, headache, lightheadedness shortness breath, fever, chills abdomen pain nausea vomiting. Exam Narrative: GENERAL: Pleasant, in no acute distress. Well-nourished. - EYES: EOMI. Anicteric. - HENT: Moist mucous membranes. - LUNGS: Clear to auscultation bilaterally, no wheezing, rhonchi, or rales. - CARDIOVASCULAR: Regular rate and rhythm. No murmur. No JVD. - ABDOMEN: Soft, non-tender and non-distended. No palpable masses. - EXTREMITIES: No edema. Peripheral pulses 2+. Non-tender. - NEUROLOGIC: No focal neurological deficits. CN II-XII grossly intact. - PSYCHIATRIC: Awake, Alert and oriented x 3. Appropriate mood and affect. - SKIN: No rashes or lesions. Warm. - LYMPH: No cervical lymphadenopathy. Objective Data Vital Signs Vital Signs: Vital Signs - 24 hr 02/08/25 12:00 02/08/25 12:00 02/08/25 16:00 Temperature 97.8 F Pulse Rate 53 L 61 74 Respiratory Rate 16 Blood Pressure 152/93 H Pulse Oximetry 99 Oxygen Delivery Fraction of Inspired Oxygen 02/08/25 16:00 02/08/25 20:00 02/08/25 20:50 Temperature 97.7 F Pulse Rate 57 L 63 Respiratory Rate 18 Blood Pressure 169/83 H Pulse Oximetry 99 Oxygen Delivery Room Air Fraction of Inspired Oxygen 02/08/25 20:51 02/08/25 22:00 02/08/25 22:02 Temperature 97.8 F Pulse Rate 64 68 66 Respiratory Rate 20 20 Blood Pressure 138/99 H Pulse Oximetry 98 97 Oxygen Delivery Room Air Fraction of Inspired Oxygen 21 02/08/25 22:44 02/09/25 00:00 02/09/25 00:00 Temperature 97.8 F Pulse Rate 59 L 54 L Respiratory Rate 20 Blood Pressure 122/81 Pulse Oximetry 98 98 Oxygen Delivery Autopap Fraction of Inspired Oxygen 02/09/25 04:00 02/09/25 04:00 02/09/25 08:00 Temperature 97.0 F L Pulse Rate 48 L 64 61 Respiratory Rate 20 Blood Pressure 120/86 Pulse Oximetry 100 Oxygen Delivery Fraction of Inspired Oxygen 02/09/25 08:00 02/09/25 09:10 Temperature Pulse Rate 50 L Respiratory Rate Blood Pressure Pulse Oximetry Oxygen Delivery Room Air Fraction of Inspired Oxygen Intake/Output Intake/Output: Intake & Output 02/06/25 02/07/25 02/08/25 02/09/25 23:59 23:59 23:59 23:59 Intake Total 1530 150 Balance 1530 150 Meds/Results Medications: Active Medications Generic Name Dose Route Start Last Admin Trade Name Freq PRN Reason Stop Dose Admin Aspirin 81 mg 02/08/25 09:00 02/09/25 09:10 Aspirin 81 Mg Enteric Tablet PO 81 mg DAILY [place]A Administration Atorvastatin Calcium 80 mg 02/08/25 21:00 02/08/25 20:51 Atorvastatin 40 Mg Tablet PO 80 mg HS CAM[place]A Administration Carvedilol 6.25 mg 02/08/25 09:00 02/09/25 09:10 Carvedilol 6.25 Mg Tablet PO 6.25 mg Q12HR [place] Administration Losartan Potassium 50 mg 02/08/25 09:00 02/09/25 09:10 Losartan Potassium 50 Mg Tablet PO 50 mg DAILY [place]A Administration Morphine Sulfate 2 mg 02/08/25 05:52 Morphine Sulfate (*Crx) 2 Mg/Ml Inj IV PUSH Q4H PRN Pain Rated 7-10 Nitroglycerin 0.4 mg 02/08/25 05:52 Nitroglycerin Sl 0.4 Mg Tablet SUBLINGUAL Q5MIN PRN Chest Pain Tamsulosin HCl 0.4 mg 02/08/25 12:15 02/09/25 09:10 Tamsulosin Hcl 0.4 Mg Capsule PO 0.4 mg QAM [place] Administration Ticagrelor 90 mg 02/08/25 09:00 02/09/25 09:10 Ticagrelor 90 Mg Tablet PO 90 mg Q12HR [place] Administration Radiology Results: ITS Impressions Chest X-Ray 02/07/25 23:37 IMPRESSION: No acute cardiopulmonary process. Labs Labs: Laboratory Results - last 24 hr 02/07/25 02/08/25 02/08/25 23:23 02:21 05:34 WBC 6.1 RBC 4.47 L Hgb 13.9 L Hct 41.4 L MCV 92.6 MCH 31.1 MCHC 33.6 RDW 13.2 Plt Count 248 MPV 9.6 Immature Gran % (Auto) 0.3 Neut % (Auto) 48.6 Lymph % (Auto) 34.9 [place] % (Auto) 13.1 H Eos % (Auto) 2.3 Baso % (Auto) 0.8 Lymph # (Auto) 2.13 [place] # (Auto) 0.8 H Eos # (Auto) 0.1 Baso # (Auto) 0.1 Abs Immat Gran (auto) 0.02 Absolute Neuts (auto) 3.0 Absolute Nucleated RBC 0.000 Nucleated RBC % 0.0 PT 13.3 INR 1.0 APTT 27.4 Sodium 137 Potassium 3.9 Chloride 106 Carbon Dioxide 25 Anion Gap 6 BUN 18 Creatinine 0.86 Estim Creat Clear Calc 91 Estimated GFR > 60 Glucose 132 H Calcium 9.1 Total Bilirubin 1.3 AST 29 ALT 22 Alkaline Phosphatase 48 Troponin I < 0.012 < 0.012 < 0.012 Total Protein 6.8 Albumin 3.9 Lipase 130
--- NOTE | 2025-02-09 10:52 | P.DS_ITS ---
DS: Admitting Diagnosis Discharge Date 02/09/25 Admitting Diagnosis (1) Essential hypertension: Code(s): I10 - Essential (primary) hypertension Status: Acute (2) Coronary artery disease: Code(s): I25.10 - Atherosclerotic heart disease of [place] coronary artery without angina pectoris Status: Acute (3) Chest pain: Code(s): R07.9 - Chest pain, unspecified Status: Acute DS: Discharge Diagnosis Discharge Diagnosis (1) Essential hypertension: Code(s): I10 - Essential (primary) hypertension Status: Acute (2) Coronary artery disease: Code(s): I25.10 - Atherosclerotic heart disease of [place] coronary artery without angina pectoris Status: Acute (3) Chest pain: Code(s): R07.9 - Chest pain, unspecified Status: Acute DS: Summary Hospital Course Hospital Course: 59-year-old male with past medical history hyperlipidemia, hypertension, CAD status post stents in 2012 and 2017 with NSTEMI with stent to mid PDA and balloon angioplasty of mid RCA for re-expansion on 01/22/[address] Walker who presents back to [facility] on 02/08/2025 with chest pain again. Last admission is chest pains with central and sharp, this time it is left-sided and tight. 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 The chest pain was persistent. He did not have any nitroglycerin or other medications he has been taking his prescribed aspirin statin Coreg losartan and Brilinta. In [place] [facility] he received nitroglycerin with resultant hypotension 92/58. He had also received morphine 4 mg IV x1 and aspirin 324 mg p.o. x1. He was given a 500 cc bolus thereafter in his blood pressure improved. He reports his pain was down from a 4 to a 1-2 and rested comfortably. Troponin negative x2 with a 3rd pending. EKG showing T-wave abnormalities which are similar to prior admission. The following med issues have been addressed during hospitalization Unstable angina hx of CAD status post stents in 2012 and 2017 with NSTEMI with stent to mid PDA and balloon angioplasty of mid RCA for re-expansion on 01/22/[address] Walker who presents back to [facility] on 02/08/2025 with chest pain again. now has left-sided and tight. c/w aspirin statin Coreg losartan and Brilinta. In [place] ER he received nitroglycerin with result Troponin negative x3 EKG showing sinus rhythm no specific ST T-wave changes Echocardiogram January 23, 2025 showed 1. The left ventricle is normal in size with normal systolic function. The left ventricular ejection fraction is visually estimated to be 50-55%. The inferoseptum and anteroseptum are hypokinetic. 2. The right ventricle is normal in size and systolic function. cardiology consultation. Appreciate input dc pt per car hostler recommendation Continue home medication for hypertension, hyperlipidemia Stable Time Spent with Patient Time attestation: Total time spent providing and/or coordinating discharge services: Exam Narrative: GENERAL: Pleasant, in no acute distress. Well-nourished. - EYES: EOMI. Anicteric. - HENT: Moist mucous membranes. - LUNGS: Clear to auscultation bilateral ly, no wheezing, rhonchi, or rales. - CARDIOVASCULAR: Regular rate and rhyth m. No murmur. No JVD. - ABDOMEN: Soft, non-tender and non-dist ended. No palpable masses. - EXTREMITIES: No edema. Peripheral puls es 2+. Non-tender. - NEUROLOGIC: No focal neurological defi cits. CN II-XII grossly intact. - PSYCHIATRIC: Awake, Alert and oriented x 3. Appropriate mood and affect. - SKIN: No rashes or lesions. Warm. - LYMPH: No cervical lymphadenopathy. Discharge Plan Discharge Attending physician on discharge: Gaston Fine Consulting providers: Analilia Ramirez Discharging Clinician: Gaston Fine Anticipated Discharge Date/Time: 02/09/25 13:52 Patient Disposition: Home Activity: as tolerated Diet: as tolerated and heart healthy Patient Instructions: Antibiotic Form, Blood Thinners (GEN) Patient Language: Ecuad[place] Stand Alone Forms: General Discharge Information Follow-up/Referrals: Stewart,KRYSTAL Jarrett [Primary Care Provider] - (Needs to see PCP in 1 week) Analilia Ramirez MD [Physician] - (See car hostler at scheduled appointment) Discharge Medications: Continued losartan 50 mg tablet 50 mg PO DAILY tadalafil 20 mg Tablet 20 mg PO DAILY PRN (Reason: sexual activity) aspirin [Adult Aspirin Regimen] 81 mg tablet,delayed release (DR/EC) 81 mg PO DAILY Patient Comments: carvedilol 6.25 mg tablet 6.25 mg PO Q12H ezetimibe 10 mg tablet 10 mg PO HS atorvastatin [Lipitor] 80 mg tablet 80 mg PO HS tamsulosin [Flomax] 0.4 mg capsule 0.4 mg PO DAILY Qty: 7 0RF ticagrelor [Brilinta] 90 mg Tablet 90 mg PO Q12HR 30 Days Qty: 60 0RF Date of admission: 02/08/25 03:37 Primary Care Provider: Stewart,Luiza Admitting Provider: Chio Avilez Attending physician on admission: Chio Avilez Condition: Stable
[2025-02-09 12:00] VITALS: PULSE 69
== END 2025-02-09 13:15 | disposition home or self-care (01) ==
LOC: ANHED 02-08 03:37 → ANH3MEDSUR 02-08 05:33
PROVIDERS: Admitting Provider General Practice; Emergency Provider Emergency Medicine; PCP Nurse Practitioner Family; Visit Provider Hospitalist
DX: R07.89 Other chest pain (principal); I10 Essential (primary) hypertension; I25.10 Atherosclerotic heart disease of native coronary artery without angina pectoris; E78.5 Hyperlipidemia, unspecified; Z79.82 Long term (current) use of aspirin; Z87.442 Personal history of urinary calculi
CPT/HCPCS: 36415; 71045; 80053; 83690; 84484; 85025; 85610; 85730; 93005; 94002; 96374; 99285; A9270; G0378; J2270; J7030

== ENCOUNTER 2025-06-29 08:45 | Outpatient (RCR) | payer BC, SELFPAY ==
[2025-03-17 08:49] VITALS: PULSE 65
== END 2025-06-29 10:20 | disposition home or self-care (01) ==
LOC: ANHCPREHAB 08:45
PROVIDERS: PCP Nurse Practitioner Family; Visit Provider Internal Medicine Cardiovascular Disease
DX: Z98.61 Coronary angioplasty status (principal)
CPT/HCPCS: 93798